=== PATIENT | female | born 1960 | race Caucasian/White ===

== ENCOUNTER 2017-10-29 12:07 | Emergency (ER) | payer MEDICAID ==
[~2017-10-29] VITALS: Ht 165.1 cm; Wt 82.8 kg
[~2017-10-29 12:07] MED LIST: ASPI-611 PO; ATOR10TA PO; COL100C PO; EZET10TA14 PO; GABA-532 PO; HYDR-3972 PO; METF500T4 PO; METO25TA6 PO; NAPR-56 PO; SERT100T10 PO; TIZA2TAB4 PO
[2017-10-29] MEDS ORDERED: SULF1TAB49 PO (13:39)
[2017-10-29] MEDS ORDERED: HYDR-3965 PO (13:56)
[2017-10-29 14:14] VITALS: BP 139/85
== END 2017-10-29 14:16 | disposition home or self-care (01) ==
LOC: ER 12:08
DX: L02.213 Cutaneous abscess of chest wall (principal); I25.10 Atherosclerotic heart disease of native coronary artery without angina pectoris; I10 Essential (primary) hypertension; E11.9 Type 2 diabetes mellitus without complications; Z95.1 Presence of aortocoronary bypass graft; Z98.890 Other specified postprocedural states; Z79.82 Long term (current) use of aspirin; Z79.84 Long term (current) use of oral hypoglycemic drugs; Z79.899 Other long term (current) drug therapy
CPT/HCPCS: 71046; 87070; 87077; 87186; 99285

== ENCOUNTER 2017-11-01 20:27 | Inpatient (IN) | payer MEDICAID ==
[~2017-11-01] VITALS: Ht 165.1 cm; Wt 84.6 kg
[~2017-11-01 20:27] MED LIST changes: +HYDR-3965 PO; +SULF1TAB49 PO
[2017-11-01] MEDS ORDERED: temazepam 15mg capsule PO PRN (21:00)
[2017-11-01 21:50] LABS: CLARITY,URINE CLEAR (Clear); COLOR,URINE YELLOW (Yellow); GLUCOSE, URINE NEGATIVE (Neg); KETONES,URINE TRACE mg/dl (Neg); LEUKOCYTE ESTERASE ,URINE TRACE (Neg); NITRITES, URINE NEGATIVE (Neg); OCCULT BLOOD,URINE NEGATIVE (Neg); PROTEIN,URINE TRACE mg/dl (Neg)
[2017-11-01 21:51] LABS: BASOPHILS % (AUTO) 0 % (0-1); EOSINOPHILS # (AUTO) 0.3 X10'3 (0-0.9); EOSINOPHILS % (AUTO) 2.4 % (0-6); HEMATOCRIT 29.4 % (35.0-45.0); HEMOGLOBIN 9.9 g/dl (12.0-16.0); LYMPHOCYTES # (AUTO) 1.8 X10'3 (1.1-4.8); LYMPHOCYTES % (AUTO) 15.8 % (21-51); MEAN CORPUSCULAR HEMOGLOBIN 28.2 PG (27.0-31.0); MEAN CORPUSCULAR HGB CONC 33.8 % (33.0-36.5); MEAN CORPUSCULAR VOLUME 83.4 FL (78-98); MEAN PLATELET VOLUME 8.7 FL (7.4-10.4); MONOCYTES # (AUTO) 1.3 X10'3 (0-0.9); MONOCYTES % (AUTO) 11.2 % (2-12); NEUTROPHILS # (AUTO) 8.1 X10'3 (1.8-7.7); NEUTROPHILS % (AUTO) 70.6 % (42-75); PLATELET COUNT 375 X10'3 (140-440); RED BLOOD COUNT 3.52 X10'6 (4.20-5.60); RED CELL DISTRIBUTION WIDTH 16.4 % (11.5-14.5); WHITE BLOOD COUNT 11.5 X10'3 (4.5-11.0)
[2017-11-01 22:02] LABS: UA COLLECTION TYPE CLN CATCH MIDSTREAM
[2017-11-01 22:02] LABS: PARTIAL THROMBOPLASTIN TIME 31 SECONDS (22-32); PROTHROMBIN TIME 10.1 SECONDS (9.0-12.0)
[2017-11-01 22:05] LABS: BACTERIA,URINE FEW /HPF (Neg); RBC,URINE 0-2 /HPF (0-2); SQUAMOUS EPITHELIAL CELL,UR MANY /LPF (FEW); WBC,URINE 0-4 /HPF (0-4)
[2017-11-01 22:08] LABS: ALANINE AMINOTRANSFERASE 7 U/L (12-78); ALBUMIN 2.4 G/DL (3.4-5.0); ALBUMIN/GLOBULIN RATIO 0.5 (1.1-1.5); ALKALINE PHOSPHATASE 381 IU/L (46-116); ANION GAP 12 (8-16); ASPARTATE AMINO TRANSFERASE 23 U/L (10-37); BILIRUBIN,TOTAL 0.3 MG/DL (0.1-1.0); BLOOD UREA NITROGEN 25 MG/DL (7-18); BUN/CREATININE RATIO 15.2 (6.6-38.0); CALCIUM 8.9 MG/DL (8.5-10.1); CHLORIDE 105 MMOL/L (99-107); CREATININE 1.65 MG/DL (0.40-0.90); GLUCOSE 125 MG/DL (70-104); POTASSIUM 4.1 MMOL/L (3.5-5.1); SODIUM 140 MMOL/L (135-145); TOTAL CARBON DIOXIDE 23.5 MMOL/L (24-32); TOTAL PROTEIN 7.3 G/DL (6.4-8.2); eGFR 32 ML/MIN
[2017-11-01] MEDS ORDERED: vancomycin inj 1,000 MG in normal saline 250ml IV soln 250 ML IV STA (23:03)
[2017-11-01] MEDS ORDERED: piperacillin/tazo 4.5gm/100ml 100 ML IV STA (23:03)
[2017-11-01] MEDS ORDERED: morphine 4 MG/ML inj SYRINge IV ONE (23:30)
[2017-11-01] MEDS ORDERED: HYDROcodone/acetaminophen 5mg/325mg tablet PO PRN (23:40)
[2017-11-01] MEDS ORDERED: acetaminophen 650mg rectal suppository RC PRN (23:40)
[2017-11-01] MEDS ORDERED: diphenhydrAMINE 50 mg/ml inj IV PRN (23:40)
[2017-11-01] MEDS ORDERED: dextrose 50%-water 50ml dispensing syringe IV PRN ×2 (23:40)
[2017-11-01] MEDS ORDERED: diphenhydrAMINE 25mg capsule PO PRN (23:40)
[2017-11-01] MEDS ORDERED: bisacodyl 10mg suppository rectal RC PRN (23:40)
[2017-11-01] MEDS ORDERED: mag hydrox/Alum hydrox/simeth 30ml oral suspension PO PRN (23:40)
[2017-11-01] MEDS ORDERED: dextrose ORAL solution 15 GM/59 ML bottle PO PRN ×2 (23:40)
[2017-11-01] MEDS ORDERED: magnesium hydroxide 30ml (MOM) UD suspension PO PRN (23:40)
[2017-11-01] MEDS ORDERED: ondansetron/PF 4mg/2ml inj IV PRN (23:40)
[2017-11-01] MEDS ORDERED: acetaminophen 325mg tablet PO PRN ×2 (23:40)
[2017-11-01] MEDS ORDERED: insulin Lispro (HumaLOG) vial - multi-dose SQ SCH (23:40)
[2017-11-01] MEDS ORDERED: metoclopramide 5 mg/ml inj IV PRN (23:40)
[2017-11-01] MEDS ORDERED: glucagon, human recombinant 1mg kit SUBCUT PRN (23:40)
[2017-11-01] MEDS ORDERED: MESSAGE TO PHARMACY PO ONE (23:40)
[2017-11-01] MEDS ORDERED: morphine 2 MG/ML inj. syringe IV PRN ×2 (23:40)
[2017-11-01] MEDS ORDERED: HYDROmorphone inj. 0.5 MG/0.5 ML DISP.SYRIN IV PRN (23:40)
[2017-11-02 00:02] LABS: MAGNESIUM 1.7 MG/DL (1.5-2.4)
[2017-11-02] MEDS: tizanidine 4mg tablet PO SCH ×3 (01:18→16:00)
[2017-11-02] MEDS: normal saline 1000ml 1,000 ML IV SCH ×3 (01:19→19:36)
[2017-11-02] MEDS ORDERED: vancomycin/NS 1 GM ADD-VANTAGE 250 ML IV ONE ×3 (01:30→16:15)
[2017-11-02] MEDS: HYDROmorphone inj. 0.5 MG/0.5 ML DISP.SYRIN IV PRN (02:00)
[2017-11-02 03:18] LABS: BASOPHILS % (AUTO) 0.2 % (0-1); EOSINOPHILS # (AUTO) 0.4 X10'3 (0-0.9); HEMATOCRIT 26.3 % (35.0-45.0); HEMOGLOBIN 8.7 g/dl (12.0-16.0); LYMPHOCYTES # (AUTO) 2.2 X10'3 (1.1-4.8); LYMPHOCYTES % (AUTO) 20.3 % (21-51); MEAN CORPUSCULAR HGB CONC 33.2 % (33.0-36.5); MEAN CORPUSCULAR VOLUME 84.5 FL (78-98); MEAN PLATELET VOLUME 8.4 FL (7.4-10.4); MONOCYTES # (AUTO) 1.4 X10'3 (0-0.9); MONOCYTES % (AUTO) 12.6 % (2-12); NEUTROPHILS # (AUTO) 6.8 X10'3 (1.8-7.7); NEUTROPHILS % (AUTO) 62.9 % (42-75); PLATELET COUNT 314 X10'3 (140-440); RED BLOOD COUNT 3.11 X10'6 (4.20-5.60); RED CELL DISTRIBUTION WIDTH 16.5 % (11.5-14.5); WHITE BLOOD COUNT 10.8 X10'3 (4.5-11.0)
[2017-11-02 03:43] LABS: ALANINE AMINOTRANSFERASE 10 U/L (12-78); ALBUMIN 2.2 G/DL (3.4-5.0); ALBUMIN/GLOBULIN RATIO 0.5 (1.1-1.5); ALKALINE PHOSPHATASE 335 IU/L (46-116); ANION GAP 10 (8-16); ASPARTATE AMINO TRANSFERASE 21 U/L (10-37); BILIRUBIN,TOTAL 0.5 MG/DL (0.1-1.0); BLOOD UREA NITROGEN 28 MG/DL (7-18); BUN/CREATININE RATIO 15.1 (6.6-38.0); CALCIUM 8.6 MG/DL (8.5-10.1); CHLORIDE 107 MMOL/L (99-107); CHOL/HDL RATIO 3.8 (0.00-4.99); CHOLESTEROL 68 MG/DL (0-200); CREATININE 1.85 MG/DL (0.40-0.90); GLUCOSE 126 MG/DL (70-104); HDL CHOLESTEROL 18 MG/DL (35-60); LDL CHOLESTEROL 35 MG/DL (50-100); POTASSIUM 4.1 MMOL/L (3.5-5.1); SODIUM 142 MMOL/L (135-145); TOTAL CARBON DIOXIDE 25.2 MMOL/L (24-32); TOTAL PROTEIN 6.5 G/DL (6.4-8.2); TRIGLYCERIDES 74 MG/DL (20-135); eGFR 28 ML/MIN
[2017-11-02] MEDS: lactobacillus rhamnosus 10,000 MMU CELLS/CAPSULE PO SCH ×2 (07:47→17:48)
[2017-11-02] MEDS: gabapentin 300mg capsule PO SCH ×2 (07:48→20:53)
[2017-11-02] MEDS: atorvastatin 10mg tablet PO SCH (07:48)
[2017-11-02] MEDS: docusate sod 100mg capsule PO SCH ×2 (07:48→20:53)
[2017-11-02] MEDS: pantoprazole 40mg Tablet.DR PO SCH (07:48)
[2017-11-02] MEDS: aspirin 81mg tablet.DR PO SCH (07:48)
[2017-11-02] MEDS: HYDROcodone/acetaminophen 10/325mg tab PO PRN ×3 (07:49→19:13)
[2017-11-02] MEDS: sertraline 50mg tablet PO SCH (07:49)
[2017-11-02] MEDS: piperacillin-tazo 2.25gm/50ml 50 ML IV SCH ×3 (07:50→21:29)
[2017-11-02] MEDS ORDERED: vancomycin/NS 1 GM ADD-VANTAGE 250 ML IV SCH (08:00)
[2017-11-02] MEDS ORDERED: piperacillin/tazo 4.5gm/100ml 100 ML IV SCH (08:00)
[2017-11-02] MEDS ORDERED: metoprolol tartrate 25mg tablet PO SCH ×2 (08:00)
[2017-11-02] MEDS: heparin, porcine 5000 units/ml vial SQ SCH ×2 (08:08→20:54)
[2017-11-02 13:58] VITALS: BP 108/41
[2017-11-02] MEDS ORDERED: HYDROcodone/acetaminophen 10/325mg tab PO ONE (14:20)
[2017-11-02] MEDS ORDERED: ceFAZolin inj. 2,000 MG in dextrose 5%-water 100 ML IV ONE (16:15)
[2017-11-02] MEDS ORDERED: cefazolin/dext.iso 2gm/50ml 50 ML IV ONE (16:25)
[2017-11-02 17:38] VITALS: BP 127/72
[2017-11-02 19:22] LABS: BASOPHILS # (AUTO) 0.1 X10'3 (0-0.2); BASOPHILS % (AUTO) 0.6 % (0-1); EOSINOPHILS # (AUTO) 0.4 X10'3 (0-0.9); EOSINOPHILS % (AUTO) 4.1 % (0-6); HEMATOCRIT 26.4 % (35.0-45.0); HEMOGLOBIN 8.8 g/dl (12.0-16.0); LYMPHOCYTES # (AUTO) 1.6 X10'3 (1.1-4.8); LYMPHOCYTES % (AUTO) 17.5 % (21-51); MEAN CORPUSCULAR HEMOGLOBIN 27.7 PG (27.0-31.0); MEAN CORPUSCULAR HGB CONC 33.2 % (33.0-36.5); MEAN CORPUSCULAR VOLUME 83.6 FL (78-98); MEAN PLATELET VOLUME 8.8 FL (7.4-10.4); MONOCYTES # (AUTO) 1.1 X10'3 (0-0.9); MONOCYTES % (AUTO) 11.8 % (2-12); NEUTROPHILS # (AUTO) 6.1 X10'3 (1.8-7.7); PLATELET COUNT 324 X10'3 (140-440); RED BLOOD COUNT 3.16 X10'6 (4.20-5.60); WHITE BLOOD COUNT 9.2 X10'3 (4.5-11.0)
[2017-11-02 19:33] LABS: PARTIAL THROMBOPLASTIN TIME 31 SECONDS (22-32); PROTHROMBIN TIME 10.3 SECONDS (9.0-12.0)
[2017-11-02 19:37] LABS: ALANINE AMINOTRANSFERASE 17 U/L (12-78); ALBUMIN 2.1 G/DL (3.4-5.0); ALBUMIN/GLOBULIN RATIO 0.5 (1.1-1.5); ALKALINE PHOSPHATASE 346 IU/L (46-116); ANION GAP 10 (8-16); ASPARTATE AMINO TRANSFERASE 14 U/L (10-37); BILIRUBIN,TOTAL 0.4 MG/DL (0.1-1.0); BLOOD UREA NITROGEN 31 MG/DL (7-18); CALCIUM 8.6 MG/DL (8.5-10.1); CHLORIDE 106 MMOL/L (99-107); CREATININE 1.82 MG/DL (0.40-0.90); GLUCOSE 113 MG/DL (70-104); POTASSIUM 4.5 MMOL/L (3.5-5.1); SODIUM 140 MMOL/L (135-145); TOTAL CARBON DIOXIDE 23.6 MMOL/L (24-32); TOTAL PROTEIN 6.5 G/DL (6.4-8.2); eGFR 29 ML/MIN
[2017-11-02] MEDS: metoprolol tartrate 12.5mg (1/2 tablet) PO SCH (20:00)
[2017-11-02] MEDS: metoprolol tartrate 25mg tablet PO SCH (20:53)
[2017-11-02] MEDS: ezetimibe 10mg tablet PO SCH (21:03)
[2017-11-02 22:00] VITALS: BP 116/41
[2017-11-03] VITALS (14 sets, daily range): BP systolic 96–150; BP diastolic 44–68
[2017-11-03] MEDS: tizanidine 4mg tablet PO SCH ×3 (00:46→16:00)
[2017-11-03] MEDS: HYDROcodone/acetaminophen 10/325mg tab PO PRN ×4 (00:48→20:29)
[2017-11-03] MEDS ORDERED: vancomycin inj 1,250 MG in normal saline 250ml IV soln 250 ML IV SCH ×2 (02:00→20:00)
[2017-11-03] MEDS: piperacillin-tazo 2.25gm/50ml 50 ML IV SCH ×4 (02:40→20:30)
[2017-11-03] MEDS: normal saline 1000ml 1,000 ML IV SCH ×2 (05:36→08:46)
[2017-11-03 06:02] LABS: BASOPHILS % (AUTO) 0.5 % (0-1); EOSINOPHILS # (AUTO) 0.4 X10'3 (0-0.9); EOSINOPHILS % (AUTO) 4.2 % (0-6); HEMATOCRIT 24.7 % (35.0-45.0); HEMOGLOBIN 8.2 g/dl (12.0-16.0); LYMPHOCYTES # (AUTO) 1.7 X10'3 (1.1-4.8); LYMPHOCYTES % (AUTO) 19.2 % (21-51); MEAN CORPUSCULAR HEMOGLOBIN 27.9 PG (27.0-31.0); MEAN CORPUSCULAR HGB CONC 33.2 % (33.0-36.5); MEAN CORPUSCULAR VOLUME 83.9 FL (78-98); MEAN PLATELET VOLUME 8.6 FL (7.4-10.4); MONOCYTES # (AUTO) 1.2 X10'3 (0-0.9); MONOCYTES % (AUTO) 13.7 % (2-12); NEUTROPHILS # (AUTO) 5.5 X10'3 (1.8-7.7); NEUTROPHILS % (AUTO) 62.4 % (42-75); PLATELET COUNT 330 X10'3 (140-440); RED BLOOD COUNT 2.95 X10'6 (4.20-5.60); RED CELL DISTRIBUTION WIDTH 16.5 % (11.5-14.5); WHITE BLOOD COUNT 8.9 X10'3 (4.5-11.0)
[2017-11-03 06:45] LABS: ALANINE AMINOTRANSFERASE 17 U/L (12-78); ALBUMIN 1.9 G/DL (3.4-5.0); ALBUMIN/GLOBULIN RATIO 0.4 (1.1-1.5); ALKALINE PHOSPHATASE 374 IU/L (46-116); ANION GAP 10 (8-16); ASPARTATE AMINO TRANSFERASE 14 U/L (10-37); BILIRUBIN,TOTAL 0.4 MG/DL (0.1-1.0); BLOOD UREA NITROGEN 28 MG/DL (7-18); BUN/CREATININE RATIO 15.8 (6.6-38.0); CALCIUM 8.5 MG/DL (8.5-10.1); CHLORIDE 109 MMOL/L (99-107); CREATININE 1.77 MG/DL (0.40-0.90); GLUCOSE 100 MG/DL (70-104); POTASSIUM 4.4 MMOL/L (3.5-5.1); SODIUM 141 MMOL/L (135-145); TOTAL PROTEIN 6.4 G/DL (6.4-8.2); eGFR 30 ML/MIN
[2017-11-03] MEDS: lactobacillus rhamnosus 10,000 MMU CELLS/CAPSULE PO SCH ×2 (07:07→17:17)
[2017-11-03] MEDS: heparin, porcine 5000 units/ml vial SQ SCH ×2 (07:07→20:17)
[2017-11-03] MEDS: docusate sod 100mg capsule PO SCH ×3 (07:08→20:16)
[2017-11-03] MEDS: metoprolol tartrate 12.5mg (1/2 tablet) PO SCH ×2 (07:08→20:16)
[2017-11-03] MEDS: metoprolol tartrate 25mg tablet PO SCH ×2 (07:09→20:16)
[2017-11-03] MEDS: aspirin 81mg tablet.DR PO SCH (07:09)
[2017-11-03] MEDS: atorvastatin 10mg tablet PO SCH (07:09)
[2017-11-03] MEDS: gabapentin 300mg capsule PO SCH ×2 (07:10→20:16)
[2017-11-03] MEDS: sertraline 50mg tablet PO SCH (07:10)
[2017-11-03] MEDS: pantoprazole 40mg Tablet.DR PO SCH (08:35)
[2017-11-03] MEDS ORDERED: BUPIVAcaine/PF 2.5 mg/ml (0.25%) 30ml vial ONE (12:24)
[2017-11-03] MEDS ORDERED: BUPIVAcaine 0.5% inj/PF 0 ML ONE (12:24)
[2017-11-03] MEDS ORDERED: sevoflurane 250ml liquid IH ONE (12:58)
[2017-11-03] MEDS ORDERED: fentaNYL/PF 50MCG/1 ML 2ML syringe ONE (12:59)
[2017-11-03] MEDS ORDERED: midazolam 2 mg/2 ml injection ONE (13:00)
[2017-11-03] MEDS ORDERED: morphine 2 MG/ML inj. syringe IV PRN ×2 (13:25)
[2017-11-03] MEDS ORDERED: ondansetron/PF 4mg/2ml inj IV PRN ×2 (13:25→13:55)
[2017-11-03] MEDS ORDERED: meperidine/PF 50mg/ml syringe IV PRN ×3 (13:25)
[2017-11-03] MEDS ORDERED: ringers solution, lacted 1,000 ML IV SCH (13:25)
[2017-11-03] MEDS ORDERED: proCHLORperazine 10 MG/2 ml inj IV PRN (13:25)
[2017-11-03] MEDS ORDERED: propofol inj 20 ML IV ONE (13:42)
[2017-11-03] MEDS ORDERED: rocuronium 10mg/ml inj IV ONE (13:42)
[2017-11-03] MEDS ORDERED: glycopyrrolate 0.2mg/ml inj ONE (13:42)
[2017-11-03] MEDS ORDERED: neostigmine methylsulfate 1 MG/ML 10ml vial ONE (13:42)
[2017-11-03] MEDS: HYDROmorphone inj. 0.5 MG/0.5 ML DISP.SYRIN IV PRN (18:30)
[2017-11-03] MEDS: ezetimibe 10mg tablet PO SCH (20:16)
[2017-11-04] VITALS (7 sets, daily range): BP systolic 130–160; BP diastolic 48–62
[2017-11-04] MEDS: tizanidine 4mg tablet PO SCH ×4 (00:50→16:12)
[2017-11-04] MEDS: HYDROcodone/acetaminophen 10/325mg tab PO PRN ×5 (00:50→23:49)
[2017-11-04] MEDS: normal saline 1000ml 1,000 ML IV SCH ×2 (01:36→11:36)
[2017-11-04] MEDS: piperacillin-tazo 2.25gm/50ml 50 ML IV SCH ×2 (02:18→07:25)
[2017-11-04] MEDS ORDERED: morphine 4 MG/ML inj SYRINge IV PRN ×2 (06:55)
[2017-11-04 07:02] LABS: BASOPHILS # (AUTO) 0.1 X10'3 (0-0.2); BASOPHILS % (AUTO) 0.5 % (0-1); EOSINOPHILS # (AUTO) 0.4 X10'3 (0-0.9); HEMATOCRIT 24.9 % (35.0-45.0); HEMOGLOBIN 8.3 g/dl (12.0-16.0); LYMPHOCYTES # (AUTO) 1.9 X10'3 (1.1-4.8); LYMPHOCYTES % (AUTO) 19.3 % (21-51); MEAN CORPUSCULAR HEMOGLOBIN 28.1 PG (27.0-31.0); MEAN CORPUSCULAR HGB CONC 33.2 % (33.0-36.5); MEAN CORPUSCULAR VOLUME 84.6 FL (78-98); MEAN PLATELET VOLUME 8.3 FL (7.4-10.4); MONOCYTES # (AUTO) 1.1 X10'3 (0-0.9); MONOCYTES % (AUTO) 10.9 % (2-12); NEUTROPHILS # (AUTO) 6.3 X10'3 (1.8-7.7); NEUTROPHILS % (AUTO) 65.3 % (42-75); PLATELET COUNT 374 X10'3 (140-440); RED BLOOD COUNT 2.95 X10'6 (4.20-5.60); WHITE BLOOD COUNT 9.7 X10'3 (4.5-11.0)
[2017-11-04] MEDS: lactobacillus rhamnosus 10,000 MMU CELLS/CAPSULE PO SCH ×2 (07:25→20:14)
[2017-11-04] MEDS: heparin, porcine 5000 units/ml vial SQ SCH ×2 (07:25→20:15)
[2017-11-04] MEDS: atorvastatin 10mg tablet PO SCH (07:25)
[2017-11-04] MEDS: sertraline 50mg tablet PO SCH (07:25)
[2017-11-04] MEDS: gabapentin 300mg capsule PO SCH ×2 (07:25→20:13)
[2017-11-04] MEDS: docusate sod 100mg capsule PO SCH ×3 (07:26→20:13)
[2017-11-04] MEDS: pantoprazole 40mg Tablet.DR PO SCH (07:27)
[2017-11-04] MEDS: aspirin 81mg tablet.DR PO SCH (07:27)
[2017-11-04 07:31] LABS: ALANINE AMINOTRANSFERASE 14 U/L (12-78); ALBUMIN 1.8 G/DL (3.4-5.0); ALBUMIN/GLOBULIN RATIO 0.4 (1.1-1.5); ALKALINE PHOSPHATASE 438 IU/L (46-116); ANION GAP 11 (8-16); ASPARTATE AMINO TRANSFERASE 17 U/L (10-37); BILIRUBIN,TOTAL 0.4 MG/DL (0.1-1.0); BLOOD UREA NITROGEN 20 MG/DL (7-18); BUN/CREATININE RATIO 13.6 (6.6-38.0); CALCIUM 8.8 MG/DL (8.5-10.1); CHLORIDE 107 MMOL/L (99-107); CREATININE 1.47 MG/DL (0.40-0.90); GLUCOSE 96 MG/DL (70-104); POTASSIUM 4.6 MMOL/L (3.5-5.1); SODIUM 140 MMOL/L (135-145); TOTAL CARBON DIOXIDE 22.3 MMOL/L (24-32); TOTAL PROTEIN 6.5 G/DL (6.4-8.2); eGFR 37 ML/MIN
[2017-11-04] MEDS: metoprolol tartrate 25mg tablet PO SCH ×2 (08:00→23:48)
[2017-11-04] MEDS: metoprolol tartrate 12.5mg (1/2 tablet) PO SCH (08:00)
[2017-11-04] MEDS ORDERED: HYDROcodone/acetaminophen 10/325mg tab PO ONE (15:25)
[2017-11-04] MEDS: sulfamethoxazole/trimethoprim DS (800/160mg) tablet PO SCH (20:14)
[2017-11-04] MEDS: ezetimibe 10mg tablet PO SCH (20:14)
[2017-11-05 03:00] VITALS: BP 140/67
[2017-11-05 06:00] VITALS: BP 143/57
[2017-11-05] MEDS: HYDROcodone/acetaminophen 10/325mg tab PO PRN ×4 (06:04→20:56)
[2017-11-05 06:06] LABS: BASOPHILS # (AUTO) 0.1 X10'3 (0-0.2); BASOPHILS % (AUTO) 0.8 % (0-1); EOSINOPHILS # (AUTO) 0.5 X10'3 (0-0.9); EOSINOPHILS % (AUTO) 6.3 % (0-6); HEMATOCRIT 25.8 % (35.0-45.0); HEMOGLOBIN 8.5 g/dl (12.0-16.0); LYMPHOCYTES # (AUTO) 2.1 X10'3 (1.1-4.8); LYMPHOCYTES % (AUTO) 24.5 % (21-51); MEAN CORPUSCULAR HEMOGLOBIN 27.9 PG (27.0-31.0); MEAN CORPUSCULAR HGB CONC 32.9 % (33.0-36.5); MEAN CORPUSCULAR VOLUME 84.7 FL (78-98); MEAN PLATELET VOLUME 8.3 FL (7.4-10.4); MONOCYTES # (AUTO) 1.1 X10'3 (0-0.9); MONOCYTES % (AUTO) 12.4 % (2-12); NEUTROPHILS # (AUTO) 4.8 X10'3 (1.8-7.7); PLATELET COUNT 427 X10'3 (140-440); RED BLOOD COUNT 3.05 X10'6 (4.20-5.60); RED CELL DISTRIBUTION WIDTH 16.6 % (11.5-14.5); WHITE BLOOD COUNT 8.5 X10'3 (4.5-11.0)
[2017-11-05 07:20] LABS: ALANINE AMINOTRANSFERASE 15 U/L (12-78); ALBUMIN 1.9 G/DL (3.4-5.0); ALBUMIN/GLOBULIN RATIO 0.4 (1.1-1.5); ALKALINE PHOSPHATASE 452 IU/L (46-116); ANION GAP 11 (8-16); ASPARTATE AMINO TRANSFERASE 16 U/L (10-37); BILIRUBIN,TOTAL 0.2 MG/DL (0.1-1.0); BLOOD UREA NITROGEN 16 MG/DL (7-18); BUN/CREATININE RATIO 11.7 (6.6-38.0); CALCIUM 8.8 MG/DL (8.5-10.1); CHLORIDE 107 MMOL/L (99-107); CREATININE 1.37 MG/DL (0.40-0.90); GLUCOSE 131 MG/DL (70-104); POTASSIUM 4.5 MMOL/L (3.5-5.1); SODIUM 141 MMOL/L (135-145); TOTAL CARBON DIOXIDE 22.9 MMOL/L (24-32); TOTAL PROTEIN 6.9 G/DL (6.4-8.2); eGFR 40 ML/MIN
[2017-11-05] MEDS: gabapentin 300mg capsule PO SCH ×2 (07:39→20:41)
[2017-11-05] MEDS: docusate sod 100mg capsule PO SCH ×2 (07:39→20:40)
[2017-11-05] MEDS: aspirin 81mg tablet.DR PO SCH (07:39)
[2017-11-05] MEDS: lactobacillus rhamnosus 10,000 MMU CELLS/CAPSULE PO SCH ×2 (07:39→20:40)
[2017-11-05] MEDS: atorvastatin 10mg tablet PO SCH (07:40)
[2017-11-05] MEDS: pantoprazole 40mg Tablet.DR PO SCH (07:40)
[2017-11-05] MEDS: sertraline 50mg tablet PO SCH (07:41)
[2017-11-05] MEDS: metoprolol tartrate 25mg tablet PO SCH ×2 (07:41→20:00)
[2017-11-05] MEDS: tizanidine 4mg tablet PO SCH ×3 (07:41→16:43)
[2017-11-05] MEDS: sulfamethoxazole/trimethoprim DS (800/160mg) tablet PO SCH ×2 (07:41→20:41)
[2017-11-05] MEDS: heparin, porcine 5000 units/ml vial SQ SCH ×2 (07:42→20:42)
[2017-11-05 11:00] VITALS: BP 122/53
[2017-11-05 15:00] VITALS: BP 138/61
[2017-11-05 19:00] VITALS: BP 113/43
[2017-11-05] MEDS: ezetimibe 10mg tablet PO SCH (20:41)
[2017-11-05 22:00] VITALS: BP 169/69
[2017-11-06] VITALS (7 sets, daily range): BP systolic 127–175; BP diastolic 47–81
[2017-11-06] MEDS: tizanidine 4mg tablet PO SCH ×3 (00:33→16:12)
[2017-11-06] MEDS: HYDROcodone/acetaminophen 10/325mg tab PO PRN ×5 (01:11→20:15)
[2017-11-06 06:19] LABS: BASOPHILS # (AUTO) 0.1 X10'3 (0-0.2); BASOPHILS % (AUTO) 0.7 % (0-1); EOSINOPHILS # (AUTO) 0.6 X10'3 (0-0.9); EOSINOPHILS % (AUTO) 6.5 % (0-6); HEMATOCRIT 26.5 % (35.0-45.0); HEMOGLOBIN 8.7 g/dl (12.0-16.0); LYMPHOCYTES # (AUTO) 2.4 X10'3 (1.1-4.8); LYMPHOCYTES % (AUTO) 25.9 % (21-51); MEAN CORPUSCULAR HEMOGLOBIN 27.8 PG (27.0-31.0); MEAN CORPUSCULAR HGB CONC 32.8 % (33.0-36.5); MEAN CORPUSCULAR VOLUME 84.7 FL (78-98); MEAN PLATELET VOLUME 7.8 FL (7.4-10.4); MONOCYTES % (AUTO) 10.7 % (2-12); NEUTROPHILS # (AUTO) 5.2 X10'3 (1.8-7.7); NEUTROPHILS % (AUTO) 56.2 % (42-75); PLATELET COUNT 456 X10'3 (140-440); RED BLOOD COUNT 3.13 X10'6 (4.20-5.60); RED CELL DISTRIBUTION WIDTH 16.7 % (11.5-14.5); WHITE BLOOD COUNT 9.2 X10'3 (4.5-11.0)
[2017-11-06 07:00] LABS: ALANINE AMINOTRANSFERASE 15 U/L (12-78); ALBUMIN 1.9 G/DL (3.4-5.0); ALBUMIN/GLOBULIN RATIO 0.4 (1.1-1.5); ALKALINE PHOSPHATASE 457 IU/L (46-116); ANION GAP 14 (8-16); ASPARTATE AMINO TRANSFERASE 16 U/L (10-37); BILIRUBIN,TOTAL 0.2 MG/DL (0.1-1.0); BLOOD UREA NITROGEN 15 MG/DL (7-18); BUN/CREATININE RATIO 10.6 (6.6-38.0); CALCIUM 8.9 MG/DL (8.5-10.1); CHLORIDE 107 MMOL/L (99-107); CREATININE 1.42 MG/DL (0.40-0.90); GLUCOSE 104 MG/DL (70-104); POTASSIUM 4.7 MMOL/L (3.5-5.1); SODIUM 143 MMOL/L (135-145); TOTAL CARBON DIOXIDE 22.5 MMOL/L (24-32); TOTAL PROTEIN 7.1 G/DL (6.4-8.2); eGFR 38 ML/MIN
[2017-11-06] MEDS: sulfamethoxazole/trimethoprim DS (800/160mg) tablet PO SCH ×2 (07:32→20:14)
[2017-11-06] MEDS: lactobacillus rhamnosus 10,000 MMU CELLS/CAPSULE PO SCH ×2 (07:33→20:14)
[2017-11-06] MEDS: aspirin 81mg tablet.DR PO SCH (07:33)
[2017-11-06] MEDS: docusate sod 100mg capsule PO SCH ×2 (07:35→20:14)
[2017-11-06] MEDS: pantoprazole 40mg Tablet.DR PO SCH (07:36)
[2017-11-06] MEDS: atorvastatin 10mg tablet PO SCH (07:36)
[2017-11-06] MEDS: gabapentin 300mg capsule PO SCH ×2 (07:37→20:14)
[2017-11-06] MEDS: metoprolol tartrate 25mg tablet PO SCH ×2 (07:37→20:14)
[2017-11-06] MEDS: sertraline 50mg tablet PO SCH (07:38)
[2017-11-06] MEDS: heparin, porcine 5000 units/ml vial SQ SCH ×2 (07:39→20:16)
[2017-11-06] MEDS ORDERED: VANCOMYCIN LEVEL IV ONE (19:30)
[2017-11-06] MEDS: ezetimibe 10mg tablet PO SCH (20:15)
[2017-11-07] MEDS: tizanidine 4mg tablet PO SCH ×2 (00:14→08:26)
[2017-11-07] MEDS: HYDROcodone/acetaminophen 10/325mg tab PO PRN ×3 (00:14→13:18)
[2017-11-07 02:00] VITALS: BP 162/51
[2017-11-07 06:10] LABS: BASOPHILS % (AUTO) 0.4 % (0-1); EOSINOPHILS # (AUTO) 0.5 X10'3 (0-0.9); EOSINOPHILS % (AUTO) 5.5 % (0-6); HEMATOCRIT 26.5 % (35.0-45.0); HEMOGLOBIN 8.7 g/dl (12.0-16.0); LYMPHOCYTES # (AUTO) 2.2 X10'3 (1.1-4.8); LYMPHOCYTES % (AUTO) 22.7 % (21-51); MEAN CORPUSCULAR HGB CONC 32.8 % (33.0-36.5); MEAN CORPUSCULAR VOLUME 85.3 FL (78-98); MEAN PLATELET VOLUME 7.8 FL (7.4-10.4); MONOCYTES # (AUTO) 0.9 X10'3 (0-0.9); MONOCYTES % (AUTO) 8.6 % (2-12); NEUTROPHILS # (AUTO) 6.2 X10'3 (1.8-7.7); NEUTROPHILS % (AUTO) 62.8 % (42-75); PLATELET COUNT 474 X10'3 (140-440); RED CELL DISTRIBUTION WIDTH 16.5 % (11.5-14.5); WHITE BLOOD COUNT 9.9 X10'3 (4.5-11.0)
[2017-11-07 06:30] VITALS: BP 187/62
[2017-11-07] MEDS: pantoprazole 40mg Tablet.DR PO SCH (07:30)
[2017-11-07] MEDS: docusate sod 100mg capsule PO SCH (08:00)
[2017-11-07] MEDS: gabapentin 300mg capsule PO SCH (08:00)
[2017-11-07] MEDS: lactobacillus rhamnosus 10,000 MMU CELLS/CAPSULE PO SCH (08:24)
[2017-11-07] MEDS: atorvastatin 10mg tablet PO SCH (08:24)
[2017-11-07] MEDS: aspirin 81mg tablet.DR PO SCH (08:24)
[2017-11-07] MEDS: sulfamethoxazole/trimethoprim DS (800/160mg) tablet PO SCH (08:25)
[2017-11-07] MEDS: metoprolol tartrate 25mg tablet PO SCH (08:25)
[2017-11-07] MEDS: sertraline 50mg tablet PO SCH (08:26)
[2017-11-07] MEDS: heparin, porcine 5000 units/ml vial SQ SCH (08:27)
[2017-11-07 11:00] VITALS: BP_SYST 122; BP_SYST 147; BP_DIAS 53; BP_DIAS 64
== END 2017-11-07 15:45 | disposition home health service (06) | DRG 721 ==
LOC: ER 20:28 → ED HOLD 23:36 → ORTHO 4S 11-02 17:20 → PACU 11-03 12:21 → PCU 3S 11-03 15:06
PROVIDERS: ADMIT Family Medicine; ATTEND Orthopaedic Surgery
PROC: 0JB60ZZ Excision of Chest Subcutaneous Tissue and Fascia, Open Approach (ICD-10-PCS; principal; 2017-11-03 12:58)
DX: T81.4XXA Infection following a procedure, initial encounter (principal); N17.9 Acute kidney failure, unspecified; L03.313 Cellulitis of chest wall; I10 Essential (primary) hypertension; E11.9 Type 2 diabetes mellitus without complications; I25.10 Atherosclerotic heart disease of native coronary artery without angina pectoris; L02.213 Cutaneous abscess of chest wall; Y83.2 Surgical operation with anastomosis, bypass or graft as the cause of abnormal reaction of the patient, or of later complication, without mention of misadventure at the time of the procedure; K31.9 Disease of stomach and duodenum, unspecified; M54.9 Dorsalgia, unspecified; Z87.891 Personal history of nicotine dependence; Z95.1 Presence of aortocoronary bypass graft; Z80.1 Family history of malignant neoplasm of trachea, bronchus and lung; Y92.89 Other specified places as the place of occurrence of the external cause
CPT/HCPCS: 36415; 71045; 71250; 80053; 80061; 81001; 82948; 83605; 83735; 84145; 84484; 85025; 85610; 85730; 87040; 87070; 93005; 96374; 97110; 97116; 97162; 97530; 99285; A6253; A6257; A6449; A7000; J0690; J1170; J1644; J2250; J2270; J2543; J2704; J2710; J3010; J3370; J3490; J7030; J7060; J7120

== ENCOUNTER 2017-11-10 09:03 | Day surgery (SDC) | payer MEDICAID ==
[~2017-11-10 09:03] MED LIST changes: -HYDR-3965 PO
[2017-11-10] MEDS ORDERED: LIDOcaine 2% 5ml jelly ONE (09:48)
== END 2017-11-10 10:32 | disposition home or self-care (01) ==
LOC: WOUND CARE 09:03
PROVIDERS: ATTEND Surgery
DX: T81.31XA Disruption of external operation (surgical) wound, not elsewhere classified, initial encounter (principal); E11.622 Type 2 diabetes mellitus with other skin ulcer; L98.491 Non-pressure chronic ulcer of skin of other sites limited to breakdown of skin; K29.50 Unspecified chronic gastritis without bleeding; K44.9 Diaphragmatic hernia without obstruction or gangrene; L53.8 Other specified erythematous conditions; I25.10 Atherosclerotic heart disease of native coronary artery without angina pectoris; I10 Essential (primary) hypertension; I48.91 Unspecified atrial fibrillation; Z98.0 Intestinal bypass and anastomosis status; Z79.82 Long term (current) use of aspirin; Z79.899 Other long term (current) drug therapy; Z85.118 Personal history of other malignant neoplasm of bronchus and lung; Z87.891 Personal history of nicotine dependence; Z95.1 Presence of aortocoronary bypass graft; Z98.890 Other specified postprocedural states; Z79.01 Long term (current) use of anticoagulants; Z80.8 Family history of malignant neoplasm of other organs or systems; Y83.8 Other surgical procedures as the cause of abnormal reaction of the patient, or of later complication, without mention of misadventure at the time of the procedure
CPT/HCPCS: 36416; 82948; 97605; A4456

== ENCOUNTER 2017-11-16 10:35 | Day surgery (SDC) | payer MEDICAID ==
[2017-11-16] MEDS ORDERED: LIDOcaine 2% 5ml jelly ONE (11:23)
== END 2017-11-16 12:08 | disposition home or self-care (01) ==
LOC: WOUND CARE 10:35
PROVIDERS: ATTEND Surgery
DX: T81.31XD Disruption of external operation (surgical) wound, not elsewhere classified, subsequent encounter (principal); E11.622 Type 2 diabetes mellitus with other skin ulcer; L98.491 Non-pressure chronic ulcer of skin of other sites limited to breakdown of skin; K29.50 Unspecified chronic gastritis without bleeding; K44.9 Diaphragmatic hernia without obstruction or gangrene; I25.10 Atherosclerotic heart disease of native coronary artery without angina pectoris; I10 Essential (primary) hypertension; I48.91 Unspecified atrial fibrillation; Z98.0 Intestinal bypass and anastomosis status; Z79.82 Long term (current) use of aspirin; Z79.899 Other long term (current) drug therapy; Z85.118 Personal history of other malignant neoplasm of bronchus and lung; Z87.891 Personal history of nicotine dependence; Z95.1 Presence of aortocoronary bypass graft; Z98.890 Other specified postprocedural states; Z79.01 Long term (current) use of anticoagulants; Z80.8 Family history of malignant neoplasm of other organs or systems; Y83.8 Other surgical procedures as the cause of abnormal reaction of the patient, or of later complication, without mention of misadventure at the time of the procedure
CPT/HCPCS: 36416; 82948; 97605; A4456

== ENCOUNTER 2017-11-23 10:40 | Outpatient (CLI) | payer MEDICAID ==
[~2017-11-23 10:40] MED LIST changes: -SULF1TAB49 PO
== END 2017-11-23 11:47 | disposition home or self-care (01) ==
LOC: WOUND CARE 10:40
PROVIDERS: ATTEND Surgery
DX: T81.31XD Disruption of external operation (surgical) wound, not elsewhere classified, subsequent encounter (principal); E11.622 Type 2 diabetes mellitus with other skin ulcer; L98.491 Non-pressure chronic ulcer of skin of other sites limited to breakdown of skin; K29.50 Unspecified chronic gastritis without bleeding; K44.9 Diaphragmatic hernia without obstruction or gangrene; I25.10 Atherosclerotic heart disease of native coronary artery without angina pectoris; I10 Essential (primary) hypertension; I48.91 Unspecified atrial fibrillation; Z98.0 Intestinal bypass and anastomosis status; Z79.82 Long term (current) use of aspirin; Z79.899 Other long term (current) drug therapy; Z85.118 Personal history of other malignant neoplasm of bronchus and lung; Z87.891 Personal history of nicotine dependence; Z95.1 Presence of aortocoronary bypass graft; Z98.890 Other specified postprocedural states; Z79.01 Long term (current) use of anticoagulants; Z80.8 Family history of malignant neoplasm of other organs or systems; Y83.8 Other surgical procedures as the cause of abnormal reaction of the patient, or of later complication, without mention of misadventure at the time of the procedure
CPT/HCPCS: 36416; 82948; 97605

== ENCOUNTER 2017-11-28 19:59 | Emergency (ER) | payer MEDICAID ==
[~2017-11-28] VITALS: Ht 165.1 cm; Wt 85.0 kg
[2017-11-28 21:21] LABS: BASOPHILS # (AUTO) 0.1 X10'3 (0-0.2); BASOPHILS % (AUTO) 0.7 % (0-1); EOSINOPHILS # (AUTO) 0.5 X10'3 (0-0.9); EOSINOPHILS % (AUTO) 4.8 % (0-6); HEMATOCRIT 31.8 % (35.0-45.0); HEMOGLOBIN 10.7 g/dl (12.0-16.0); LYMPHOCYTES # (AUTO) 2.7 X10'3 (1.1-4.8); LYMPHOCYTES % (AUTO) 28.2 % (21-51); MEAN CORPUSCULAR HEMOGLOBIN 28.1 PG (27.0-31.0); MEAN CORPUSCULAR HGB CONC 33.6 % (33.0-36.5); MEAN CORPUSCULAR VOLUME 83.4 FL (78-98); MEAN PLATELET VOLUME 8.1 FL (7.4-10.4); MONOCYTES # (AUTO) 0.9 X10'3 (0-0.9); MONOCYTES % (AUTO) 9.1 % (2-12); NEUTROPHILS # (AUTO) 5.6 X10'3 (1.8-7.7); NEUTROPHILS % (AUTO) 57.2 % (42-75); PLATELET COUNT 372 X10'3 (140-440); RED BLOOD COUNT 3.81 X10'6 (4.20-5.60); RED CELL DISTRIBUTION WIDTH 17.1 % (11.5-14.5); WHITE BLOOD COUNT 9.7 X10'3 (4.5-11.0)
[2017-11-28 21:33] LABS: PARTIAL THROMBOPLASTIN TIME 26 SECONDS (22-32); PROTHROMBIN TIME 10.5 SECONDS (9.0-12.0)
[2017-11-28 21:39] LABS: ALANINE AMINOTRANSFERASE 22 U/L (12-78); ALBUMIN 2.9 G/DL (3.4-5.0); ALBUMIN/GLOBULIN RATIO 0.5 (1.1-1.5); ALKALINE PHOSPHATASE 176 IU/L (46-116); ANION GAP 10 (8-16); ASPARTATE AMINO TRANSFERASE 15 U/L (10-37); BILIRUBIN,TOTAL 0.2 MG/DL (0.1-1.0); BLOOD UREA NITROGEN 19 MG/DL (7-18); BUN/CREATININE RATIO 16.4 (6.6-38.0); CALCIUM 9.2 MG/DL (8.5-10.1); CHLORIDE 104 MMOL/L (99-107); CREATININE 1.16 MG/DL (0.40-0.90); GLUCOSE 137 MG/DL (70-104); POTASSIUM 4.4 MMOL/L (3.5-5.1); SODIUM 141 MMOL/L (135-145); TOTAL CARBON DIOXIDE 27.3 MMOL/L (24-32); TOTAL PROTEIN 8.7 G/DL (6.4-8.2); eGFR 48 ML/MIN
[2017-11-29 00:59] VITALS: BP 140/63
[2017-11-29] MEDS ORDERED: HYDROcodone/acetaminophen 10/325mg tab PO ONE (01:00)
== END 2017-11-29 03:26 | disposition home or self-care (01) ==
LOC: ER 19:59
DX: R10.9 Unspecified abdominal pain (principal); I25.10 Atherosclerotic heart disease of native coronary artery without angina pectoris; E11.9 Type 2 diabetes mellitus without complications; I10 Essential (primary) hypertension; Z98.890 Other specified postprocedural states; Z79.82 Long term (current) use of aspirin; Z79.84 Long term (current) use of oral hypoglycemic drugs; Z79.899 Other long term (current) drug therapy
CPT/HCPCS: 36415; 71045; 71250; 74018; 74176; 80053; 84484; 85025; 85610; 85730; 99285

== ENCOUNTER 2017-11-30 10:30 | Day surgery (SDC) | payer MEDICAID ==
[2017-11-30] MEDS ORDERED: LIDOcaine 2% 5ml jelly ONE (11:26)
== END 2017-11-30 12:39 | disposition home or self-care (01) ==
LOC: WOUND CARE 10:30
PROVIDERS: ATTEND Surgery
DX: T81.31XD Disruption of external operation (surgical) wound, not elsewhere classified, subsequent encounter (principal); E11.622 Type 2 diabetes mellitus with other skin ulcer; L98.491 Non-pressure chronic ulcer of skin of other sites limited to breakdown of skin; K29.50 Unspecified chronic gastritis without bleeding; K44.9 Diaphragmatic hernia without obstruction or gangrene; I25.10 Atherosclerotic heart disease of native coronary artery without angina pectoris; I10 Essential (primary) hypertension; I48.91 Unspecified atrial fibrillation; Z98.0 Intestinal bypass and anastomosis status; Z79.82 Long term (current) use of aspirin; Z79.899 Other long term (current) drug therapy; Z85.118 Personal history of other malignant neoplasm of bronchus and lung; Z87.891 Personal history of nicotine dependence; Z95.1 Presence of aortocoronary bypass graft; Z98.890 Other specified postprocedural states; Z79.01 Long term (current) use of anticoagulants; Z80.8 Family history of malignant neoplasm of other organs or systems; Y83.8 Other surgical procedures as the cause of abnormal reaction of the patient, or of later complication, without mention of misadventure at the time of the procedure
CPT/HCPCS: 11042; 36416; 82948; 97605; A6021

== ENCOUNTER 2017-12-07 10:40 | Day surgery (SDC) | payer MEDICAID ==
[2017-12-07] MEDS ORDERED: LIDOcaine 2% 5ml jelly ONE (11:03)
== END 2017-12-07 12:25 | disposition home or self-care (01) ==
LOC: WOUND CARE 10:40
PROVIDERS: ATTEND Surgery
DX: T81.31XD Disruption of external operation (surgical) wound, not elsewhere classified, subsequent encounter (principal); E11.622 Type 2 diabetes mellitus with other skin ulcer; L98.491 Non-pressure chronic ulcer of skin of other sites limited to breakdown of skin; K29.50 Unspecified chronic gastritis without bleeding; K44.9 Diaphragmatic hernia without obstruction or gangrene; I25.10 Atherosclerotic heart disease of native coronary artery without angina pectoris; I10 Essential (primary) hypertension; I48.91 Unspecified atrial fibrillation; Z98.0 Intestinal bypass and anastomosis status; Z79.82 Long term (current) use of aspirin; Z79.899 Other long term (current) drug therapy; Z85.118 Personal history of other malignant neoplasm of bronchus and lung; Z87.891 Personal history of nicotine dependence; Z95.1 Presence of aortocoronary bypass graft; Z98.890 Other specified postprocedural states; Z79.01 Long term (current) use of anticoagulants; Z80.8 Family history of malignant neoplasm of other organs or systems; Y83.8 Other surgical procedures as the cause of abnormal reaction of the patient, or of later complication, without mention of misadventure at the time of the procedure
CPT/HCPCS: 11042; 36416; 82948; 97605; A6021; A4456

== ENCOUNTER 2017-12-16 10:40 | Day surgery (SDC) | payer MEDICAID ==
[2017-12-16] MEDS ORDERED: LIDOcaine 2% 5ml jelly ONE (11:20)
== END 2017-12-16 12:45 | disposition home or self-care (01) ==
LOC: WOUND CARE 10:40
PROVIDERS: ATTEND Surgery
DX: T81.31XD Disruption of external operation (surgical) wound, not elsewhere classified, subsequent encounter (principal); E11.622 Type 2 diabetes mellitus with other skin ulcer; L98.491 Non-pressure chronic ulcer of skin of other sites limited to breakdown of skin; K29.50 Unspecified chronic gastritis without bleeding; K44.9 Diaphragmatic hernia without obstruction or gangrene; I25.10 Atherosclerotic heart disease of native coronary artery without angina pectoris; I10 Essential (primary) hypertension; I48.91 Unspecified atrial fibrillation; Z98.0 Intestinal bypass and anastomosis status; Z79.82 Long term (current) use of aspirin; Z79.899 Other long term (current) drug therapy; Z85.118 Personal history of other malignant neoplasm of bronchus and lung; Z87.891 Personal history of nicotine dependence; Z95.1 Presence of aortocoronary bypass graft; Z98.890 Other specified postprocedural states; Z79.01 Long term (current) use of anticoagulants; Z80.8 Family history of malignant neoplasm of other organs or systems; Y83.2 Surgical operation with anastomosis, bypass or graft as the cause of abnormal reaction of the patient, or of later complication, without mention of misadventure at the time of the procedure
CPT/HCPCS: 11042; 36416; 76882; 82948; A6021; A6212

== ENCOUNTER 2017-12-21 10:45 | Day surgery (SDC) | payer MEDICAID ==
[2017-12-21] MEDS ORDERED: LIDOcaine 2% 5ml jelly ONE (11:19)
[2017-12-21] MEDS ORDERED: nystatin 15 GM powder TP ONE (12:09)
[2017-12-21] MEDS ORDERED: nystatin/triamcinolone cream 15gm TP ONE (12:09)
== END 2017-12-21 12:42 | disposition home or self-care (01) ==
LOC: WOUND CARE 10:45
PROVIDERS: ATTEND Surgery
DX: T81.31XD Disruption of external operation (surgical) wound, not elsewhere classified, subsequent encounter (principal); E11.622 Type 2 diabetes mellitus with other skin ulcer; L98.491 Non-pressure chronic ulcer of skin of other sites limited to breakdown of skin; K29.50 Unspecified chronic gastritis without bleeding; K44.9 Diaphragmatic hernia without obstruction or gangrene; I25.10 Atherosclerotic heart disease of native coronary artery without angina pectoris; I10 Essential (primary) hypertension; I48.91 Unspecified atrial fibrillation; Z98.0 Intestinal bypass and anastomosis status; Z79.82 Long term (current) use of aspirin; Z79.899 Other long term (current) drug therapy; Z85.118 Personal history of other malignant neoplasm of bronchus and lung; Z87.891 Personal history of nicotine dependence; Z95.1 Presence of aortocoronary bypass graft; Z98.890 Other specified postprocedural states; Z79.01 Long term (current) use of anticoagulants; Z80.8 Family history of malignant neoplasm of other organs or systems; Y83.2 Surgical operation with anastomosis, bypass or graft as the cause of abnormal reaction of the patient, or of later complication, without mention of misadventure at the time of the procedure
CPT/HCPCS: 36416; 71046; 82948; 97605

== ENCOUNTER 2017-12-28 10:53 | Day surgery (SDC) | payer MEDICAID ==
[2017-12-28] MEDS ORDERED: LIDOcaine 2% 5ml jelly ONE (11:17)
== END 2017-12-28 11:55 | disposition home or self-care (01) ==
LOC: WOUND CARE 10:53
PROVIDERS: ATTEND Surgery
DX: T81.31XD Disruption of external operation (surgical) wound, not elsewhere classified, subsequent encounter (principal); E11.622 Type 2 diabetes mellitus with other skin ulcer; L98.492 Non-pressure chronic ulcer of skin of other sites with fat layer exposed; E11.65 Type 2 diabetes mellitus with hyperglycemia; K29.50 Unspecified chronic gastritis without bleeding; K44.9 Diaphragmatic hernia without obstruction or gangrene; I25.10 Atherosclerotic heart disease of native coronary artery without angina pectoris; I10 Essential (primary) hypertension; I48.91 Unspecified atrial fibrillation; F17.200 Nicotine dependence, unspecified, uncomplicated; Z98.0 Intestinal bypass and anastomosis status; Z79.82 Long term (current) use of aspirin; Z79.899 Other long term (current) drug therapy; Z85.118 Personal history of other malignant neoplasm of bronchus and lung; Z95.1 Presence of aortocoronary bypass graft; Z98.890 Other specified postprocedural states; Z79.01 Long term (current) use of anticoagulants; Z80.8 Family history of malignant neoplasm of other organs or systems; Y83.2 Surgical operation with anastomosis, bypass or graft as the cause of abnormal reaction of the patient, or of later complication, without mention of misadventure at the time of the procedure
CPT/HCPCS: 11042; 36416; 82948; A6021; A6206; A6212

== ENCOUNTER 2018-01-04 10:44 | Day surgery (SDC) | payer MEDICAID ==
[2018-01-04] MEDS ORDERED: LIDOcaine 2% 5ml jelly ONE (11:21)
== END 2018-01-04 11:52 | disposition home or self-care (01) ==
LOC: WOUND CARE 10:44
PROVIDERS: ATTEND Surgery
DX: T81.31XD Disruption of external operation (surgical) wound, not elsewhere classified, subsequent encounter (principal); E11.622 Type 2 diabetes mellitus with other skin ulcer; L98.492 Non-pressure chronic ulcer of skin of other sites with fat layer exposed; E11.65 Type 2 diabetes mellitus with hyperglycemia; K29.50 Unspecified chronic gastritis without bleeding; K44.9 Diaphragmatic hernia without obstruction or gangrene; I25.10 Atherosclerotic heart disease of native coronary artery without angina pectoris; I10 Essential (primary) hypertension; I48.91 Unspecified atrial fibrillation; F17.200 Nicotine dependence, unspecified, uncomplicated; Z98.0 Intestinal bypass and anastomosis status; Z79.82 Long term (current) use of aspirin; Z79.899 Other long term (current) drug therapy; Z85.118 Personal history of other malignant neoplasm of bronchus and lung; Z95.1 Presence of aortocoronary bypass graft; Z98.890 Other specified postprocedural states; Z79.01 Long term (current) use of anticoagulants; Z80.8 Family history of malignant neoplasm of other organs or systems; Y83.2 Surgical operation with anastomosis, bypass or graft as the cause of abnormal reaction of the patient, or of later complication, without mention of misadventure at the time of the procedure
CPT/HCPCS: 15271; 36416; 82948; A6021; A6206; A6209; A6222; Q4131; A6250

== ENCOUNTER 2018-01-11 10:45 | Day surgery (SDC) | payer MEDICAID ==
[2018-01-11] MEDS ORDERED: LIDOcaine 2% 5ml jelly ONE (11:14)
== END 2018-01-11 11:00 | disposition home or self-care (01) ==
LOC: WOUND CARE 10:45
PROVIDERS: ATTEND Surgery
DX: T81.31XD Disruption of external operation (surgical) wound, not elsewhere classified, subsequent encounter (principal); E11.622 Type 2 diabetes mellitus with other skin ulcer; L98.492 Non-pressure chronic ulcer of skin of other sites with fat layer exposed; E11.65 Type 2 diabetes mellitus with hyperglycemia; K29.50 Unspecified chronic gastritis without bleeding; K44.9 Diaphragmatic hernia without obstruction or gangrene; I25.10 Atherosclerotic heart disease of native coronary artery without angina pectoris; I10 Essential (primary) hypertension; I48.91 Unspecified atrial fibrillation; F17.200 Nicotine dependence, unspecified, uncomplicated; Z98.0 Intestinal bypass and anastomosis status; Z79.82 Long term (current) use of aspirin; Z79.899 Other long term (current) drug therapy; Z85.118 Personal history of other malignant neoplasm of bronchus and lung; Z95.1 Presence of aortocoronary bypass graft; Z98.890 Other specified postprocedural states; Z79.01 Long term (current) use of anticoagulants; Z80.8 Family history of malignant neoplasm of other organs or systems; Y83.8 Other surgical procedures as the cause of abnormal reaction of the patient, or of later complication, without mention of misadventure at the time of the procedure
CPT/HCPCS: 36416; 82948; 97597; A6206; A6212

== ENCOUNTER 2018-01-18 10:28 | Day surgery (SDC) | payer MEDICAID ==
[~2018-01-18 10:28] MED LIST changes: +METF-436 PO; -METF500T4 PO
[2018-01-18] MEDS ORDERED: LIDOcaine 2% 5ml jelly ONE (10:57)
== END 2018-01-18 11:37 | disposition home or self-care (01) ==
LOC: WOUND CARE 10:28
PROVIDERS: ATTEND Surgery
DX: T81.31XD Disruption of external operation (surgical) wound, not elsewhere classified, subsequent encounter (principal); E11.622 Type 2 diabetes mellitus with other skin ulcer; L98.492 Non-pressure chronic ulcer of skin of other sites with fat layer exposed; E11.65 Type 2 diabetes mellitus with hyperglycemia; K29.50 Unspecified chronic gastritis without bleeding; K44.9 Diaphragmatic hernia without obstruction or gangrene; I25.10 Atherosclerotic heart disease of native coronary artery without angina pectoris; I10 Essential (primary) hypertension; I48.91 Unspecified atrial fibrillation; F17.200 Nicotine dependence, unspecified, uncomplicated; Z98.0 Intestinal bypass and anastomosis status; Z79.82 Long term (current) use of aspirin; Z79.899 Other long term (current) drug therapy; Z85.118 Personal history of other malignant neoplasm of bronchus and lung; Z95.1 Presence of aortocoronary bypass graft; Z98.890 Other specified postprocedural states; Z79.01 Long term (current) use of anticoagulants; Z80.8 Family history of malignant neoplasm of other organs or systems; Y83.8 Other surgical procedures as the cause of abnormal reaction of the patient, or of later complication, without mention of misadventure at the time of the procedure
CPT/HCPCS: 15271; 36416; 82948; A6212; A6222; Q4131; A6250

== ENCOUNTER 2018-01-25 10:30 | Day surgery (SDC) | payer MEDICAID ==
[2018-01-25] MEDS ORDERED: LIDOcaine 2% 5ml jelly ONE (11:09)
== END 2018-01-25 12:09 | disposition home or self-care (01) ==
LOC: WOUND CARE 10:30
PROVIDERS: ATTEND Surgery
DX: T81.31XD Disruption of external operation (surgical) wound, not elsewhere classified, subsequent encounter (principal); E11.622 Type 2 diabetes mellitus with other skin ulcer; L98.492 Non-pressure chronic ulcer of skin of other sites with fat layer exposed; E11.65 Type 2 diabetes mellitus with hyperglycemia; K29.50 Unspecified chronic gastritis without bleeding; K44.9 Diaphragmatic hernia without obstruction or gangrene; I25.10 Atherosclerotic heart disease of native coronary artery without angina pectoris; I10 Essential (primary) hypertension; I48.91 Unspecified atrial fibrillation; F17.200 Nicotine dependence, unspecified, uncomplicated; Z98.0 Intestinal bypass and anastomosis status; Z79.82 Long term (current) use of aspirin; Z79.899 Other long term (current) drug therapy; Z85.118 Personal history of other malignant neoplasm of bronchus and lung; Z95.1 Presence of aortocoronary bypass graft; Z98.890 Other specified postprocedural states; Z79.01 Long term (current) use of anticoagulants; Z80.8 Family history of malignant neoplasm of other organs or systems; Y83.2 Surgical operation with anastomosis, bypass or graft as the cause of abnormal reaction of the patient, or of later complication, without mention of misadventure at the time of the procedure
CPT/HCPCS: 36416; 71046; 82948; 97597; A6021; A6212; A6222

== ENCOUNTER 2018-01-27 17:01 | Emergency (ER) | payer MEDICAID ==
[~2018-01-27] VITALS: Ht 165.1 cm; Wt 80.7 kg
[2018-01-27 18:17] VITALS: BP 121/60
[2018-01-27 18:38] LABS: BASOPHILS % (AUTO) 0.5 % (0-1); EOSINOPHILS # (AUTO) 0.2 X10'3 (0-0.9); EOSINOPHILS % (AUTO) 1.9 % (0-6); HEMATOCRIT 29.5 % (35.0-45.0); HEMOGLOBIN 9.8 g/dl (12.0-16.0); LYMPHOCYTES # (AUTO) 1.7 X10'3 (1.1-4.8); LYMPHOCYTES % (AUTO) 16.8 % (21-51); MEAN CORPUSCULAR HGB CONC 33.1 % (33.0-36.5); MEAN CORPUSCULAR VOLUME 81.5 FL (78-98); MEAN PLATELET VOLUME 8.6 FL (7.4-10.4); MONOCYTES % (AUTO) 9.5 % (2-12); NEUTROPHILS # (AUTO) 7.2 X10'3 (1.8-7.7); NEUTROPHILS % (AUTO) 71.3 % (42-75); PLATELET COUNT 334 X10'3 (140-440); RED BLOOD COUNT 3.62 X10'6 (4.20-5.60); RED CELL DISTRIBUTION WIDTH 18.6 % (11.5-14.5); WHITE BLOOD COUNT 10.1 X10'3 (4.5-11.0)
[2018-01-27 18:49] LABS: PARTIAL THROMBOPLASTIN TIME 26 SECONDS (22-32); PROTHROMBIN TIME 10.1 SECONDS (9.0-12.0)
[2018-01-27 18:55] LABS: ALANINE AMINOTRANSFERASE 30 U/L (12-78); ALBUMIN 2.5 G/DL (3.4-5.0); ALBUMIN/GLOBULIN RATIO 0.4 (1.1-1.5); ALKALINE PHOSPHATASE 436 IU/L (46-116); ANION GAP 9 (8-16); ASPARTATE AMINO TRANSFERASE 40 U/L (10-37); BILIRUBIN,TOTAL 0.3 MG/DL (0.1-1.0); BLOOD UREA NITROGEN 31 MG/DL (7-18); BUN/CREATININE RATIO 20.5 (6.6-38.0); CALCIUM 9.2 MG/DL (8.5-10.1); CHLORIDE 103 MMOL/L (99-107); CREATININE 1.51 MG/DL (0.40-0.90); GLUCOSE 136 MG/DL (70-104); POTASSIUM 4.5 MMOL/L (3.5-5.1); SODIUM 140 MMOL/L (135-145); TOTAL PROTEIN 8.5 G/DL (6.4-8.2); eGFR 35 ML/MIN
[2018-01-27] MEDS ORDERED: ondansetron 4mg rapidly disintigrating tab PO ONE (19:25)
[2018-01-27] MEDS ORDERED: sulfamethoxazole/trimethoprim DS (800/160mg) tablet PO ONE (19:25)
[2018-01-27 19:27] LABS: CLARITY,URINE CLEAR (Clear); COLOR,URINE YELLOW (Yellow); GLUCOSE, URINE NEGATIVE (Neg); KETONES,URINE TRACE mg/dl (Neg); LEUKOCYTE ESTERASE ,URINE SMALL (Neg); NITRITES, URINE NEGATIVE (Neg); OCCULT BLOOD,URINE TRACE-INTACT (Neg); PH,URINE 5.5 (4.8-8.0); PROTEIN,URINE 30 mg/dl (Neg)
[2018-01-27] MEDS ORDERED: BACDS PO (19:27)
[2018-01-27 19:28] LABS: UA COLLECTION TYPE CLN CATCH MIDSTREAM
[2018-01-27] MEDS ORDERED: ONDA4TAB9 PO (19:30)
[2018-01-27 19:43] LABS: BACTERIA,URINE 1+ /HPF (Neg); MUCUS STRANDS NONE SEEN /LPF (Neg); SQUAMOUS EPITHELIAL CELL,UR MODERATE /LPF (FEW)
== END 2018-01-27 19:53 | disposition home or self-care (01) ==
LOC: ER 17:02
DX: L03.313 Cellulitis of chest wall (principal); D64.9 Anemia, unspecified; I25.10 Atherosclerotic heart disease of native coronary artery without angina pectoris; I10 Essential (primary) hypertension; E11.9 Type 2 diabetes mellitus without complications; Z95.1 Presence of aortocoronary bypass graft; Z98.890 Other specified postprocedural states; Z79.82 Long term (current) use of aspirin; Z79.899 Other long term (current) drug therapy
CPT/HCPCS: 36415; 71045; 80053; 81001; 83605; 84145; 85025; 85610; 85730; 87088; 99285

== ENCOUNTER 2018-01-31 10:45 | Day surgery (SDC) | payer MEDICAID ==
[~2018-01-31 10:45] MED LIST changes: +BACDS PO; +ONDA4TAB9 PO
[2018-01-31] MEDS ORDERED: LIDOcaine 1%/PF (10mg/ml) 5ml vial ONE ×2 (12:42→12:46)
[2018-01-31] MEDS ORDERED: CLIN-80 PO (14:22)
== END 2018-01-31 13:12 | disposition home or self-care (01) ==
LOC: WOUND CARE 10:45
PROVIDERS: ATTEND Surgery
DX: E11.622 Type 2 diabetes mellitus with other skin ulcer (principal); L98.492 Non-pressure chronic ulcer of skin of other sites with fat layer exposed; E11.65 Type 2 diabetes mellitus with hyperglycemia; K29.50 Unspecified chronic gastritis without bleeding; K44.9 Diaphragmatic hernia without obstruction or gangrene; I25.10 Atherosclerotic heart disease of native coronary artery without angina pectoris; I10 Essential (primary) hypertension; I48.91 Unspecified atrial fibrillation; F17.200 Nicotine dependence, unspecified, uncomplicated; Z98.0 Intestinal bypass and anastomosis status; Z79.82 Long term (current) use of aspirin; Z79.899 Other long term (current) drug therapy; Z85.118 Personal history of other malignant neoplasm of bronchus and lung; Z95.1 Presence of aortocoronary bypass graft; Z98.890 Other specified postprocedural states; Z79.01 Long term (current) use of anticoagulants; Z80.8 Family history of malignant neoplasm of other organs or systems
CPT/HCPCS: 10061; 36416; 82948; 87070; 87075; 87102; A6266; J2001; 87186

== ENCOUNTER 2018-02-02 08:58 | Day surgery (SDC) | payer MEDICAID ==
[~2018-02-02 08:58] MED LIST changes: +CLIN-80 PO
[2018-02-02] MEDS ORDERED: LIDOcaine 2% 5ml jelly ONE (09:38)
== END 2018-02-02 10:20 | disposition home or self-care (01) ==
LOC: WOUND CARE 08:58
PROVIDERS: ATTEND Surgery
DX: E11.622 Type 2 diabetes mellitus with other skin ulcer (principal); L98.492 Non-pressure chronic ulcer of skin of other sites with fat layer exposed; E11.65 Type 2 diabetes mellitus with hyperglycemia; K29.50 Unspecified chronic gastritis without bleeding; K44.9 Diaphragmatic hernia without obstruction or gangrene; I25.10 Atherosclerotic heart disease of native coronary artery without angina pectoris; I10 Essential (primary) hypertension; I48.91 Unspecified atrial fibrillation; F17.200 Nicotine dependence, unspecified, uncomplicated; Z98.0 Intestinal bypass and anastomosis status; Z79.82 Long term (current) use of aspirin; Z79.899 Other long term (current) drug therapy; Z85.118 Personal history of other malignant neoplasm of bronchus and lung; Z95.1 Presence of aortocoronary bypass graft; Z98.890 Other specified postprocedural states; Z79.01 Long term (current) use of anticoagulants; Z80.8 Family history of malignant neoplasm of other organs or systems
CPT/HCPCS: 36416; 82948; 97597; A6266

== ENCOUNTER 2018-02-06 08:47 | Day surgery (SDC) | payer MEDICAID ==
[~2018-02-06 08:47] MED LIST changes: -CLIN-80 PO; +CLIN300C85 PO
[2018-02-06] MEDS ORDERED: LIDOcaine 2% 5ml jelly ONE (09:36)
== END 2018-02-06 10:01 | disposition home or self-care (01) ==
LOC: WOUND CARE 08:47
PROVIDERS: ATTEND Surgery
DX: T81.89XD Other complications of procedures, not elsewhere classified, subsequent encounter (principal); E11.622 Type 2 diabetes mellitus with other skin ulcer; L98.492 Non-pressure chronic ulcer of skin of other sites with fat layer exposed; E11.65 Type 2 diabetes mellitus with hyperglycemia; K29.50 Unspecified chronic gastritis without bleeding; K44.9 Diaphragmatic hernia without obstruction or gangrene; I25.10 Atherosclerotic heart disease of native coronary artery without angina pectoris; I10 Essential (primary) hypertension; I48.91 Unspecified atrial fibrillation; F17.200 Nicotine dependence, unspecified, uncomplicated; Z98.0 Intestinal bypass and anastomosis status; Z79.82 Long term (current) use of aspirin; Z79.899 Other long term (current) drug therapy; Z85.118 Personal history of other malignant neoplasm of bronchus and lung; Z95.1 Presence of aortocoronary bypass graft; Z98.890 Other specified postprocedural states; Z79.01 Long term (current) use of anticoagulants; Z80.8 Family history of malignant neoplasm of other organs or systems; Y83.8 Other surgical procedures as the cause of abnormal reaction of the patient, or of later complication, without mention of misadventure at the time of the procedure
CPT/HCPCS: 11042; A6266

== ENCOUNTER 2018-02-09 08:52 | Day surgery (SDC) | payer MEDICAID ==
[~2018-02-09 08:52] MED LIST changes: -BACDS PO
[2018-02-09] MEDS ORDERED: LIDOcaine 2% 5ml jelly ONE (09:31)
== END 2018-02-09 10:23 | disposition home or self-care (01) ==
LOC: WOUND CARE 08:52
PROVIDERS: ATTEND Surgery
DX: T81.4XXD Infection following a procedure, subsequent encounter (principal); E11.622 Type 2 diabetes mellitus with other skin ulcer; L98.492 Non-pressure chronic ulcer of skin of other sites with fat layer exposed; E11.65 Type 2 diabetes mellitus with hyperglycemia; K29.50 Unspecified chronic gastritis without bleeding; K44.9 Diaphragmatic hernia without obstruction or gangrene; I25.10 Atherosclerotic heart disease of native coronary artery without angina pectoris; I10 Essential (primary) hypertension; I48.91 Unspecified atrial fibrillation; F17.200 Nicotine dependence, unspecified, uncomplicated; Z98.0 Intestinal bypass and anastomosis status; Z79.82 Long term (current) use of aspirin; Z79.899 Other long term (current) drug therapy; Z85.118 Personal history of other malignant neoplasm of bronchus and lung; Z95.1 Presence of aortocoronary bypass graft; Z98.890 Other specified postprocedural states; Z79.01 Long term (current) use of anticoagulants; Z80.8 Family history of malignant neoplasm of other organs or systems; Y83.2 Surgical operation with anastomosis, bypass or graft as the cause of abnormal reaction of the patient, or of later complication, without mention of misadventure at the time of the procedure
CPT/HCPCS: 36416; 82948; 97597; A6021; A6206; A6212

== ENCOUNTER 2018-02-15 09:27 | Day surgery (SDC) | payer MEDICAID ==
[2018-02-15] MEDS: LIDOcaine 2% 5ml jelly ONE (09:43)
== END 2018-02-15 10:00 | disposition home or self-care (01) ==
LOC: WOUND CARE 09:27
PROVIDERS: ATTEND Surgery
DX: T81.4XXD Infection following a procedure, subsequent encounter (principal); E11.622 Type 2 diabetes mellitus with other skin ulcer; L98.492 Non-pressure chronic ulcer of skin of other sites with fat layer exposed; E11.65 Type 2 diabetes mellitus with hyperglycemia; K29.50 Unspecified chronic gastritis without bleeding; K44.9 Diaphragmatic hernia without obstruction or gangrene; I25.10 Atherosclerotic heart disease of native coronary artery without angina pectoris; I10 Essential (primary) hypertension; I48.91 Unspecified atrial fibrillation; F17.200 Nicotine dependence, unspecified, uncomplicated; Z98.0 Intestinal bypass and anastomosis status; Z79.82 Long term (current) use of aspirin; Z79.899 Other long term (current) drug therapy; Z85.118 Personal history of other malignant neoplasm of bronchus and lung; Z95.1 Presence of aortocoronary bypass graft; Z98.890 Other specified postprocedural states; Z79.01 Long term (current) use of anticoagulants; Z80.8 Family history of malignant neoplasm of other organs or systems; Y83.2 Surgical operation with anastomosis, bypass or graft as the cause of abnormal reaction of the patient, or of later complication, without mention of misadventure at the time of the procedure
CPT/HCPCS: 36416; 82948; 97597; A6021; A6206; A6212

== ENCOUNTER 2018-02-22 10:30 | Day surgery (SDC) | payer MEDICAID ==
[2018-02-22] MEDS ORDERED: LIDOcaine 2% 5ml jelly ONE (11:16)
== END 2018-02-22 11:49 | disposition home or self-care (01) ==
LOC: WOUND CARE 10:30
PROVIDERS: ATTEND Surgery
DX: T81.4XXD Infection following a procedure, subsequent encounter (principal); E11.622 Type 2 diabetes mellitus with other skin ulcer; L98.492 Non-pressure chronic ulcer of skin of other sites with fat layer exposed; E11.65 Type 2 diabetes mellitus with hyperglycemia; K29.50 Unspecified chronic gastritis without bleeding; K44.9 Diaphragmatic hernia without obstruction or gangrene; I25.10 Atherosclerotic heart disease of native coronary artery without angina pectoris; I10 Essential (primary) hypertension; I48.91 Unspecified atrial fibrillation; F17.200 Nicotine dependence, unspecified, uncomplicated; Z98.0 Intestinal bypass and anastomosis status; Z79.82 Long term (current) use of aspirin; Z79.899 Other long term (current) drug therapy; Z85.118 Personal history of other malignant neoplasm of bronchus and lung; Z95.1 Presence of aortocoronary bypass graft; Z98.890 Other specified postprocedural states; Z79.01 Long term (current) use of anticoagulants; Z80.8 Family history of malignant neoplasm of other organs or systems; Y83.2 Surgical operation with anastomosis, bypass or graft as the cause of abnormal reaction of the patient, or of later complication, without mention of misadventure at the time of the procedure
CPT/HCPCS: 36416; 82948; 97597; A6021; A6206; A6212

== ENCOUNTER 2018-03-01 10:40 | Day surgery (SDC) | payer MEDICAID ==
[~2018-03-01 10:40] MED LIST changes: -ONDA4TAB9 PO
[2018-03-01] MEDS ORDERED: LIDOcaine 2% 5ml jelly ONE (11:53)
== END 2018-03-01 12:14 | disposition home or self-care (01) ==
LOC: WOUND CARE 10:40
PROVIDERS: ATTEND Surgery
DX: T81.89XD Other complications of procedures, not elsewhere classified, subsequent encounter (principal); E11.622 Type 2 diabetes mellitus with other skin ulcer; L98.492 Non-pressure chronic ulcer of skin of other sites with fat layer exposed; E11.65 Type 2 diabetes mellitus with hyperglycemia; K29.50 Unspecified chronic gastritis without bleeding; K44.9 Diaphragmatic hernia without obstruction or gangrene; I25.10 Atherosclerotic heart disease of native coronary artery without angina pectoris; I10 Essential (primary) hypertension; I48.91 Unspecified atrial fibrillation; F17.200 Nicotine dependence, unspecified, uncomplicated; Z98.0 Intestinal bypass and anastomosis status; Z79.82 Long term (current) use of aspirin; Z79.899 Other long term (current) drug therapy; Z85.118 Personal history of other malignant neoplasm of bronchus and lung; Z95.1 Presence of aortocoronary bypass graft; Z98.890 Other specified postprocedural states; Z79.01 Long term (current) use of anticoagulants; Z80.8 Family history of malignant neoplasm of other organs or systems; Y83.8 Other surgical procedures as the cause of abnormal reaction of the patient, or of later complication, without mention of misadventure at the time of the procedure
CPT/HCPCS: 36416; 82948; 97597; A6021

== ENCOUNTER 2023-04-03 15:32 | Inpatient (IN) | payer BC, MEDICAID ==
[~2023-04-03] VITALS: Ht 165.1 cm; Wt 78.4 kg
[~2023-04-03 15:32] MED LIST changes: +CLIN-97 PO; -CLIN300C85 PO; -EZET10TA14 PO; +EZET10TA6 PO; +LOP25T PO; -METO25TA6 PO; +SERT-434 PO; -SERT100T10 PO; +TIZA-189 PO; -TIZA2TAB4 PO
[2023-04-03 16:03] LABS: BASOPHILS # (AUTO) 0.1 X10'3 (0-0.2); EOSINOPHILS # (AUTO) 0.1 X10'3 (0-0.9); EOSINOPHILS % (AUTO) 1.3 % (0-6); HEMOGLOBIN 11.4 g/dl (12.0-16.0); LYMPHOCYTES # (AUTO) 1.5 X10'3 (1.1-4.8); MEAN CORPUSCULAR HEMOGLOBIN 32.3 PG (27.0-31.0); MEAN CORPUSCULAR HGB CONC 33.7 g/dL (33.0-36.5); MEAN CORPUSCULAR VOLUME 95.9 FL (78-98); MEAN PLATELET VOLUME 9.1 FL (7.4-10.4); MONOCYTES # (AUTO) 0.5 X10'3 (0-0.9); MONOCYTES % (AUTO) 5.7 % (2-12); NEUTROPHILS # (AUTO) 7.1 X10'3 (1.8-7.7); PLATELET COUNT 264 X10'3 (140-440); RED BLOOD COUNT 3.54 X10'6 (4.20-5.60); RED CELL DISTRIBUTION WIDTH 13.8 % (11.5-14.5); WHITE BLOOD COUNT 9.3 X10'3 (4.5-11.0)
[2023-04-03] MEDS ORDERED: ondansetron/PF 4mg/2ml inj IV ONE (16:10)
[2023-04-03] MEDS ORDERED: pantoprazole 40 MG vial IV ONE (16:10)
[2023-04-03] MEDS ORDERED: normal saline 1000ML IV soln IVB ONE ×2 (16:10→18:40)
[2023-04-03] MEDS ORDERED: pantoprazole 40MG/NS 100ML BAG 100 ML IV ONE (16:15)
[2023-04-03 16:19] LABS: ALANINE AMINOTRANSFERASE 14 U/L (12-78); ALBUMIN 3.1 G/DL (3.4-5.0); ALBUMIN/GLOBULIN RATIO 0.7 (1.1-1.5); ALKALINE PHOSPHATASE 80 IU/L (46-116); ANION GAP 12 (8-16); ASPARTATE AMINO TRANSFERASE 11 U/L (10-37); BILIRUBIN,TOTAL 0.3 MG/DL (0.1-1.0); BLOOD UREA NITROGEN 51 MG/DL (7-18); BUN/CREATININE RATIO 15.7 (10.0-20.0); CALCIUM 9.7 MG/DL (8.5-10.1); CHLORIDE 106 MMOL/L (99-107); CREATININE 3.25 MG/DL (0.40-0.90); GLUCOSE 156 MG/DL (70-104); LIPASE 68 U/L (73-393); POTASSIUM 4.4 MMOL/L (3.5-5.1); SODIUM 141 MMOL/L (135-145); TOTAL CARBON DIOXIDE 23.4 MMOL/L (24-32); TOTAL PROTEIN 7.8 G/DL (6.4-8.2); eGFR 14 ML/MIN
[2023-04-03] MEDS: morphine 2 MG/ML inj. syringe IV PRN ×5 (17:25→20:05)
[2023-04-03 18:09] LABS: URINE HCG NEGATIVE (NEG)
[2023-04-03 18:10] LABS: CLARITY,URINE CLEAR (Clear); COLOR,URINE YELLOW (Yellow); GLUCOSE, URINE NEGATIVE (Neg); KETONES,URINE NEGATIVE (Neg); LEUKOCYTE ESTERASE ,URINE NEGATIVE (Neg); NITRITES, URINE NEGATIVE (Neg); OCCULT BLOOD,URINE NEGATIVE (Neg); PH,URINE 5.5 (4.8-8.0); PROTEIN,URINE >=300 mg/dl (Neg); UROBILINOGEN,URINE 0.2 E.U/dL (0.2-1.0)
[2023-04-03 18:34] LABS: RBC,URINE 0-2 /HPF (0-2); UA COLLECTION TYPE CLN CATCH MIDSTREAM; WBC,URINE 0-4 /HPF (0-4)
[2023-04-03 18:35] LABS: BACTERIA,URINE FEW /HPF (Neg); MUCUS STRANDS FEW /LPF (Neg); SQUAMOUS EPITHELIAL CELL,UR MANY /LPF (FEW)
[2023-04-03] MEDS ORDERED: metroNIDAZOLE-Flagyl 500mg/NS 100 ML IV ONE (18:40)
[2023-04-03] MEDS ORDERED: levoFLOXACIN-Levaquin 500mg/D5 100 ML IV ONE (18:40)
[2023-04-03] MEDS ORDERED: METO25TA6 PO (19:50)
[2023-04-03] MEDS ORDERED: ATOR-2 PO (19:50)
[2023-04-03] MEDS ORDERED: ALLO100T PO (19:50)
[2023-04-03] MEDS ORDERED: CHOL20002 PO (19:50)
[2023-04-03] MEDS ORDERED: GABA-530 PO (19:50)
[2023-04-03] MEDS ORDERED: VALS1TAB76 PO (19:50)
[2023-04-03] MEDS ORDERED: LIRA0.6P2 SQ (19:50)
[2023-04-03] MEDS ORDERED: acetaminophen 325mg tablet PO PRN (20:55)
[2023-04-03] MEDS ORDERED: albuterol 2.5 MG/3 ML nebule NEB PRN (20:55)
[2023-04-03] MEDS ORDERED: DEXTROSE 15 GM of carb/4 tabs (each vial/BOTTLE has 4 tablets) PO PRN ×2 (20:55)
[2023-04-03] MEDS ORDERED: potassium Cl 40MEQ/1/2NS 520ml 520 ML IV PRN (20:55)
[2023-04-03] MEDS ORDERED: mag hydrox/Alum hydrox/simeth 30ml oral suspension PO PRN (20:55)
[2023-04-03] MEDS ORDERED: ipratropium/albuterol 3ml nebule NEB PRN (20:55)
[2023-04-03] MEDS ORDERED: dextrose 50%-water 50ml dispensing syringe IV PRN ×2 (20:55)
[2023-04-03] MEDS ORDERED: magnesium 4gm in 100ml NS 100 ML IV PRN (20:55)
[2023-04-03] MEDS ORDERED: MESSAGE TO PHARMACY PO ONE (20:55)
[2023-04-03] MEDS ORDERED: potassium Cl 20 mEq SR tablet PO PRN ×2 (20:55)
[2023-04-03] MEDS ORDERED: insulin Lispro (HumaLOG) vial - multi-dose SQ SCH (20:55)
[2023-04-03] MEDS ORDERED: glucagon, human recombinant 1mg kit SUBCUT PRN (20:55)
--- NOTE | 2023-04-03 21:34 | NUR ---
PT GIVEN FOOD PER CL LIQUID DIET.
--- NOTE | 2023-04-03 21:34 | NUR ---
PT PLACED ON HOSPITAL BED.
[2023-04-03] MEDS: normal saline 1000ml 1,000 ML IV SCH (21:50)
[2023-04-03] MEDS: insulin glargine (Lantus) pen - multi-dose SQ SCH (21:50)
[2023-04-03 22:54] VITALS: PULSE 63; RESP 16; O2SAT 94
[2023-04-04] MEDS ORDERED: HYDROmorphone 1 mg/ml syringe IV PRN
[2023-04-04] MEDS ORDERED: HYDROcodone/acetaminophen 5mg/325mg tablet PO PRN (00:05)
[2023-04-04] MEDS: ondansetron/PF 4mg/2ml inj IV PRN (00:17)
[2023-04-04] MEDS: HYDROmorphone inj. 0.5 MG/0.5 ML DISP.SYRIN IV PRN ×4 (00:17→16:15)
[2023-04-04] MEDS ORDERED: ACET325T64 PO (00:28)
[2023-04-04] MEDS: gabapentin 100mg capsule PO SCH ×2 (00:55→08:09)
[2023-04-04] MEDS: metoprolol tartrate 25mg tablet PO SCH ×3 (00:56→20:00)
--- NOTE | 2023-04-04 01:50 | NUR ---
gabapentin & lopressor to start in AM 04/[address] Villavicencio
[2023-04-04] MEDS: metroNIDAZOLE-Flagyl 500mg/NS 100 ML IV SCH ×3 (02:51→21:13)
[2023-04-04 03:20] LABS: BASOPHILS % (AUTO) 0.5 % (0-1); EOSINOPHILS # (AUTO) 0.2 X10'3 (0-0.9); EOSINOPHILS % (AUTO) 2.6 % (0-6); HEMATOCRIT 29.8 % (35.0-45.0); HEMOGLOBIN 9.9 g/dl (12.0-16.0); LYMPHOCYTES # (AUTO) 2.1 X10'3 (1.1-4.8); LYMPHOCYTES % (AUTO) 25.7 % (21-51); MEAN CORPUSCULAR HEMOGLOBIN 32.4 PG (27.0-31.0); MEAN CORPUSCULAR HGB CONC 33.3 g/dL (33.0-36.5); MEAN CORPUSCULAR VOLUME 97.5 FL (78-98); MEAN PLATELET VOLUME 9.3 FL (7.4-10.4); MONOCYTES # (AUTO) 0.8 X10'3 (0-0.9); MONOCYTES % (AUTO) 9.7 % (2-12); NEUTROPHILS % (AUTO) 61.5 % (42-75); PLATELET COUNT 209 X10'3 (140-440); RED BLOOD COUNT 3.06 X10'6 (4.20-5.60); RED CELL DISTRIBUTION WIDTH 13.6 % (11.5-14.5); WHITE BLOOD COUNT 8.2 X10'3 (4.5-11.0)
[2023-04-04] MEDS: normal saline 1000ml 1,000 ML IV SCH ×4 (03:34→23:35)
[2023-04-04 03:43] LABS: ALANINE AMINOTRANSFERASE 12 U/L (12-78); ALBUMIN 2.6 G/DL (3.4-5.0); ALBUMIN/GLOBULIN RATIO 0.7 (1.1-1.5); ALKALINE PHOSPHATASE 65 IU/L (46-116); ANION GAP 12 (8-16); ASPARTATE AMINO TRANSFERASE 11 U/L (10-37); BILIRUBIN,TOTAL 0.2 MG/DL (0.1-1.0); BLOOD UREA NITROGEN 43 MG/DL (7-18); BUN/CREATININE RATIO 15.2 (10.0-20.0); CALCIUM 8.8 MG/DL (8.5-10.1); CHLORIDE 111 MMOL/L (99-107); CREATININE 2.83 MG/DL (0.40-0.90); GLUCOSE 99 MG/DL (70-104); MAGNESIUM 2.2 MG/DL (1.5-2.4); SODIUM 143 MMOL/L (135-145); TOTAL CARBON DIOXIDE 19.7 MMOL/L (24-32); TOTAL PROTEIN 6.6 G/DL (6.4-8.2); eGFR 17 ML/MIN
--- NOTE | 2023-04-04 07:20 | NUR ---
PT BG 82. PT HAS POOR APPETITE AND NOT EATING WELL. RN PROVIDED JUICE AND NOTIFIED RECEIVING REED LAY.
[2023-04-04] MEDS ORDERED: allopurinol 100mg tablet PO SCH ×2 (08:00→16:28)
[2023-04-04] MEDS: LIRAGLUTIDE 0.6 MG/0.1 ML SQ SCH (08:00)
[2023-04-04] MEDS: K and/or MAG REPLACEMENT MC SCH ×2 (08:00→20:00)
[2023-04-04] MEDS: nicotine 21mg patch - 24 hr TD SCH (08:00)
[2023-04-04] MEDS: cholecalciferol (vitamin D3) 1,000 unit (25mcg) tablet PO SCH (08:08)
[2023-04-04] MEDS: docusate sod 100mg capsule PO SCH ×2 (08:08→20:41)
[2023-04-04] MEDS: aspirin 81mg, enteric-coated 1 TAB TABLET.DR PO SCH (08:09)
[2023-04-04] MEDS: HYDROcodone/acetaminophen 10/325mg tab PO PRN ×2 (08:09→23:18)
[2023-04-04] MEDS: atorvastatin 20mg tablet PO SCH (08:09)
[2023-04-04] MEDS: sertraline 50mg tablet PO SCH (08:09)
[2023-04-04] MEDS: heparin, porcine 5000 units/ml vial SQ SCH ×2 (08:10→20:45)
[2023-04-04 10:00] VITALS: BP 141/52; PULSE 63; RESP 14; TEMP 98.4; O2SAT 93
[2023-04-04 11:51] VITALS: RESP 16
[2023-04-04 15:35] VITALS: PULSE 72; RESP 16; O2SAT 91
--- NOTE | 2023-04-04 17:00 | NUR ---
I have reviewed and agree with interventions, assessments, and documentation by Kurtis Garibay LVN.
[2023-04-04 18:00] VITALS: BP 112/47; PULSE 53; RESP 16; TEMP 98.5; O2SAT 95
--- NOTE | 2023-04-04 18:00 | NUR ---
Patient in room ORTHO 4009. I have received report from IONA Hull and had the opportunity to ask questions and assume patient care.
--- NOTE | 2023-04-04 18:20 | NUR ---
Problems reprioritized. Patient report given, questions answered & plan of care reviewed with REED Vazquez.
[2023-04-04] MEDS: ciprofloxacin/D5W 200mg/100mL 100 ML IV SCH (20:32)
[2023-04-04] MEDS: insulin glargine (Lantus) pen - multi-dose SQ SCH (20:45)
[2023-04-04 20:51] VITALS: PULSE 63; RESP 18; O2SAT 92
[2023-04-04 22:00] VITALS: BP 107/61; PULSE 68; RESP 16; TEMP 99.2; O2SAT 91
[2023-04-05] VITALS (9 sets, daily range): BP systolic 98–164; BP diastolic 48–62; PULSE 49–71; RESP 16–18; TEMP 98–99.1; O2SAT 91–97
[2023-04-05] MEDS: normal saline 1000ml 1,000 ML IV SCH (01:56)
[2023-04-05] MEDS: metroNIDAZOLE-Flagyl 500mg/NS 100 ML IV SCH ×3 (02:46→19:30)
--- NOTE | 2023-04-05 06:15 | NUR ---
Problems reprioritized. Patient report given, questions answered & plan of care reviewed with IONA Hull.
--- NOTE | 2023-04-05 06:16 | NUR ---
Patient in room ORTHO 4009. I have received report from REED Vazquez and had the opportunity to ask questions and assume patient care.
[2023-04-05 06:22] LABS: BASOPHILS # (AUTO) 0.1 X10'3 (0-0.2); BASOPHILS % (AUTO) 0.9 % (0-1); EOSINOPHILS # (AUTO) 0.1 X10'3 (0-0.9); EOSINOPHILS % (AUTO) 1.7 % (0-6); HEMATOCRIT 26.8 % (35.0-45.0); HEMOGLOBIN 8.9 g/dl (12.0-16.0); LYMPHOCYTES # (AUTO) 1.5 X10'3 (1.1-4.8); LYMPHOCYTES % (AUTO) 18.7 % (21-51); MEAN CORPUSCULAR HEMOGLOBIN 32.3 PG (27.0-31.0); MEAN CORPUSCULAR HGB CONC 33.1 g/dL (33.0-36.5); MEAN CORPUSCULAR VOLUME 97.8 FL (78-98); MEAN PLATELET VOLUME 9.1 FL (7.4-10.4); MONOCYTES # (AUTO) 0.8 X10'3 (0-0.9); MONOCYTES % (AUTO) 9.7 % (2-12); NEUTROPHILS # (AUTO) 5.5 X10'3 (1.8-7.7); PLATELET COUNT 188 X10'3 (140-440); RED BLOOD COUNT 2.74 X10'6 (4.20-5.60); RED CELL DISTRIBUTION WIDTH 13.8 % (11.5-14.5); WHITE BLOOD COUNT 7.9 X10'3 (4.5-11.0)
[2023-04-05 06:33] LABS: ALANINE AMINOTRANSFERASE 11 U/L (12-78); ALBUMIN 2.3 G/DL (3.4-5.0); ALBUMIN/GLOBULIN RATIO 0.6 (1.1-1.5); ALKALINE PHOSPHATASE 64 IU/L (46-116); ANION GAP 10 (8-16); ASPARTATE AMINO TRANSFERASE 16 U/L (10-37); BILIRUBIN,TOTAL 0.2 MG/DL (0.1-1.0); BLOOD UREA NITROGEN 37 MG/DL (7-18); BUN/CREATININE RATIO 11.7 (10.0-20.0); CALCIUM 8.2 MG/DL (8.5-10.1); CHLORIDE 110 MMOL/L (99-107); CREATININE 3.17 MG/DL (0.40-0.90); GLUCOSE 102 MG/DL (70-104); MAGNESIUM 1.7 MG/DL (1.5-2.4); POTASSIUM 4.4 MMOL/L (3.5-5.1); SODIUM 139 MMOL/L (135-145); TOTAL PROTEIN 5.9 G/DL (6.4-8.2); eGFR 15 ML/MIN
[2023-04-05] MEDS: LIRAGLUTIDE 0.6 MG/0.1 ML SQ SCH (08:00)
[2023-04-05] MEDS: metoprolol tartrate 25mg tablet PO SCH ×2 (08:00→21:13)
[2023-04-05] MEDS: nicotine 21mg patch - 24 hr TD SCH (08:00)
[2023-04-05] MEDS: HYDROcodone/acetaminophen 10/325mg tab PO PRN ×2 (08:12→13:51)
[2023-04-05] MEDS: cholecalciferol (vitamin D3) 1,000 unit (25mcg) tablet PO SCH (08:13)
[2023-04-05] MEDS: docusate sod 100mg capsule PO SCH ×2 (08:13→21:14)
[2023-04-05] MEDS: atorvastatin 20mg tablet PO SCH (08:13)
[2023-04-05] MEDS: gabapentin 100mg capsule PO SCH (08:13)
[2023-04-05] MEDS: sertraline 50mg tablet PO SCH (08:13)
[2023-04-05] MEDS: aspirin 81mg, enteric-coated 1 TAB TABLET.DR PO SCH (08:13)
[2023-04-05] MEDS: heparin, porcine 5000 units/ml vial SQ SCH ×2 (08:17→21:13)
[2023-04-05] MEDS: K and/or MAG REPLACEMENT MC SCH ×2 (08:28→20:59)
[2023-04-05] MEDS: sodium bicarbonate (8.4%) inj. 100 MEQ in dextrose 5%-water 1,000 ML IV SCH (09:14)
[2023-04-05] MEDS: HYDROmorphone inj. 0.5 MG/0.5 ML DISP.SYRIN IV PRN ×2 (17:18→21:10)
--- NOTE | 2023-04-05 18:00 | NUR ---
I have reviewed and agree with the interventions, assessments, and documentation by Kurtis Garibay LVN.
--- NOTE | 2023-04-05 18:30 | NUR ---
Problems reprioritized. Patient report given, questions answered & plan of care reviewed with REED Martinez.
[2023-04-05] MEDS: insulin glargine (Lantus) pen - multi-dose SQ SCH (21:00)
[2023-04-05] MEDS: ciprofloxacin/D5W 200mg/100mL 100 ML IV SCH (21:13)
[2023-04-06] VITALS (8 sets, daily range): BP systolic 119–168; BP diastolic 45–55; PULSE 50–72; RESP 16–18; TEMP 97.6–98.9; O2SAT 92–99
[2023-04-06] MEDS: sodium bicarbonate (8.4%) inj. 100 MEQ in dextrose 5%-water 1,000 ML IV SCH ×3 (00:43→19:30)
[2023-04-06] MEDS: HYDROmorphone inj. 0.5 MG/0.5 ML DISP.SYRIN IV PRN ×2 (00:55→05:12)
[2023-04-06] MEDS: metroNIDAZOLE-Flagyl 500mg/NS 100 ML IV SCH ×3 (03:11→19:29)
[2023-04-06 06:12] LABS: BASOPHILS % (AUTO) 0.6 % (0-1); EOSINOPHILS # (AUTO) 0.2 X10'3 (0-0.9); EOSINOPHILS % (AUTO) 2.3 % (0-6); HEMATOCRIT 26.3 % (35.0-45.0); HEMOGLOBIN 8.9 g/dl (12.0-16.0); LYMPHOCYTES # (AUTO) 1.3 X10'3 (1.1-4.8); LYMPHOCYTES % (AUTO) 18.5 % (21-51); MEAN CORPUSCULAR HEMOGLOBIN 32.5 PG (27.0-31.0); MEAN CORPUSCULAR HGB CONC 33.7 g/dL (33.0-36.5); MEAN CORPUSCULAR VOLUME 96.4 FL (78-98); MEAN PLATELET VOLUME 9.4 FL (7.4-10.4); MONOCYTES # (AUTO) 0.7 X10'3 (0-0.9); MONOCYTES % (AUTO) 10.2 % (2-12); NEUTROPHILS # (AUTO) 4.8 X10'3 (1.8-7.7); NEUTROPHILS % (AUTO) 68.4 % (42-75); PLATELET COUNT 188 X10'3 (140-440); RED BLOOD COUNT 2.73 X10'6 (4.20-5.60); RED CELL DISTRIBUTION WIDTH 13.5 % (11.5-14.5)
--- NOTE | 2023-04-06 06:16 | NUR ---
Patient in room ORTHO 4009. I have received report from REED Martinez and had the opportunity to ask questions and assume patient care.
[2023-04-06 06:20] LABS: ALANINE AMINOTRANSFERASE 10 U/L (12-78); ALBUMIN 2.4 G/DL (3.4-5.0); ALBUMIN/GLOBULIN RATIO 0.7 (1.1-1.5); ALKALINE PHOSPHATASE 66 IU/L (46-116); ANION GAP 9 (8-16); ASPARTATE AMINO TRANSFERASE 17 U/L (10-37); BILIRUBIN,TOTAL 0.3 MG/DL (0.1-1.0); BLOOD UREA NITROGEN 34 MG/DL (7-18); BUN/CREATININE RATIO 11.5 (10.0-20.0); CALCIUM 8.6 MG/DL (8.5-10.1); CHLORIDE 108 MMOL/L (99-107); CREATININE 2.95 MG/DL (0.40-0.90); GLUCOSE 130 MG/DL (70-104); MAGNESIUM 1.4 MG/DL (1.5-2.4); SODIUM 139 MMOL/L (135-145); TOTAL CARBON DIOXIDE 22.5 MMOL/L (24-32); TOTAL PROTEIN 5.9 G/DL (6.4-8.2); eGFR 16 ML/MIN
[2023-04-06] MEDS: nicotine 21mg patch - 24 hr TD SCH (08:00)
[2023-04-06] MEDS: K and/or MAG REPLACEMENT MC SCH ×2 (08:00→20:00)
[2023-04-06] MEDS: LIRAGLUTIDE 0.6 MG/0.1 ML SQ SCH (08:00)
[2023-04-06] MEDS: metoprolol tartrate 25mg tablet PO SCH ×2 (08:00→19:43)
[2023-04-06] MEDS: HYDROcodone/acetaminophen 10/325mg tab PO PRN ×3 (08:20→19:42)
[2023-04-06] MEDS: cholecalciferol (vitamin D3) 1,000 unit (25mcg) tablet PO SCH (08:21)
[2023-04-06] MEDS: atorvastatin 20mg tablet PO SCH (08:21)
[2023-04-06] MEDS: aspirin 81mg, enteric-coated 1 TAB TABLET.DR PO SCH (08:21)
[2023-04-06] MEDS: docusate sod 100mg capsule PO SCH ×2 (08:21→19:42)
[2023-04-06] MEDS: gabapentin 100mg capsule PO SCH (08:21)
[2023-04-06] MEDS: heparin, porcine 5000 units/ml vial SQ SCH ×2 (08:22→19:48)
[2023-04-06] MEDS: sertraline 50mg tablet PO SCH (08:22)
[2023-04-06] MEDS ORDERED: bisacodyl 10mg suppository rectal RC STA (11:27)
[2023-04-06] MEDS ORDERED: lactulose 20gm/30ml cup PO PRN (11:30)
[2023-04-06] MEDS ORDERED: magnesium hydroxide 30ml (MOM) UD suspension PO PRN (11:30)
[2023-04-06] MEDS ORDERED: bisacodyl 10mg suppository rectal RC PRN (11:30)
--- NOTE | 2023-04-06 18:00 | NUR ---
I have reviewed and agree with interventions, assessments, and documentation by Kurtis Garibay LVN.
--- NOTE | 2023-04-06 18:43 | NUR ---
Problems reprioritized. Patient report given, questions answered & plan of care reviewed with IONA Milan.
[2023-04-06] MEDS: insulin glargine (Lantus) pen - multi-dose SQ SCH (21:00)
[2023-04-06] MEDS: ciprofloxacin/D5W 200mg/100mL 100 ML IV SCH (21:38)
--- NOTE | 2023-04-06 22:35 | NUR ---
Patient in room ORTHO 4009. I have received report from julio c baker and had the opportunity to ask questions and assume patient care.
--- NOTE | 2023-04-06 23:29 | NUR ---
MANAGER MEAT documentation: I have reviewed and agree with all interventions, assessments performed and documented by Kayli MONSON .
--- NOTE | 2023-04-07 02:14 | NUR ---
Problems reprioritized. Patient report given, questions answered & plan of care reviewed with jonny osborne.
[2023-04-07] MEDS: metroNIDAZOLE-Flagyl 500mg/NS 100 ML IV SCH ×2 (03:03→11:04)
[2023-04-07] MEDS ORDERED: magnesium Cl slow-release 64mg tablet PO PRN (03:05)
[2023-04-07 06:00] VITALS: BP 190/66; PULSE 64; RESP 14; TEMP 98.1; O2SAT 92
--- NOTE | 2023-04-07 06:38 | NUR ---
Report to Charlotte Levine.
[2023-04-07 06:48] LABS: BASOPHILS # (AUTO) 0.1 X10'3 (0-0.2); BASOPHILS % (AUTO) 0.8 % (0-1); EOSINOPHILS # (AUTO) 0.2 X10'3 (0-0.9); EOSINOPHILS % (AUTO) 3.1 % (0-6); HEMATOCRIT 26.6 % (35.0-45.0); LYMPHOCYTES % (AUTO) 15.8 % (21-51); MEAN CORPUSCULAR HEMOGLOBIN 32.3 PG (27.0-31.0); MEAN CORPUSCULAR HGB CONC 33.9 g/dL (33.0-36.5); MEAN CORPUSCULAR VOLUME 95.4 FL (78-98); MEAN PLATELET VOLUME 8.9 FL (7.4-10.4); MONOCYTES # (AUTO) 0.6 X10'3 (0-0.9); MONOCYTES % (AUTO) 9.4 % (2-12); NEUTROPHILS # (AUTO) 4.3 X10'3 (1.8-7.7); NEUTROPHILS % (AUTO) 70.9 % (42-75); PLATELET COUNT 199 X10'3 (140-440); RED BLOOD COUNT 2.79 X10'6 (4.20-5.60); RED CELL DISTRIBUTION WIDTH 13.5 % (11.5-14.5); WHITE BLOOD COUNT 6.1 X10'3 (4.5-11.0)
[2023-04-07 07:08] LABS: ALANINE AMINOTRANSFERASE 10 U/L (12-78); ALBUMIN 2.3 G/DL (3.4-5.0); ALBUMIN/GLOBULIN RATIO 0.6 (1.1-1.5); ALKALINE PHOSPHATASE 60 IU/L (46-116); ANION GAP 7 (8-16); ASPARTATE AMINO TRANSFERASE 15 U/L (10-37); BILIRUBIN,TOTAL 0.3 MG/DL (0.1-1.0); BLOOD UREA NITROGEN 28 MG/DL (7-18); BUN/CREATININE RATIO 9.9 (10.0-20.0); CALCIUM 8.8 MG/DL (8.5-10.1); CHLORIDE 108 MMOL/L (99-107); CREATININE 2.84 MG/DL (0.40-0.90); GLUCOSE 137 MG/DL (70-104); MAGNESIUM 1.3 MG/DL (1.5-2.4); POTASSIUM 3.6 MMOL/L (3.5-5.1); SODIUM 141 MMOL/L (135-145); TOTAL CARBON DIOXIDE 26.5 MMOL/L (24-32); TOTAL PROTEIN 5.9 G/DL (6.4-8.2); eGFR 17 ML/MIN
[2023-04-07 08:00] VITALS: RESP 16; O2SAT 92
[2023-04-07] MEDS: K and/or MAG REPLACEMENT MC SCH (08:00)
[2023-04-07] MEDS: nicotine 21mg patch - 24 hr TD SCH (08:00)
[2023-04-07] MEDS: LIRAGLUTIDE 0.6 MG/0.1 ML SQ SCH (08:00)
[2023-04-07] MEDS ORDERED: magnesium Cl slow-release 64mg tablet PO SCH (08:00)
[2023-04-07] MEDS: gabapentin 100mg capsule PO SCH (08:53)
[2023-04-07] MEDS: sertraline 50mg tablet PO SCH (08:53)
[2023-04-07] MEDS: atorvastatin 20mg tablet PO SCH (08:53)
[2023-04-07] MEDS: cholecalciferol (vitamin D3) 1,000 unit (25mcg) tablet PO SCH (08:54)
[2023-04-07] MEDS: docusate sod 100mg capsule PO SCH (08:54)
[2023-04-07] MEDS: metoprolol tartrate 25mg tablet PO SCH (08:54)
[2023-04-07] MEDS: heparin, porcine 5000 units/ml vial SQ SCH (09:01)
[2023-04-07] MEDS: HYDROcodone/acetaminophen 10/325mg tab PO PRN (09:01)
[2023-04-07] MEDS: ondansetron/PF 4mg/2ml inj IV PRN (09:14)
[2023-04-07 10:00] VITALS: BP 186/67; PULSE 56; RESP 16; TEMP 98.2; O2SAT 92
[2023-04-07] MEDS ORDERED: aspirin 81mg, enteric-coated 1 TAB TABLET.DR PO SCH (10:08)
[2023-04-07] MEDS ORDERED: magnesium 4gm in 100ml NS 100 ML IV ONE (10:25)
[2023-04-07] MEDS ORDERED: CIPR-202 PO (11:08)
[2023-04-07] MEDS ORDERED: VALS160T30 PO (11:08)
[2023-04-07] MEDS ORDERED: METR-349 PO (11:08)
[2023-04-07] MEDS ORDERED: NICO-687 TD (11:08)
--- NOTE | 2023-04-07 11:08 | NUR ---
O2 Sat at rest on room air 84% If below 89%: Recovery O2 Sat at rest on LPM: 2L via nasal cannula = 92% No further documentation is necessary. If O2 Sat did not drop below 89% on room air,ambulate patient on room air. O2 Sat while ambulating on room air:___% Recovery O2 Sat while ambulating on ___LPM:___% No further documentation is necessary. If patient does not drop below 89% while ambulating, he/she does not qualify for home O2.
[2023-04-07 11:11] VITALS: PULSE 56; RESP 16; O2SAT 93
[2023-04-07] MEDS ORDERED: SACC250C PO (15:40)
[2023-04-07] MEDS ORDERED: HYDR-3972 PO (15:40)
--- NOTE | 2023-04-07 16:29 | NUR ---
Pt discharged in stable condition to home with significant other. IV removed tip intact no complications, belongings sent with pt. pt educated on discharge instructions and follow up.
[2023-04-07] MEDS ORDERED: metroNIDAZOLE 500mg tablet PO SCH (19:00)
[2023-04-07] MEDS ORDERED: ciprofloxacin 250mg tablet PO SCH (20:00)
== END 2023-04-07 15:30 | disposition home or self-care (01) | DRG 392 ==
LOC: ER 15:32 → ED HOLD 21:08 → ORTHO 4S 04-04 07:40
PROVIDERS: ADMIT Family Medicine; ATTEND Family Medicine
DX: K57.32 Diverticulitis of large intestine without perforation or abscess without bleeding (principal); A09 Infectious gastroenteritis and colitis, unspecified; N17.9 Acute kidney failure, unspecified; E11.22 Type 2 diabetes mellitus with diabetic chronic kidney disease; E78.00 Pure hypercholesterolemia, unspecified; F17.210 Nicotine dependence, cigarettes, uncomplicated; I12.9 Hypertensive chronic kidney disease with stage 1 through stage 4 chronic kidney disease, or unspecified chronic kidney disease; I25.10 Atherosclerotic heart disease of native coronary artery without angina pectoris; D64.9 Anemia, unspecified; N18.30 Chronic kidney disease, stage 3 unspecified; Z79.84 Long term (current) use of oral hypoglycemic drugs; Z79.899 Other long term (current) drug therapy; Z80.1 Family history of malignant neoplasm of trachea, bronchus and lung; Z82.3 Family history of stroke; Z82.49 Family history of ischemic heart disease and other diseases of the circulatory system; Z88.1 Allergy status to other antibiotic agents; Z95.1 Presence of aortocoronary bypass graft; Z79.82 Long term (current) use of aspirin; Z95.5 Presence of coronary angioplasty implant and graft; Z71.6 Tobacco abuse counseling
CPT/HCPCS: 36415; 71045; 74018; 74176; 80053; 81001; 81025; 82948; 83605; 83690; 83735; 85025; 94760; 97161; 97530; 99285; A4615; A6258; C9113; G0378; J0744; J1170; J1644; J1815; J1956; J2270; J2405; J3475; J3490; J7030; J7070

== ENCOUNTER 2024-03-24 14:12 | Emergency (ER) | payer BC ==
[~2024-03-24] VITALS: Ht 165.1 cm; Wt 71.4 kg
[~2024-03-24 14:12] MED LIST changes: +ACET325T64 PO; +ALLO100T PO; +ATOR-2 PO; -ATOR10TA PO; +CHOL20002 PO; -CLIN-97 PO; -COL100C PO; -EZET10TA6 PO; +GABA-530 PO; -GABA-532 PO; +LIRA0.6P2 SQ; -LOP25T PO; -METF-436 PO; +METO25TA6 PO; +METR-349 PO; -NAPR-56 PO; +NICO-687 TD; +SACC250C PO; -TIZA-189 PO; +VALS160T30 PO
[2024-03-24 15:29] LABS: BASOPHILS # (AUTO) 0.1 X10'3 (0-0.2); BASOPHILS % (AUTO) 0.9 % (0-1); EOSINOPHILS # (AUTO) 0.2 X10'3 (0-0.9); EOSINOPHILS % (AUTO) 2.4 % (0-6); HEMOGLOBIN 12.3 g/dl (12.0-16.0); LYMPHOCYTES # (AUTO) 1.2 X10'3 (1.1-4.8); LYMPHOCYTES % (AUTO) 16.8 % (21-51); MEAN CORPUSCULAR HEMOGLOBIN 32.4 PG (27.0-31.0); MEAN CORPUSCULAR HGB CONC 33.3 g/dL (33.0-36.5); MEAN CORPUSCULAR VOLUME 97.3 FL (78-98); MEAN PLATELET VOLUME 9.4 FL (7.4-10.4); MONOCYTES # (AUTO) 0.5 X10'3 (0-0.9); MONOCYTES % (AUTO) 7.5 % (2-12); NEUTROPHILS # (AUTO) 5.1 X10'3 (1.8-7.7); NEUTROPHILS % (AUTO) 72.4 % (42-75); PLATELET COUNT 245 X10'3 (140-440); RED BLOOD COUNT 3.81 X10'6 (4.20-5.60); RED CELL DISTRIBUTION WIDTH 13.5 % (11.5-14.5); WHITE BLOOD COUNT 7.1 X10'3 (4.5-11.0)
[2024-03-24] MEDS: normal saline 1000ML IV soln IV ONE (15:32)
[2024-03-24 15:48] LABS: APTT 25 SECONDS (22-32); INR 1.1 INR; PROTHROMBIN TIME 11.4 SECONDS (9.0-12.0)
[2024-03-24 16:11] LABS: ALANINE AMINOTRANSFERASE 20 U/L (12-78); ALBUMIN 3.8 G/DL (3.4-5.0); ALBUMIN/GLOBULIN RATIO 0.9 (1.1-1.5); ALKALINE PHOSPHATASE 69 IU/L (46-116); ANION GAP 15 (8-16); ASPARTATE AMINO TRANSFERASE 21 U/L (10-37); BILIRUBIN,DIRECT 0.1 MG/DL (0-0.3); BILIRUBIN,TOTAL 0.5 MG/DL (0.1-1.0); BLOOD UREA NITROGEN 69 MG/DL (7-18); BUN/CREATININE RATIO 11.5 (10.0-20.0); CALCIUM 9.6 MG/DL (8.5-10.1); CHLORIDE 103 MMOL/L (99-107); GLUCOSE 146 MG/DL (70-104); POTASSIUM 4.4 MMOL/L (3.5-5.1); SODIUM 139 MMOL/L (135-145); TOTAL CARBON DIOXIDE 21.2 MMOL/L (24-32); TOTAL PROTEIN 8.2 G/DL (6.4-8.2); eCRCL 9 ML/MIN; eGFR 7 ML/MIN
[2024-03-24] MEDS: ondansetron/PF 4mg/2ml inj IV ONE (16:24)
[2024-03-24] MEDS: diatr meglu/diatrizoate 30ml oral sol.-(3 dose) bottle PO SCH (16:24)
[2024-03-24 17:54] LABS: BILIRUBIN,URINE NEGATIVE (Neg); CLARITY,URINE CLEAR (Clear); COLOR,URINE YELLOW (Yellow); GLUCOSE, URINE NEGATIVE (Neg); KETONES,URINE NEGATIVE (Neg); LEUKOCYTE ESTERASE ,URINE NEGATIVE (Neg); NITRITES, URINE NEGATIVE (Neg); OCCULT BLOOD,URINE NEGATIVE (Neg); PROTEIN,URINE 100 mg/dl (Neg); UROBILINOGEN,URINE 0.2 E.U/dL (0.2-1.0)
[2024-03-24 17:57] LABS: UA COLLECTION TYPE CLN CATCH MIDSTREAM
[2024-03-24 18:01] LABS: BACTERIA,URINE FEW /HPF (Neg); FINE GRANULAR CAST 0-3 /LPF (NEGATIVE); HYALINE CASTS 0-3 /LPF (NEGATIVE); MUCUS STRANDS NONE SEEN /LPF (Neg); RBC,URINE NONE SEEN /HPF (0-2); SQUAMOUS EPITHELIAL CELL,UR FEW /LPF (FEW); WBC,URINE 0-4 /HPF (0-4)
[2024-03-24] MEDS ORDERED: ONDA-245 PO (19:43)
[2024-03-24 19:53] VITALS: BP 114/64; PULSE 70; RESP 18; TEMP 98.3; O2SAT 99
== END 2024-03-24 19:55 | disposition home or self-care (01) ==
LOC: ER 14:13
DX: E86.0 Dehydration (principal); I12.9 Hypertensive chronic kidney disease with stage 1 through stage 4 chronic kidney disease, or unspecified chronic kidney disease; E11.22 Type 2 diabetes mellitus with diabetic chronic kidney disease; N18.9 Chronic kidney disease, unspecified; I25.10 Atherosclerotic heart disease of native coronary artery without angina pectoris; R10.11 Right upper quadrant pain; R10.31 Right lower quadrant pain; R10.32 Left lower quadrant pain; Z88.1 Allergy status to other antibiotic agents; Z79.899 Other long term (current) drug therapy; Z79.1 Long term (current) use of non-steroidal anti-inflammatories (NSAID); Z79.82 Long term (current) use of aspirin
CPT/HCPCS: 36415; 71045; 74176; 80048; 80076; 81001; 83605; 84145; 85025; 85610; 85730; 87040; 93005; 96374; 99285; J2405; J7030; Q9963; 96361

== ENCOUNTER 2024-08-09 09:19 | Inpatient (IN) | payer BC ==
[~2024-08-09] VITALS: Ht 165.1 cm; Wt 74.6 kg
[~2024-08-09 09:19] MED LIST changes: +ONDA-245 PO
[2024-08-09 10:29] LABS: BASOPHILS # (AUTO) 0.1 X10'3 (0-0.2); BASOPHILS % (AUTO) 1.1 % (0-1); EOSINOPHILS # (AUTO) 0.3 X10'3 (0-0.9); EOSINOPHILS % (AUTO) 3.7 % (0-6); HEMATOCRIT 29.2 % (35.0-45.0); HEMOGLOBIN 9.8 g/dl (12.0-16.0); LYMPHOCYTES # (AUTO) 1.4 X10'3 (1.1-4.8); LYMPHOCYTES % (AUTO) 15.3 % (21-51); MEAN CORPUSCULAR HGB CONC 33.6 g/dL (33.0-36.5); MEAN CORPUSCULAR VOLUME 98.3 FL (78-98); MEAN PLATELET VOLUME 9.3 FL (7.4-10.4); MONOCYTES # (AUTO) 0.7 X10'3 (0-0.9); MONOCYTES % (AUTO) 7.5 % (2-12); NEUTROPHILS # (AUTO) 6.8 X10'3 (1.8-7.7); NEUTROPHILS % (AUTO) 72.4 % (42-75); PLATELET COUNT 259 X10'3 (140-440); RED BLOOD COUNT 2.97 X10'6 (4.20-5.60); RED CELL DISTRIBUTION WIDTH 14.9 % (11.5-14.5); WHITE BLOOD COUNT 9.4 X10'3 (4.5-11.0)
[2024-08-09 10:44] LABS: ALANINE AMINOTRANSFERASE 18 U/L (12-78); ALBUMIN 3.1 G/DL (3.4-5.0); ALBUMIN/GLOBULIN RATIO 0.7 (1.1-1.5); ALKALINE PHOSPHATASE 92 IU/L (46-116); ANION GAP 8 (8-16); ASPARTATE AMINO TRANSFERASE 16 U/L (10-37); BILIRUBIN,TOTAL 0.4 MG/DL (0.1-1.0); BLOOD UREA NITROGEN 45 MG/DL (7-18); BUN/CREATININE RATIO 9.2 (10.0-20.0); CALCIUM 8.5 MG/DL (8.5-10.1); CHLORIDE 110 MMOL/L (99-107); CREATININE 4.91 MG/DL (0.40-0.90); GLUCOSE 130 MG/DL (70-104); POTASSIUM 5.3 MMOL/L (3.5-5.1); SODIUM 142 MMOL/L (135-145); TOTAL CARBON DIOXIDE 23.6 MMOL/L (24-32); TOTAL PROTEIN 7.4 G/DL (6.4-8.2); eCRCL 10 ML/MIN; eGFR 9 ML/MIN
[2024-08-09 10:52] LABS: PRO BRAIN NATRIURETIC PEPTIDE 27282 PG/ML (0-125)
[2024-08-09 11:51] LABS: APTT 25 SECONDS (22-32); PROTHROMBIN TIME 10.4 SECONDS (9.0-12.0)
[2024-08-09] MEDS: aspirin 81mg tab.chew PO ONE (12:17)
[2024-08-09] MEDS: nitroGLYCERIN 0.4mg/hour patch TD ONE (12:17)
[2024-08-09 12:39] LABS: MAGNESIUM 2.4 MG/DL (1.5-2.4)
[2024-08-09] MEDS ORDERED: magnesium sulf-water 4G/100mL 100 ML IV PRN (12:45)
[2024-08-09] MEDS ORDERED: magnesium Cl slow-release 64mg tablet PO PRN (12:45)
[2024-08-09] MEDS: normal saline 1000ml 1,000 ML IV SCH (12:45)
[2024-08-09] MEDS ORDERED: potassium Cl 40MEQ/1/2NS 520ml 520 ML IV PRN (12:45)
[2024-08-09] MEDS ORDERED: potassium Cl 20 mEq SR tablet PO PRN ×2 (12:45)
[2024-08-09] MEDS ORDERED: magnesium sulf-water 2g/50mL 50 ML IV PRN (12:45)
[2024-08-09] MEDS: heparin 10,000 units/1 ML INJ IV ONE (13:53)
[2024-08-09] MEDS: heparin 25,000 UNIT/250ml bag 250 ML IV PRN (13:57)
[2024-08-09] MEDS: MESSAGE TO NURSING IV ONE ×3 (14:09→21:10)
[2024-08-09] MEDS ORDERED: nitroGLYCERIN 0.4mg SUBLingual tab SL PRN ×2 (17:05→19:45)
[2024-08-09 18:14] LABS: D-DIMER 1.03 MG/L FEU (0-0.50)
[2024-08-09] MEDS ORDERED: regadenoson 0.4mg/5ml syringe IV PRN (19:45)
[2024-08-09] MEDS ORDERED: aminophylline 250mg/10ml inj. IV PRN (19:45)
[2024-08-09] MEDS ORDERED: metoprolol tartrate 1mg/ml inj IV PRN (19:45)
[2024-08-09] MEDS ORDERED: heparin, porcine 5000 units/ml vial SQ SCH (20:00)
[2024-08-09] MEDS: K and/or MAG REPLACEMENT MC SCH (20:00)
[2024-08-09] MEDS ORDERED: HEPARIN DRIP-CARDIAC**PHARMACIST-TO-DOSE IV SCH (20:55)
[2024-08-09] MEDS: HEPARIN DRIP-CARDIAC**PHARMACIST-TO-DOSE IV ONE (20:55)
[2024-08-09] MEDS: heparin 10,000 units/1 ML INJ IV PRN (21:13)
[2024-08-09 21:22] LABS: CHOL/HDL RATIO 3.6 (0.00-4.99); CHOLESTEROL 162 MG/DL (0-200); HDL CHOLESTEROL 45 MG/DL (35-60); LDL CHOLESTEROL 99 MG/DL (50-100); TRIGLYCERIDES 112 MG/DL (20-135)
[2024-08-09] MEDS: docusate sod 100mg capsule PO SCH (22:05)
[2024-08-09] MEDS: metoprolol tartrate 25mg tablet PO SCH (22:06)
[2024-08-10] VITALS (13 sets, daily range): BP systolic 90–168; BP diastolic 46–77; PULSE 57–110; RESP 16–19; TEMP 97.4–98.2; O2SAT 96–100
[2024-08-10] MEDS: heparin 25,000 UNIT/250ml bag 250 ML IV PRN ×2 (01:36→17:36)
[2024-08-10 03:42] LABS: BASOPHILS # (AUTO) 0.1 X10'3 (0-0.2); BASOPHILS % (AUTO) 1.4 % (0-1); EOSINOPHILS # (AUTO) 0.4 X10'3 (0-0.9); EOSINOPHILS % (AUTO) 4.7 % (0-6); LYMPHOCYTES # (AUTO) 2.5 X10'3 (1.1-4.8); LYMPHOCYTES % (AUTO) 29.1 % (21-51); MEAN CORPUSCULAR HEMOGLOBIN 33.6 PG (27.0-31.0); MEAN CORPUSCULAR HGB CONC 34.7 g/dL (33.0-36.5); MEAN CORPUSCULAR VOLUME 96.7 FL (78-98); MEAN PLATELET VOLUME 9.5 FL (7.4-10.4); MONOCYTES # (AUTO) 0.8 X10'3 (0-0.9); MONOCYTES % (AUTO) 8.9 % (2-12); NEUTROPHILS # (AUTO) 4.8 X10'3 (1.8-7.7); NEUTROPHILS % (AUTO) 55.9 % (42-75); PLATELET COUNT 236 X10'3 (140-440); RED BLOOD COUNT 2.69 X10'6 (4.20-5.60); RED CELL DISTRIBUTION WIDTH 14.7 % (11.5-14.5); WHITE BLOOD COUNT 8.5 X10'3 (4.5-11.0)
[2024-08-10 04:00] LABS: ALANINE AMINOTRANSFERASE 12 U/L (12-78); ALBUMIN/GLOBULIN RATIO 0.8 (1.1-1.5); ALKALINE PHOSPHATASE 88 IU/L (46-116); ANION GAP 11 (8-16); ASPARTATE AMINO TRANSFERASE 15 U/L (10-37); BILIRUBIN,TOTAL 0.4 MG/DL (0.1-1.0); BLOOD UREA NITROGEN 47 MG/DL (7-18); BUN/CREATININE RATIO 10.2 (10.0-20.0); CALCIUM 8.5 MG/DL (8.5-10.1); CHLORIDE 111 MMOL/L (99-107); CREATININE 4.62 MG/DL (0.40-0.90); GLUCOSE 110 MG/DL (70-104); MAGNESIUM 2.3 MG/DL (1.5-2.4); POTASSIUM 4.9 MMOL/L (3.5-5.1); SODIUM 141 MMOL/L (135-145); TOTAL CARBON DIOXIDE 19.5 MMOL/L (24-32); eCRCL 11 ML/MIN; eGFR 10 ML/MIN
[2024-08-10] MEDS: MESSAGE TO NURSING IV ONE ×3 (04:15→20:05)
[2024-08-10] MEDS ORDERED: ipratropium/albuterol 3ml nebule NEB PRN (07:45)
[2024-08-10] MEDS: azithromycin/NS 500mg/250ml 250 ML IV ONE ×2 (08:42→20:41)
[2024-08-10] MEDS: CefTRIAXone/D5W-Rocephin 1gm 50 ML IV SCH (08:42)
[2024-08-10] MEDS: atorvastatin 20mg tablet PO SCH (08:42)
[2024-08-10] MEDS: aspirin 81mg, enteric-coated 1 TAB TABLET.DR PO SCH (08:43)
[2024-08-10] MEDS: methylPREDNISolone sod succ/PF 40mg inj. IV SCH (08:51)
[2024-08-10] MEDS: ringers solution, lacted 1,000 ML IV SCH (12:25)
[2024-08-10] MEDS: losartan 50mg tablet PO SCH (12:25)
[2024-08-10 12:31] LABS: URINE AMPHETAMINE SCREEN NEGATIVE (Neg); URINE BARBITUATE SCREEN NEGATIVE (Neg); URINE BENZODIAZEPINES SCREEN NEGATIVE (Neg); URINE CANNABINOID SCREEN NEGATIVE (Neg); URINE COCAINE SCREEN NEGATIVE (Neg); URINE METHADONE SCREEN NEGATIVE (Neg); URINE OPIATE SCREEN NEGATIVE (Neg); URINE PHENCYCLIDINE SCREEN NEGATIVE (Neg)
[2024-08-10] MEDS: ipratropium/albuterol 3ml nebule NEB SCH (12:31)
[2024-08-10] MEDS: mag hydrox/Alum hydrox/simeth 30ml oral suspension PO PRN (20:35)
[2024-08-10] MEDS: magnesium hydroxide 30ml (MOM) UD suspension PO PRN (20:36)
[2024-08-10] MEDS: morphine 2 MG/ML inj. syringe IV ONE (22:43)
[2024-08-11] VITALS (26 sets, daily range): BP systolic 124–183; BP diastolic 59–77; PULSE 67–101; RESP 16–20; TEMP 97–98.5; O2SAT 92–100
[2024-08-11] MEDS: gabapentin 100mg capsule PO ONE (01:47)
[2024-08-11] MEDS: HYDROcodone/acetaminophen 10/325mg tab PO ONE (01:50)
[2024-08-11 03:17] LABS: BASOPHILS % (AUTO) 0.2 % (0-1); EOSINOPHILS % (AUTO) 0 % (0-6); HEMATOCRIT 25.4 % (35.0-45.0); HEMOGLOBIN 8.6 g/dl (12.0-16.0); LYMPHOCYTES # (AUTO) 0.4 X10'3 (1.1-4.8); LYMPHOCYTES % (AUTO) 5.2 % (21-51); MEAN CORPUSCULAR HEMOGLOBIN 33.2 PG (27.0-31.0); MEAN CORPUSCULAR VOLUME 97.8 FL (78-98); MEAN PLATELET VOLUME 9.7 FL (7.4-10.4); MONOCYTES # (AUTO) 0.1 X10'3 (0-0.9); MONOCYTES % (AUTO) 1.7 % (2-12); NEUTROPHILS # (AUTO) 6.9 X10'3 (1.8-7.7); NEUTROPHILS % (AUTO) 92.9 % (42-75); PLATELET COUNT 223 X10'3 (140-440); RED BLOOD COUNT 2.59 X10'6 (4.20-5.60); RED CELL DISTRIBUTION WIDTH 14.9 % (11.5-14.5); WHITE BLOOD COUNT 7.5 X10'3 (4.5-11.0)
[2024-08-11 03:33] LABS: ALANINE AMINOTRANSFERASE 14 U/L (12-78); ALBUMIN 2.9 G/DL (3.4-5.0); ALBUMIN/GLOBULIN RATIO 0.7 (1.1-1.5); ALKALINE PHOSPHATASE 83 IU/L (46-116); ANION GAP 13 (8-16); ASPARTATE AMINO TRANSFERASE 9 U/L (10-37); BILIRUBIN,TOTAL 0.2 MG/DL (0.1-1.0); BLOOD UREA NITROGEN 51 MG/DL (7-18); BUN/CREATININE RATIO 11.2 (10.0-20.0); CALCIUM 8.9 MG/DL (8.5-10.1); CHLORIDE 105 MMOL/L (99-107); CREATININE 4.57 MG/DL (0.40-0.90); GLUCOSE 287 MG/DL (70-104); MAGNESIUM 2.5 MG/DL (1.5-2.4); POTASSIUM 4.7 MMOL/L (3.5-5.1); SODIUM 138 MMOL/L (135-145); TOTAL CARBON DIOXIDE 20.3 MMOL/L (24-32); TOTAL PROTEIN 7.2 G/DL (6.4-8.2); eCRCL 11 ML/MIN; eGFR 10 ML/MIN
[2024-08-11] MEDS ORDERED: MESSAGE TO NURSING IV ONE (03:50)
[2024-08-11] MEDS: MESSAGE TO NURSING IV ONE ×2 (03:58→10:07)
[2024-08-11] MEDS: acetaminophen 325mg tablet PO PRN (05:54)
[2024-08-11] MEDS: gabapentin 100mg capsule PO SCH (09:19)
[2024-08-11] MEDS: regadenoson 0.4mg/5ml syringe IV ONE (11:15)
[2024-08-11] MEDS: ondansetron/PF 4mg/2ml inj IV PRN (11:17)
[2024-08-11] MEDS: sertraline 50mg tablet PO ONE (17:00)
[2024-08-11] MEDS: isosorbide mononitrate 30mg tab.SR.24H PO SCH (17:00)
[2024-08-11] MEDS: HYDROcodone/acetaminophen 10/325mg tab PO PRN (17:01)
[2024-08-11] MEDS: pantoprazole 40 MG vial IV SCH (17:02)
[2024-08-11] MEDS: allopurinol 100mg tablet PO SCH (17:35)
[2024-08-11 18:08] LABS: % IRON SATURATION 22 % (11-46); IRON 61 UG/DL (49-151); TOTAL IRON BINDING CAPACITY 276 UG/DL (259-388)
[2024-08-11] MEDS: nicotine 21mg patch - 24 hr TD SCH (18:35)
[2024-08-11] MEDS: metoprolol tartrate 25mg tablet PO SCH (21:35)
[2024-08-11] MEDS: heparin, porcine 5000 units/ml vial SQ SCH (21:37)
[2024-08-12] VITALS (19 sets, daily range): BP systolic 105–158; BP diastolic 43–69; PULSE 70–88; RESP 16–23; TEMP 97.4–98.4; O2SAT 90–99
[2024-08-12] MEDS: methylPREDNISolone sod succ/PF 40mg inj. IV SCH ×2 (00:36→19:38)
[2024-08-12] MEDS: sertraline 50mg tablet PO SCH (07:26)
[2024-08-12] MEDS: ezetimibe 10mg tablet PO SCH (07:30)
[2024-08-12 07:35] LABS: BASOPHILS % (AUTO) 0.1 % (0-1); EOSINOPHILS % (AUTO) 0 % (0-6); HEMATOCRIT 22.9 % (35.0-45.0); HEMOGLOBIN 7.5 g/dl (12.0-16.0); LYMPHOCYTES # (AUTO) 0.9 X10'3 (1.1-4.8); LYMPHOCYTES % (AUTO) 6.4 % (21-51); MEAN CORPUSCULAR HEMOGLOBIN 32.5 PG (27.0-31.0); MEAN CORPUSCULAR HGB CONC 32.8 g/dL (33.0-36.5); MEAN CORPUSCULAR VOLUME 98.8 FL (78-98); MEAN PLATELET VOLUME 10.2 FL (7.4-10.4); MONOCYTES % (AUTO) 7.1 % (2-12); NEUTROPHILS # (AUTO) 12.3 X10'3 (1.8-7.7); NEUTROPHILS % (AUTO) 86.4 % (42-75); PLATELET COUNT 249 X10'3 (140-440); RED BLOOD COUNT 2.32 X10'6 (4.20-5.60); RED CELL DISTRIBUTION WIDTH 15.1 % (11.5-14.5); WHITE BLOOD COUNT 14.2 X10'3 (4.5-11.0)
[2024-08-12] MEDS ORDERED: methylPREDNISolone sod succ/PF 40mg inj. IV SCH (08:00)
[2024-08-12 08:13] LABS: ALANINE AMINOTRANSFERASE 13 U/L (12-78); ALBUMIN/GLOBULIN RATIO 0.8 (1.1-1.5); ALKALINE PHOSPHATASE 72 IU/L (46-116); ANION GAP 13 (8-16); ASPARTATE AMINO TRANSFERASE 14 U/L (10-37); BILIRUBIN,TOTAL 0.2 MG/DL (0.1-1.0); BLOOD UREA NITROGEN 58 MG/DL (7-18); BUN/CREATININE RATIO 12.6 (10.0-20.0); CALCIUM 8.6 MG/DL (8.5-10.1); CHLORIDE 108 MMOL/L (99-107); GLUCOSE 159 MG/DL (70-104); MAGNESIUM 2.7 MG/DL (1.5-2.4); SODIUM 141 MMOL/L (135-145); TOTAL CARBON DIOXIDE 20.3 MMOL/L (24-32); TOTAL PROTEIN 6.7 G/DL (6.4-8.2); eCRCL 11 ML/MIN; eGFR 10 ML/MIN
[2024-08-12] MEDS: EPOETIN ALFA-EPBX 20,000 UNIT/ML 1 ML MDV SQ ONE (12:02)
[2024-08-12 12:26] LABS: % IRON SATURATION 30 % (11-46); IRON 65 UG/DL (49-151); TOTAL IRON BINDING CAPACITY 220 UG/DL (259-388)
[2024-08-12] MEDS ORDERED: allopurinol 100mg tablet PO SCH (14:25)
[2024-08-12] MEDS ORDERED: heparin, porcine 5000 units/ml vial SQ SCH (16:55)
[2024-08-12] MEDS: azithromycin 250mg tablet PO SCH (16:59)
[2024-08-12] MEDS: metoprolol tartrate 25mg tablet PO ONE (20:01)
[2024-08-13] VITALS (15 sets, daily range): BP systolic 110–152; BP diastolic 44–67; PULSE 75–92; RESP 16–20; TEMP 97.4–99.1; O2SAT 90–95
[2024-08-13] MEDS: fluticasone nasal spray 16GM bottle NS SCH (01:21)
[2024-08-13 01:29] LABS: BILIRUBIN,URINE NEGATIVE (Neg); CLARITY,URINE CLEAR (Clear); COLOR,URINE YELLOW (Yellow); GLUCOSE, URINE 250 mg/dl (Neg); KETONES,URINE NEGATIVE (Neg); LEUKOCYTE ESTERASE ,URINE NEGATIVE (Neg); NITRITES, URINE NEGATIVE (Neg); OCCULT BLOOD,URINE TRACE-INTACT (Neg); PROTEIN,URINE 100 mg/dl (Neg); UROBILINOGEN,URINE 0.2 E.U/dL (0.2-1.0)
[2024-08-13 01:34] LABS: TOTAL PROTEIN,URINE RANDOM 214.4 MG/DL; UA COLLECTION TYPE CLN CATCH MIDSTREAM
[2024-08-13 01:36] LABS: BACTERIA,URINE FEW /HPF (Neg); MUCUS STRANDS NONE SEEN /LPF (Neg); RBC,URINE 0-2 /HPF (0-2); SQUAMOUS EPITHELIAL CELL,UR FEW /LPF (FEW); WBC,URINE NONE SEEN /HPF (0-4)
[2024-08-13 06:55] LABS: BASOPHILS % (AUTO) 0.1 % (0-1); EOSINOPHILS % (AUTO) 0.2 % (0-6); HEMATOCRIT 22.3 % (35.0-45.0); HEMOGLOBIN 7.3 g/dl (12.0-16.0); LYMPHOCYTES # (AUTO) 1.9 X10'3 (1.1-4.8); LYMPHOCYTES % (AUTO) 17.8 % (21-51); MEAN CORPUSCULAR HEMOGLOBIN 32.7 PG (27.0-31.0); MEAN CORPUSCULAR HGB CONC 32.8 g/dL (33.0-36.5); MEAN CORPUSCULAR VOLUME 99.7 FL (78-98); MEAN PLATELET VOLUME 10.1 FL (7.4-10.4); MONOCYTES # (AUTO) 0.9 X10'3 (0-0.9); MONOCYTES % (AUTO) 8.3 % (2-12); NEUTROPHILS % (AUTO) 73.6 % (42-75); PLATELET COUNT 230 X10'3 (140-440); RED BLOOD COUNT 2.24 X10'6 (4.20-5.60); RED CELL DISTRIBUTION WIDTH 15.5 % (11.5-14.5); WHITE BLOOD COUNT 10.9 X10'3 (4.5-11.0)
[2024-08-13 07:07] LABS: ALBUMIN/GLOBULIN RATIO 0.9 (1.1-1.5); ANION GAP 11 (8-16); ASPARTATE AMINO TRANSFERASE 18 U/L (10-37); BILIRUBIN,TOTAL 0.2 MG/DL (0.1-1.0); BLOOD UREA NITROGEN 61 MG/DL (7-18); BUN/CREATININE RATIO 13.6 (10.0-20.0); CALCIUM 8.5 MG/DL (8.5-10.1); CHLORIDE 108 MMOL/L (99-107); CREATININE 4.47 MG/DL (0.40-0.90); GLUCOSE 136 MG/DL (70-104); LACTATE DEHYDROGENASE 257 U/L (81-234); MAGNESIUM 2.7 MG/DL (1.5-2.4); POTASSIUM 5.2 MMOL/L (3.5-5.1); SODIUM 140 MMOL/L (135-145); TOTAL CARBON DIOXIDE 21.1 MMOL/L (24-32); TOTAL PROTEIN 6.5 G/DL (6.4-8.2); eCRCL 11 ML/MIN; eGFR 10 ML/MIN
[2024-08-13 07:08] LABS: ALANINE AMINOTRANSFERASE 22 U/L (12-78); ALKALINE PHOSPHATASE 68 IU/L (46-116)
[2024-08-13 07:18] LABS: HIV ANTIBODY 1&2 RAPID NON-REACTIVE (Neg)
[2024-08-14] VITALS (16 sets, daily range): BP systolic 104–166; BP diastolic 60–92; PULSE 73–105; RESP 16–18; TEMP 97.3–97.9; O2SAT 89–96
[2024-08-14 07:34] LABS: BASOPHILS % (AUTO) 0.1 % (0-1); EOSINOPHILS % (AUTO) 0.1 % (0-6); HEMATOCRIT 26.4 % (35.0-45.0); HEMOGLOBIN 8.6 g/dl (12.0-16.0); LYMPHOCYTES # (AUTO) 0.9 X10'3 (1.1-4.8); LYMPHOCYTES % (AUTO) 8.5 % (21-51); MEAN CORPUSCULAR HEMOGLOBIN 32.5 PG (27.0-31.0); MEAN CORPUSCULAR HGB CONC 32.5 g/dL (33.0-36.5); MEAN CORPUSCULAR VOLUME 100.2 FL (78-98); MEAN PLATELET VOLUME 10.4 FL (7.4-10.4); MONOCYTES # (AUTO) 0.7 X10'3 (0-0.9); MONOCYTES % (AUTO) 6.9 % (2-12); NEUTROPHILS # (AUTO) 8.8 X10'3 (1.8-7.7); NEUTROPHILS % (AUTO) 84.4 % (42-75); PLATELET COUNT 221 X10'3 (140-440); RED BLOOD COUNT 2.64 X10'6 (4.20-5.60); RED CELL DISTRIBUTION WIDTH 15.7 % (11.5-14.5); WHITE BLOOD COUNT 10.4 X10'3 (4.5-11.0)
[2024-08-14 08:01] LABS: ALANINE AMINOTRANSFERASE 45 U/L (12-78); ALBUMIN 3.3 G/DL (3.4-5.0); ALBUMIN/GLOBULIN RATIO 0.8 (1.1-1.5); ALKALINE PHOSPHATASE 85 IU/L (46-116); ANION GAP 10 (8-16); ASPARTATE AMINO TRANSFERASE 40 U/L (10-37); BILIRUBIN,TOTAL 0.2 MG/DL (0.1-1.0); BLOOD UREA NITROGEN 68 MG/DL (7-18); BUN/CREATININE RATIO 14.4 (10.0-20.0); CALCIUM 8.7 MG/DL (8.5-10.1); CHLORIDE 106 MMOL/L (99-107); CREATININE 4.71 MG/DL (0.40-0.90); GLUCOSE 205 MG/DL (70-104); POTASSIUM 5.8 MMOL/L (3.5-5.1); SODIUM 137 MMOL/L (135-145); TOTAL CARBON DIOXIDE 21.2 MMOL/L (24-32); TOTAL PROTEIN 7.5 G/DL (6.4-8.2); eCRCL 11 ML/MIN; eGFR 9 ML/MIN
[2024-08-14] MEDS: hydrALAZINE 20mg/ml inj. IV ONE (10:25)
[2024-08-14] MEDS: sodium polystyrene sulfonate 15gm/60ml oral suspension PO ONE (10:52)
[2024-08-14] MEDS: bisacodyl 10mg suppository rectal RC STA (11:49)
[2024-08-14] MEDS: docusate sodium 100mg/10ml UD cup PO SCH (12:57)
[2024-08-14] MEDS: polyethylene glycol 3350 17gm powd pack PO SCH (12:58)
[2024-08-14] MEDS: SODIUM ZIRCONIUM CYCLOSILICATE 10 GM POWD.PACK PO SCH (13:02)
[2024-08-14 13:15] LABS: ANTINUCLEAR ANTIBODIES Negative (Negative)
[2024-08-14] MEDS: amLODIPine 5mg tablet PO SCH (18:21)
[2024-08-14 19:44] LABS: OCCULT BLOOD STOOL POSITIVE (Neg)
[2024-08-15] VITALS (14 sets, daily range): BP systolic 138–158; BP diastolic 66–86; PULSE 63–92; RESP 15–20; TEMP 97.6–97.8; O2SAT 91–96
[2024-08-15 05:18] LABS: HBSAG SCREEN Negative (Negative)
[2024-08-15] MEDS: gabapentin 100mg capsule PO SCH (08:02)
[2024-08-15] MEDS: pantoprazole 40mg Tablet.DR PO SCH (08:05)
[2024-08-15 08:11] LABS: ANTISTREPTOLYSIN O AB 63.4 IU/mL (0.0-200.0); COMPLEMENT C3, SERUM 81 mg/dL (82-167); COMPLEMENT C4, SERUM 24 mg/dL (12-38)
[2024-08-15 09:14] LABS: BASOPHILS % (AUTO) 0.1 % (0-1); EOSINOPHILS % (AUTO) 0 % (0-6); HEMOGLOBIN 8.2 g/dl (12.0-16.0); LYMPHOCYTES # (AUTO) 0.9 X10'3 (1.1-4.8); LYMPHOCYTES % (AUTO) 8.1 % (21-51); MEAN CORPUSCULAR HEMOGLOBIN 32.3 PG (27.0-31.0); MEAN CORPUSCULAR HGB CONC 32.6 g/dL (33.0-36.5); MEAN CORPUSCULAR VOLUME 98.9 FL (78-98); MEAN PLATELET VOLUME 10.2 FL (7.4-10.4); MONOCYTES # (AUTO) 0.8 X10'3 (0-0.9); MONOCYTES % (AUTO) 6.8 % (2-12); NEUTROPHILS # (AUTO) 9.6 X10'3 (1.8-7.7); PLATELET COUNT 257 X10'3 (140-440); RED BLOOD COUNT 2.53 X10'6 (4.20-5.60); RED CELL DISTRIBUTION WIDTH 15.1 % (11.5-14.5); WHITE BLOOD COUNT 11.3 X10'3 (4.5-11.0)
[2024-08-15 09:32] LABS: ALANINE AMINOTRANSFERASE 45 U/L (12-78); ALBUMIN 3.1 G/DL (3.4-5.0); ALBUMIN/GLOBULIN RATIO 0.8 (1.1-1.5); ALKALINE PHOSPHATASE 79 IU/L (46-116); ANION GAP 13 (8-16); ASPARTATE AMINO TRANSFERASE 19 U/L (10-37); BILIRUBIN,TOTAL 0.2 MG/DL (0.1-1.0); BLOOD UREA NITROGEN 71 MG/DL (7-18); BUN/CREATININE RATIO 16.2 (10.0-20.0); CALCIUM 8.6 MG/DL (8.5-10.1); CHLORIDE 103 MMOL/L (99-107); CREATININE 4.37 MG/DL (0.40-0.90); GLUCOSE 264 MG/DL (70-104); POTASSIUM 4.5 MMOL/L (3.5-5.1); SODIUM 138 MMOL/L (135-145); TOTAL CARBON DIOXIDE 22.3 MMOL/L (24-32); TOTAL PROTEIN 6.9 G/DL (6.4-8.2); eCRCL 12 ML/MIN; eGFR 10 ML/MIN
[2024-08-15] MEDS ORDERED: CEFD300C3 PO (17:14)
[2024-08-15] MEDS ORDERED: EZET10TA48 PO (17:14)
[2024-08-15] MEDS ORDERED: DOCU50LI24 PO (17:14)
[2024-08-15] MEDS ORDERED: PRED10TA PO (17:14)
[2024-08-15] MEDS ORDERED: LACT1CAP26 PO (17:14)
[2024-08-15] MEDS ORDERED: PANT40TA54 PO (17:16)
[2024-08-15] MEDS ORDERED: FLUT1BLS16 INH (18:40)
[2024-08-15] MEDS ORDERED: ALBU90AE INH (18:40)
[2024-08-16 05:15] LABS: A/G RATIO 1.1 (0.7-1.7); ALPHA-1-GLOBULIN 0.3 g/dL (0.0-0.4); BETA GLOBULIN 0.7 g/dL (0.7-1.3); GAMMA GLOBULIN 0.8 g/dL (0.4-1.8); GLOBULIN, TOTAL 2.8 g/dL (2.2-3.9); M-SPIKE Not Observed g/dL (Not Observed); PROTEIN, TOTAL, SERUM 5.8 g/dL (6.0-8.5)
[2024-08-16 13:11] LABS: ALBUMIN, UR 60.1 % (.); ALPHA-1-GLOBULIN,UR 7.6 % (.); BETA GLOBULIN, UR 13.6 % (.); GAMMA GLOBULIN,UR 11.6 % (.)
[2024-08-16] MEDS ORDERED: HYDR-3965 PO (18:18)
[2024-08-16] MEDS ORDERED: FLUT1BLS7 INH (18:18)
== END 2024-08-15 19:00 | disposition home or self-care (01) | DRG 193 ==
LOC: ER 09:19 → ED HOLD 12:46 → PCU 3S 08-10 12:09
PROVIDERS: ADMIT Family Medicine; ATTEND Family Medicine
PROC: CB121ZZ Planar Nuclear Medicine Imaging of Lungs and Bronchi using Technetium 99m (Tc-99m) (ICD-10-PCS; 2024-08-10)
PROC: 4A02XM4 Measurement of Cardiac Total Activity, External Approach (ICD-10-PCS; principal; 2024-08-11)
PROC: 3E033HZ Introduction of Radioactive Substance into Peripheral Vein, Percutaneous Approach (ICD-10-PCS; 2024-08-11)
DX: J18.9 Pneumonia, unspecified organism (principal); I21.A1 Myocardial infarction type 2; I13.0 Hypertensive heart and chronic kidney disease with heart failure and stage 1 through stage 4 chronic kidney disease, or unspecified chronic kidney disease; N17.9 Acute kidney failure, unspecified; N18.4 Chronic kidney disease, stage 4 (severe); R07.89 Other chest pain; E78.00 Pure hypercholesterolemia, unspecified; E11.22 Type 2 diabetes mellitus with diabetic chronic kidney disease; F32.A Depression, unspecified; I50.9 Heart failure, unspecified; E86.0 Dehydration; I25.10 Atherosclerotic heart disease of native coronary artery without angina pectoris; F17.210 Nicotine dependence, cigarettes, uncomplicated; Z86.73 Personal history of transient ischemic attack (TIA), and cerebral infarction without residual deficits; Z95.1 Presence of aortocoronary bypass graft; Z79.82 Long term (current) use of aspirin; Z79.899 Other long term (current) drug therapy; Z80.1 Family history of malignant neoplasm of trachea, bronchus and lung; Z88.1 Allergy status to other antibiotic agents
CPT/HCPCS: 36415; 71045; 71046; 71250; 76770; 78452; 78582; 80053; 80061; 80305; 81001; 82272; 82570; 82607; 83540; 83550; 83615; 83735; 83880; 84145; 84155; 84156; 84165; 84166; 84484; 85025; 85379; 85610; 85651; 85730; 86038; 86060; 86160; 86703; 87081; 87340; 93005; 93017; 93306; 94640; 94760; 99291; A6258; A6446; A9500; A9539; A9540; G0378; J0360; J0456; J0696; J1644; J2270; J2405; J2470; J2785; J2919; J7030; J7040; J7120; Q4081

== ENCOUNTER 2024-10-04 15:27 | Inpatient (IN) | payer BC ==
[~2024-10-04] VITALS: Ht 165.1 cm; Wt 83.5 kg
[~2024-10-04 15:27] MED LIST changes: +ALBU90AE INH; +DOCU50LI24 PO; +EZET10TA48 PO; +FLUT1BLS16 INH; +FLUT1BLS7 INH; +LACT1CAP26 PO; -METR-349 PO; +PANT40TA54 PO; +PRED10TA PO
[2024-10-04 16:13] LABS: BASOPHILS # (AUTO) 0.1 X10'3 (0-0.2); BASOPHILS % (AUTO) 0.8 % (0-1); EOSINOPHILS # (AUTO) 0.2 X10'3 (0-0.9); EOSINOPHILS % (AUTO) 1.8 % (0-6); HEMATOCRIT 27.3 % (35.0-45.0); HEMOGLOBIN 9.1 g/dl (12.0-16.0); LYMPHOCYTES % (AUTO) 9.4 % (21-51); MEAN CORPUSCULAR HEMOGLOBIN 32.9 PG (27.0-31.0); MEAN CORPUSCULAR HGB CONC 33.4 g/dL (33.0-36.5); MEAN CORPUSCULAR VOLUME 98.7 FL (78-98); MEAN PLATELET VOLUME 8.9 FL (7.4-10.4); NEUTROPHILS # (AUTO) 8.6 X10'3 (1.8-7.7); PLATELET COUNT 226 X10'3 (140-440); RED BLOOD COUNT 2.76 X10'6 (4.20-5.60); RED CELL DISTRIBUTION WIDTH 15.2 % (11.5-14.5); WHITE BLOOD COUNT 10.9 X10'3 (4.5-11.0)
[2024-10-04 16:32] LABS: ALANINE AMINOTRANSFERASE 15 U/L (12-78); ALBUMIN 3.2 G/DL (3.4-5.0); ALBUMIN/GLOBULIN RATIO 0.7 (1.1-1.5); ALKALINE PHOSPHATASE 93 IU/L (46-116); ANION GAP 9 (8-16); ASPARTATE AMINO TRANSFERASE 13 U/L (10-37); BILIRUBIN,TOTAL 0.9 MG/DL (0.1-1.0); BLOOD UREA NITROGEN 41 MG/DL (7-18); BUN/CREATININE RATIO 10.7 (10.0-20.0); CALCIUM 9.2 MG/DL (8.5-10.1); CHLORIDE 112 MMOL/L (99-107); CREATININE 3.83 MG/DL (0.40-0.90); GLUCOSE 110 MG/DL (70-104); POTASSIUM 4.6 MMOL/L (3.5-5.1); SODIUM 141 MMOL/L (135-145); TOTAL CARBON DIOXIDE 20.3 MMOL/L (24-32); TOTAL PROTEIN 7.5 G/DL (6.4-8.2); eCRCL 13 ML/MIN; eGFR 12 ML/MIN
[2024-10-04] MEDS: diltiazem 5mg/ml 5ml inj. IV ONE (16:33)
[2024-10-04] MEDS: diltiazem-NS 100mg/100ml 100 ML IV SCH (16:34)
[2024-10-04] MEDS ORDERED: furosemide 10 MG/1 ML 10ml inj IV ONE (17:30)
[2024-10-04 17:35] LABS: PRO BRAIN NATRIURETIC PEPTIDE > 30000 PG/ML (0-125)
[2024-10-04 18:15] LABS: APTT 27 SECONDS (22-32); PROTHROMBIN TIME 10.9 SECONDS (9.0-12.0)
[2024-10-04] MEDS: furosemide 20 MG/2 ML vial IV ONE (18:20)
[2024-10-04] MEDS: CefTRIAXone/D5W-Rocephin 1gm 50 ML IV ONE (18:20)
[2024-10-04] MEDS ORDERED: acetaminophen 650mg rectal suppository RC PRN (18:40)
[2024-10-04] MEDS ORDERED: bisacodyl 10mg suppository rectal RC PRN (18:40)
[2024-10-04] MEDS ORDERED: acetaminophen 325mg tablet PO PRN ×2 (18:40)
[2024-10-04] MEDS ORDERED: albuterol 1.25 MG/3 ML (1/2 strength) nebule NEB PRN (18:40)
[2024-10-04] MEDS ORDERED: diphenhydrAMINE 50 mg/ml inj IV PRN (18:40)
[2024-10-04] MEDS ORDERED: diphenhydrAMINE 25mg capsule PO PRN (18:40)
[2024-10-04] MEDS: azithromycin/NS 500mg/250ml 250 ML IV ONE (19:08)
[2024-10-04] MEDS ORDERED: FURO-150 PO (19:14)
[2024-10-04] MEDS: HYDROcodone/acetaminophen 5mg/325mg tablet PO PRN (19:19)
[2024-10-04] MEDS: docusate sod 100mg capsule PO SCH (19:31)
[2024-10-04] MEDS: normal saline 1000ml 1,000 ML IV SCH (19:38)
[2024-10-04 19:45] LABS: HEMOGLOBIN A1C 6.8 % (4.5-6.2)
[2024-10-04 19:45] LABS: MAGNESIUM 2.5 MG/DL (1.5-2.4); PHOSPHORUS 3.3 MG/DL (2.3-4.5); THYROID STIMULATING HORMONE 0.57 ulU/ml (0.34-4.50)
[2024-10-04 20:26] LABS: BILIRUBIN,URINE NEGATIVE (Neg); CLARITY,URINE CLEAR (Clear); COLOR,URINE YELLOW (Yellow); GLUCOSE, URINE NEGATIVE (Neg); KETONES,URINE NEGATIVE (Neg); LEUKOCYTE ESTERASE ,URINE NEGATIVE (Neg); NITRITES, URINE NEGATIVE (Neg); OCCULT BLOOD,URINE TRACE-INTACT (Neg); PH,URINE 5.5 (4.8-8.0); PROTEIN,URINE 100 mg/dl (Neg); UROBILINOGEN,URINE 0.2 E.U/dL (0.2-1.0)
[2024-10-04 20:34] LABS: D-DIMER 1.85 MG/L FEU (0-0.50)
[2024-10-04 20:37] LABS: UA COLLECTION TYPE CLN CATCH MIDSTREAM
[2024-10-04 20:44] LABS: BACTERIA,URINE 1+ /HPF (Neg); RBC,URINE 0-2 /HPF (0-2); SQUAMOUS EPITHELIAL CELL,UR FEW /LPF (FEW); WBC,URINE 0-4 /HPF (0-4)
[2024-10-04] MEDS: morphine 2 MG/ML inj. syringe IV PRN (21:16)
[2024-10-04] MEDS: ipratropium/albuterol 3ml nebule NEB PRN (21:25)
[2024-10-04 21:26] VITALS: PULSE 80; RESP 18; O2SAT 95
[2024-10-04 21:33] VITALS: PULSE 89; RESP 18
[2024-10-05] VITALS (10 sets, daily range): BP systolic 112; BP diastolic 68; PULSE 77–94; RESP 16–18; TEMP 97.6; O2SAT 95–98
[2024-10-05] MEDS: methylPREDNISolone sod succ 125mg/2ml vial IV SCH (00:12)
[2024-10-05 01:00] LABS: BASOPHILS # (AUTO) 0.1 X10'3 (0-0.2); BASOPHILS % (AUTO) 0.7 % (0-1); EOSINOPHILS # (AUTO) 0.3 X10'3 (0-0.9); EOSINOPHILS % (AUTO) 2.6 % (0-6); HEMATOCRIT 25.6 % (35.0-45.0); HEMOGLOBIN 8.5 g/dl (12.0-16.0); LYMPHOCYTES # (AUTO) 1.7 X10'3 (1.1-4.8); LYMPHOCYTES % (AUTO) 14.5 % (21-51); MEAN CORPUSCULAR HEMOGLOBIN 32.5 PG (27.0-31.0); MEAN CORPUSCULAR HGB CONC 33.2 g/dL (33.0-36.5); MEAN CORPUSCULAR VOLUME 97.8 FL (78-98); MONOCYTES # (AUTO) 1.3 X10'3 (0-0.9); MONOCYTES % (AUTO) 11.6 % (2-12); NEUTROPHILS % (AUTO) 70.6 % (42-75); PLATELET COUNT 204 X10'3 (140-440); RED BLOOD COUNT 2.62 X10'6 (4.20-5.60); RED CELL DISTRIBUTION WIDTH 15.1 % (11.5-14.5); WHITE BLOOD COUNT 11.4 X10'3 (4.5-11.0)
[2024-10-05 01:16] LABS: ALANINE AMINOTRANSFERASE 14 U/L (12-78); ALBUMIN 2.9 G/DL (3.4-5.0); ALBUMIN/GLOBULIN RATIO 0.7 (1.1-1.5); ALKALINE PHOSPHATASE 90 IU/L (46-116); ANION GAP 12 (8-16); ASPARTATE AMINO TRANSFERASE 17 U/L (10-37); BILIRUBIN,TOTAL 0.7 MG/DL (0.1-1.0); BLOOD UREA NITROGEN 43 MG/DL (7-18); BUN/CREATININE RATIO 10.8 (10.0-20.0); CALCIUM 8.7 MG/DL (8.5-10.1); CHLORIDE 110 MMOL/L (99-107); CREATININE 3.97 MG/DL (0.40-0.90); GLUCOSE 116 MG/DL (70-104); POTASSIUM 4.6 MMOL/L (3.5-5.1); SODIUM 140 MMOL/L (135-145); TOTAL CARBON DIOXIDE 18.1 MMOL/L (24-32); TOTAL PROTEIN 7.2 G/DL (6.4-8.2); eCRCL 13 ML/MIN; eGFR 11 ML/MIN
[2024-10-05 01:21] LABS: CHOL/HDL RATIO 3.5 (0.00-4.99); CHOLESTEROL 165 MG/DL (0-200); HDL CHOLESTEROL 47 MG/DL (35-60); LDL CHOLESTEROL 92 MG/DL (50-100); TRIGLYCERIDES 136 MG/DL (20-135)
[2024-10-05] MEDS: CefTRIAXone/D5W-Rocephin 1gm 50 ML IV SCH (08:00)
[2024-10-05] MEDS: azithromycin/NS 500mg/250ml 250 ML IV SCH (08:01)
[2024-10-05] MEDS: furosemide 40mg/4ml inj IV SCH (08:01)
[2024-10-05] MEDS: enoxaparin 80mg/0.8ml syringe SUBCUT SCH (08:02)
[2024-10-05] MEDS ORDERED: albuterol 1.25 MG/3 ML (1/2 strength) nebule NEB SCH (19:00)
[2024-10-05] MEDS: ipratropium/albuterol 3ml nebule NEB SCH (20:08)
[2024-10-05] MEDS: guaiFENesin ER 600mg tablet PO SCH (20:57)
[2024-10-06] VITALS (18 sets, daily range): BP systolic 99–137; BP diastolic 55–76; PULSE 86–111; RESP 12–21; TEMP 97–98.7; O2SAT 91–97
[2024-10-06 05:55] LABS: BASOPHILS % (AUTO) 0.1 % (0-1); EOSINOPHILS % (AUTO) 0 % (0-6); HEMATOCRIT 23.8 % (35.0-45.0); HEMOGLOBIN 7.8 g/dl (12.0-16.0); LYMPHOCYTES # (AUTO) 0.3 X10'3 (1.1-4.8); LYMPHOCYTES % (AUTO) 3.3 % (21-51); MEAN CORPUSCULAR HEMOGLOBIN 32.3 PG (27.0-31.0); MEAN CORPUSCULAR HGB CONC 32.9 g/dL (33.0-36.5); MEAN CORPUSCULAR VOLUME 98.1 FL (78-98); MEAN PLATELET VOLUME 9.9 FL (7.4-10.4); MONOCYTES # (AUTO) 0.3 X10'3 (0-0.9); NEUTROPHILS # (AUTO) 9.2 X10'3 (1.8-7.7); NEUTROPHILS % (AUTO) 93.6 % (42-75); PLATELET COUNT 214 X10'3 (140-440); RED BLOOD COUNT 2.43 X10'6 (4.20-5.60); RED CELL DISTRIBUTION WIDTH 15.6 % (11.5-14.5); WHITE BLOOD COUNT 9.8 X10'3 (4.5-11.0)
[2024-10-06 06:23] LABS: ALANINE AMINOTRANSFERASE 15 U/L (12-78); ALBUMIN 2.7 G/DL (3.4-5.0); ALBUMIN/GLOBULIN RATIO 0.6 (1.1-1.5); ALKALINE PHOSPHATASE 83 IU/L (46-116); ANION GAP 12 (8-16); ASPARTATE AMINO TRANSFERASE 11 U/L (10-37); BILIRUBIN,TOTAL 0.5 MG/DL (0.1-1.0); BLOOD UREA NITROGEN 63 MG/DL (7-18); BUN/CREATININE RATIO 14.1 (10.0-20.0); CHLORIDE 105 MMOL/L (99-107); CREATININE 4.46 MG/DL (0.40-0.90); GLUCOSE 355 MG/DL (70-104); POTASSIUM 5.1 MMOL/L (3.5-5.1); SODIUM 136 MMOL/L (135-145); TOTAL CARBON DIOXIDE 18.8 MMOL/L (24-32); TOTAL PROTEIN 6.9 G/DL (6.4-8.2); eCRCL 11 ML/MIN; eGFR 10 ML/MIN
[2024-10-06] MEDS: cholecalciferol (vitamin D3) 1,000 unit (25mcg) tablet PO SCH (07:28)
[2024-10-06] MEDS: sertraline 50mg tablet PO SCH (07:29)
[2024-10-06] MEDS ORDERED: ipratropium/albuterol 3ml nebule NEB PRN (12:15)
[2024-10-07] VITALS (20 sets, daily range): BP systolic 110–146; BP diastolic 64–85; PULSE 88–101; RESP 13–23; TEMP 97–98.1; O2SAT 90–97
[2024-10-07 06:17] LABS: BASOPHILS % (AUTO) 0 % (0-1); EOSINOPHILS % (AUTO) 0 % (0-6); HEMATOCRIT 23.9 % (35.0-45.0); HEMOGLOBIN 7.8 g/dl (12.0-16.0); LYMPHOCYTES # (AUTO) 0.3 X10'3 (1.1-4.8); LYMPHOCYTES % (AUTO) 2.7 % (21-51); MEAN CORPUSCULAR HEMOGLOBIN 31.9 PG (27.0-31.0); MEAN CORPUSCULAR HGB CONC 32.5 g/dL (33.0-36.5); MEAN CORPUSCULAR VOLUME 98.1 FL (78-98); MEAN PLATELET VOLUME 9.9 FL (7.4-10.4); MONOCYTES # (AUTO) 0.4 X10'3 (0-0.9); MONOCYTES % (AUTO) 3.8 % (2-12); NEUTROPHILS # (AUTO) 10.7 X10'3 (1.8-7.7); NEUTROPHILS % (AUTO) 93.5 % (42-75); PLATELET COUNT 272 X10'3 (140-440); RED BLOOD COUNT 2.43 X10'6 (4.20-5.60); RED CELL DISTRIBUTION WIDTH 15.1 % (11.5-14.5); WHITE BLOOD COUNT 11.4 X10'3 (4.5-11.0)
[2024-10-07 06:46] LABS: ALANINE AMINOTRANSFERASE 17 U/L (12-78); ALBUMIN/GLOBULIN RATIO 0.7 (1.1-1.5); ALKALINE PHOSPHATASE 79 IU/L (46-116); ANION GAP 16 (8-16); ASPARTATE AMINO TRANSFERASE 21 U/L (10-37); BILIRUBIN,TOTAL 0.5 MG/DL (0.1-1.0); BLOOD UREA NITROGEN 67 MG/DL (7-18); BUN/CREATININE RATIO 14.3 (10.0-20.0); CALCIUM 9.5 MG/DL (8.5-10.1); CHLORIDE 105 MMOL/L (99-107); CREATININE 4.68 MG/DL (0.40-0.90); GLUCOSE 303 MG/DL (70-104); POTASSIUM 4.9 MMOL/L (3.5-5.1); SODIUM 137 MMOL/L (135-145); TOTAL CARBON DIOXIDE 16.4 MMOL/L (24-32); TOTAL PROTEIN 7.2 G/DL (6.4-8.2); eCRCL 11 ML/MIN; eGFR 9 ML/MIN
[2024-10-07] MEDS: ondansetron 4mg rapidly disintigrating tab PO PRN (13:21)
[2024-10-08] VITALS (17 sets, daily range): BP systolic 121–145; BP diastolic 66–90; PULSE 90–103; RESP 12–22; TEMP 97.4–99; O2SAT 87–98
[2024-10-08] MEDS: mag hydrox/Alum hydrox/simeth 30ml oral suspension PO PRN (00:20)
[2024-10-08 07:24] LABS: BASOPHILS % (AUTO) 0 % (0-1); EOSINOPHILS % (AUTO) 0 % (0-6); HEMATOCRIT 23.5 % (35.0-45.0); HEMOGLOBIN 7.7 g/dl (12.0-16.0); LYMPHOCYTES # (AUTO) 0.3 X10'3 (1.1-4.8); LYMPHOCYTES % (AUTO) 3.6 % (21-51); MEAN CORPUSCULAR HEMOGLOBIN 32.2 PG (27.0-31.0); MEAN CORPUSCULAR HGB CONC 32.8 g/dL (33.0-36.5); MEAN CORPUSCULAR VOLUME 98.2 FL (78-98); MEAN PLATELET VOLUME 9.8 FL (7.4-10.4); MONOCYTES # (AUTO) 0.2 X10'3 (0-0.9); MONOCYTES % (AUTO) 3.2 % (2-12); NEUTROPHILS % (AUTO) 93.2 % (42-75); PLATELET COUNT 252 X10'3 (140-440); RED BLOOD COUNT 2.39 X10'6 (4.20-5.60); RED CELL DISTRIBUTION WIDTH 15.3 % (11.5-14.5); WHITE BLOOD COUNT 7.6 X10'3 (4.5-11.0)
[2024-10-08 09:05] LABS: ALANINE AMINOTRANSFERASE 20 U/L (12-78); ALBUMIN/GLOBULIN RATIO 0.7 (1.1-1.5); ALKALINE PHOSPHATASE 74 IU/L (46-116); ANION GAP 12 (8-16); ASPARTATE AMINO TRANSFERASE 16 U/L (10-37); BILIRUBIN,TOTAL 0.4 MG/DL (0.1-1.0); BLOOD UREA NITROGEN 75 MG/DL (7-18); BUN/CREATININE RATIO 14.2 (10.0-20.0); CALCIUM 8.9 MG/DL (8.5-10.1); CHLORIDE 102 MMOL/L (99-107); GLUCOSE 378 MG/DL (70-104); POTASSIUM 5.4 MMOL/L (3.5-5.1); SODIUM 132 MMOL/L (135-145); TOTAL PROTEIN 7.1 G/DL (6.4-8.2); eCRCL 10 ML/MIN; eGFR 8 ML/MIN
[2024-10-08] MEDS: ondansetron/PF 4mg/2ml inj IV PRN (11:40)
[2024-10-08] MEDS: hydrALAZINE 20mg/ml inj. IV PRN (11:42)
[2024-10-08] MEDS: HYDROcodone/acetaminophen 10/325mg tab PO PRN (11:59)
[2024-10-08] MEDS: methylPREDNISolone sod succ 125mg/2ml vial IV SCH (13:00)
[2024-10-08] MEDS ORDERED: mineral oil 133ml enema RC PRN (13:00)
[2024-10-08] MEDS ORDERED: bisacodyl 10mg suppository rectal RC PRN (13:00)
[2024-10-08] MEDS: gabapentin 100mg capsule PO SCH (19:53)
[2024-10-08] MEDS: metoprolol tartrate 25mg tablet PO SCH (19:54)
[2024-10-08] MEDS: lactulose 20gm/30ml cup PO SCH (19:56)
[2024-10-08] MEDS: docusate sodium 100mg/10ml UD cup PO SCH (19:56)
[2024-10-09] VITALS (18 sets, daily range): BP systolic 103–143; BP diastolic 67–87; PULSE 75–93; RESP 15–24; TEMP 97.3–98.2; O2SAT 90–98
[2024-10-09] MEDS: bisacodyl 10mg suppository rectal RC STA (05:35)
[2024-10-09 06:47] LABS: BASOPHILS % (AUTO) 0.1 % (0-1); EOSINOPHILS % (AUTO) 0 % (0-6); HEMOGLOBIN 8.3 g/dl (12.0-16.0); LYMPHOCYTES # (AUTO) 0.4 X10'3 (1.1-4.8); LYMPHOCYTES % (AUTO) 5.6 % (21-51); MEAN CORPUSCULAR HEMOGLOBIN 32.5 PG (27.0-31.0); MEAN CORPUSCULAR VOLUME 98.4 FL (78-98); MONOCYTES # (AUTO) 0.5 X10'3 (0-0.9); MONOCYTES % (AUTO) 6.5 % (2-12); NEUTROPHILS # (AUTO) 6.9 X10'3 (1.8-7.7); NEUTROPHILS % (AUTO) 87.8 % (42-75); PLATELET COUNT 286 X10'3 (140-440); RED BLOOD COUNT 2.54 X10'6 (4.20-5.60); WHITE BLOOD COUNT 7.8 X10'3 (4.5-11.0)
[2024-10-09 07:03] LABS: ALANINE AMINOTRANSFERASE 21 U/L (12-78); ALBUMIN/GLOBULIN RATIO 0.7 (1.1-1.5); ALKALINE PHOSPHATASE 74 IU/L (46-116); ANION GAP 14 (8-16); ASPARTATE AMINO TRANSFERASE 20 U/L (10-37); BILIRUBIN,TOTAL 0.6 MG/DL (0.1-1.0); BLOOD UREA NITROGEN 86 MG/DL (7-18); BUN/CREATININE RATIO 14.8 (10.0-20.0); CALCIUM 8.8 MG/DL (8.5-10.1); CHLORIDE 102 MMOL/L (99-107); CREATININE 5.82 MG/DL (0.40-0.90); GLUCOSE 375 MG/DL (70-104); POTASSIUM 5.2 MMOL/L (3.5-5.1); SODIUM 133 MMOL/L (135-145); TOTAL CARBON DIOXIDE 17.2 MMOL/L (24-32); TOTAL PROTEIN 7.4 G/DL (6.4-8.2); eCRCL 9 ML/MIN; eGFR 7 ML/MIN
[2024-10-09] MEDS: sertraline 50mg tablet PO SCH (08:00)
[2024-10-09] MEDS: ezetimibe 10mg tablet PO SCH (08:24)
[2024-10-09] MEDS: aspirin 81mg, enteric-coated 1 TAB TABLET.DR PO SCH (08:25)
[2024-10-09] MEDS: atorvastatin 20mg tablet PO SCH (08:26)
[2024-10-09] MEDS: cholecalciferol (vitamin D3) 1,000 unit (25mcg) tablet PO SCH (08:28)
[2024-10-09] MEDS: apixaban 5mg tablet PO SCH (19:57)
[2024-10-09] MEDS: sennosides/docusate sodium tablet PO SCH (20:00)
[2024-10-10] VITALS (20 sets, daily range): BP systolic 116–169; BP diastolic 56–75; PULSE 71–82; RESP 15–24; TEMP 97.4–100; O2SAT 90–100
[2024-10-10 07:57] LABS: BASOPHILS % (AUTO) 0.1 % (0-1); EOSINOPHILS % (AUTO) 0 % (0-6); HEMATOCRIT 25.2 % (35.0-45.0); HEMOGLOBIN 8.1 g/dl (12.0-16.0); LYMPHOCYTES # (AUTO) 0.5 X10'3 (1.1-4.8); MEAN CORPUSCULAR HEMOGLOBIN 31.5 PG (27.0-31.0); MEAN CORPUSCULAR HGB CONC 32.1 g/dL (33.0-36.5); MEAN CORPUSCULAR VOLUME 97.9 FL (78-98); MEAN PLATELET VOLUME 9.7 FL (7.4-10.4); MONOCYTES # (AUTO) 0.5 X10'3 (0-0.9); MONOCYTES % (AUTO) 6.3 % (2-12); NEUTROPHILS # (AUTO) 7.5 X10'3 (1.8-7.7); NEUTROPHILS % (AUTO) 87.6 % (42-75); PLATELET COUNT 273 X10'3 (140-440); RED BLOOD COUNT 2.57 X10'6 (4.20-5.60); RED CELL DISTRIBUTION WIDTH 15.1 % (11.5-14.5); WHITE BLOOD COUNT 8.5 X10'3 (4.5-11.0)
[2024-10-10 08:34] LABS: ALANINE AMINOTRANSFERASE 27 U/L (12-78); ALBUMIN/GLOBULIN RATIO 0.8 (1.1-1.5); ALKALINE PHOSPHATASE 70 IU/L (46-116); ANION GAP 15 (8-16); ASPARTATE AMINO TRANSFERASE 17 U/L (10-37); BILIRUBIN,TOTAL 0.4 MG/DL (0.1-1.0); BLOOD UREA NITROGEN 94 MG/DL (7-18); BUN/CREATININE RATIO 16.4 (10.0-20.0); CALCIUM 8.8 MG/DL (8.5-10.1); CHLORIDE 103 MMOL/L (99-107); CREATININE 5.72 MG/DL (0.40-0.90); GLUCOSE 315 MG/DL (70-104); POTASSIUM 5.1 MMOL/L (3.5-5.1); SODIUM 133 MMOL/L (135-145); TOTAL CARBON DIOXIDE 15.3 MMOL/L (24-32); eCRCL 9 ML/MIN; eGFR 7 ML/MIN
[2024-10-10] MEDS ORDERED: normal saline 1000ml 100 ML IV PRN (10:10)
[2024-10-10] MEDS ORDERED: DEXTROSE 15 GM of carb/4 tabs (each vial/BOTTLE has 4 tablets) PO PRN ×2 (15:05)
[2024-10-10] MEDS ORDERED: dextrose 50%-water 50ml dispensing syringe IV PRN (15:05)
[2024-10-10] MEDS ORDERED: glucagon, human recombinant 1mg kit SUBCUT PRN (15:05)
[2024-10-10] MEDS: insulin glargine (Lantus) pen - multi-dose SQ SCH (22:28)
[2024-10-10] MEDS: INSULIN LISPRO 100 UNIT/ML INSULN.PEN MULTI-DOSE SQ SCH (22:28)
[2024-10-11] VITALS (18 sets, daily range): BP systolic 111–153; BP diastolic 62–93; PULSE 66–81; RESP 13–20; TEMP 97.3–98.2; O2SAT 90–100
[2024-10-11 04:41] LABS: UREA NITROGEN 24HR,URINE 3.6 GM/24HR (7-20)
[2024-10-11 05:29] LABS: TOTAL PROTEIN,URINE RANDOM 156.7 MG/DL
[2024-10-11 07:35] LABS: BASOPHILS % (AUTO) 0 % (0-1); EOSINOPHILS % (AUTO) 0.1 % (0-6); HEMATOCRIT 24.8 % (35.0-45.0); LYMPHOCYTES # (AUTO) 0.4 X10'3 (1.1-4.8); MEAN CORPUSCULAR HEMOGLOBIN 31.8 PG (27.0-31.0); MEAN CORPUSCULAR HGB CONC 32.5 g/dL (33.0-36.5); MEAN CORPUSCULAR VOLUME 97.8 FL (78-98); MEAN PLATELET VOLUME 9.8 FL (7.4-10.4); MONOCYTES # (AUTO) 0.4 X10'3 (0-0.9); MONOCYTES % (AUTO) 4.3 % (2-12); NEUTROPHILS # (AUTO) 8.9 X10'3 (1.8-7.7); NEUTROPHILS % (AUTO) 91.6 % (42-75); PLATELET COUNT 266 X10'3 (140-440); RED BLOOD COUNT 2.53 X10'6 (4.20-5.60); WHITE BLOOD COUNT 9.7 X10'3 (4.5-11.0)
[2024-10-11 08:11] LABS: TOTAL CARBON DIOXIDE 17.1 MMOL/L (24-32)
[2024-10-11 08:20] LABS: ALANINE AMINOTRANSFERASE 66 U/L (12-78); ALBUMIN 2.9 G/DL (3.4-5.0); ALBUMIN/GLOBULIN RATIO 0.8 (1.1-1.5); ALKALINE PHOSPHATASE 84 IU/L (46-116); ANION GAP 12 (8-16); ASPARTATE AMINO TRANSFERASE 55 U/L (10-37); BILIRUBIN,TOTAL 0.3 MG/DL (0.1-1.0); BLOOD UREA NITROGEN 98 MG/DL (7-18); BUN/CREATININE RATIO 17.9 (10.0-20.0); CALCIUM 8.7 MG/DL (8.5-10.1); CHLORIDE 107 MMOL/L (99-107); CREATININE 5.46 MG/DL (0.40-0.90); GLUCOSE 211 MG/DL (70-104); POTASSIUM 5.6 MMOL/L (3.5-5.1); SODIUM 136 MMOL/L (135-145); TOTAL PROTEIN 6.6 G/DL (6.4-8.2); eCRCL 9 ML/MIN; eGFR 8 ML/MIN
[2024-10-11] MEDS: heparin 1,000 units/ml 10ml inj HE ONE (19:50)
[2024-10-11] MEDS: mannitol 12.5gm/50mL VIAL IV ONE (19:50)
[2024-10-12] VITALS (27 sets, daily range): BP systolic 101–151; BP diastolic 52–76; PULSE 61–92; RESP 14–19; TEMP 97–98.3; O2SAT 94–99
[2024-10-12 06:17] LABS: BASOPHILS % (AUTO) 0.1 % (0-1); EOSINOPHILS % (AUTO) 0 % (0-6); HEMATOCRIT 24.9 % (35.0-45.0); LYMPHOCYTES # (AUTO) 0.3 X10'3 (1.1-4.8); LYMPHOCYTES % (AUTO) 2.6 % (21-51); MEAN CORPUSCULAR HEMOGLOBIN 31.3 PG (27.0-31.0); MEAN CORPUSCULAR HGB CONC 32.1 g/dL (33.0-36.5); MEAN CORPUSCULAR VOLUME 97.5 FL (78-98); MEAN PLATELET VOLUME 10.1 FL (7.4-10.4); MONOCYTES # (AUTO) 0.4 X10'3 (0-0.9); NEUTROPHILS # (AUTO) 11.1 X10'3 (1.8-7.7); NEUTROPHILS % (AUTO) 94.3 % (42-75); PLATELET COUNT 290 X10'3 (140-440); RED BLOOD COUNT 2.55 X10'6 (4.20-5.60); RED CELL DISTRIBUTION WIDTH 15.1 % (11.5-14.5); WHITE BLOOD COUNT 11.7 X10'3 (4.5-11.0)
[2024-10-12 06:38] LABS: ALANINE AMINOTRANSFERASE 49 U/L (12-78); ALBUMIN 2.8 G/DL (3.4-5.0); ALBUMIN/GLOBULIN RATIO 0.8 (1.1-1.5); ALKALINE PHOSPHATASE 77 IU/L (46-116); ANION GAP 12 (8-16); ASPARTATE AMINO TRANSFERASE 16 U/L (10-37); BILIRUBIN,TOTAL 0.3 MG/DL (0.1-1.0); BLOOD UREA NITROGEN 104 MG/DL (7-18); BUN/CREATININE RATIO 19.1 (10.0-20.0); CALCIUM 8.5 MG/DL (8.5-10.1); CHLORIDE 108 MMOL/L (99-107); CREATININE 5.44 MG/DL (0.40-0.90); GLUCOSE 154 MG/DL (70-104); POTASSIUM 5.4 MMOL/L (3.5-5.1); SODIUM 138 MMOL/L (135-145); TOTAL CARBON DIOXIDE 18.4 MMOL/L (24-32); TOTAL PROTEIN 6.4 G/DL (6.4-8.2); eCRCL 9 ML/MIN; eGFR 8 ML/MIN
[2024-10-12] MEDS ORDERED: PATIROMER CALCIUM SORBITEX 8.4 GM POWD.PACK PO STA (08:30)
[2024-10-12] MEDS: LIDOcaine 1%/PF 5ML 10 MG/ML VIAL ONE ×2 (13:33→13:52)
[2024-10-12] MEDS: heparin 1,000 units/ml 10ml inj HE ONE ×2 (16:53→16:55)
[2024-10-12] MEDS: mannitol 12.5gm/50mL VIAL IV ONE (16:55)
[2024-10-12] MEDS: NUT.TX.IMP.RENAL FXN,LAC-REDUC (Nepro) 237 ML VANILLA PO SCH (18:00)
[2024-10-12] MEDS: HYDROcodone/acetaminophen 10/325mg tab PO PRN (20:48)
[2024-10-12] MEDS: magnesium hydroxide 30ml (MOM) UD suspension PO PRN (22:39)
[2024-10-13] VITALS (17 sets, daily range): BP systolic 102–142; BP diastolic 59–71; PULSE 74–86; RESP 14–17; TEMP 97.1–98.7; O2SAT 88–100
[2024-10-13 06:11] LABS: HBSAG SCREEN Negative (Negative); HEP B CORE AB, TOT Negative (Negative); HEP B SURF AB Reactive (.)
[2024-10-13 06:20] LABS: BASOPHILS % (AUTO) 0 % (0-1); EOSINOPHILS % (AUTO) 0 % (0-6); HEMATOCRIT 23.7 % (35.0-45.0); HEMOGLOBIN 7.8 g/dl (12.0-16.0); LYMPHOCYTES # (AUTO) 0.2 X10'3 (1.1-4.8); LYMPHOCYTES % (AUTO) 1.9 % (21-51); MEAN CORPUSCULAR HEMOGLOBIN 31.5 PG (27.0-31.0); MEAN CORPUSCULAR HGB CONC 32.8 g/dL (33.0-36.5); MEAN PLATELET VOLUME 9.7 FL (7.4-10.4); MONOCYTES # (AUTO) 0.4 X10'3 (0-0.9); MONOCYTES % (AUTO) 3.3 % (2-12); NEUTROPHILS # (AUTO) 12.1 X10'3 (1.8-7.7); NEUTROPHILS % (AUTO) 94.8 % (42-75); PLATELET COUNT 281 X10'3 (140-440); RED BLOOD COUNT 2.47 X10'6 (4.20-5.60); RED CELL DISTRIBUTION WIDTH 14.9 % (11.5-14.5); WHITE BLOOD COUNT 12.8 X10'3 (4.5-11.0)
[2024-10-13 06:50] LABS: ALANINE AMINOTRANSFERASE 43 U/L (12-78); ALBUMIN 2.6 G/DL (3.4-5.0); ALBUMIN/GLOBULIN RATIO 0.8 (1.1-1.5); ALKALINE PHOSPHATASE 74 IU/L (46-116); ANION GAP 8 (8-16); ASPARTATE AMINO TRANSFERASE 14 U/L (10-37); BILIRUBIN,TOTAL 0.3 MG/DL (0.1-1.0); BLOOD UREA NITROGEN 59 MG/DL (7-18); BUN/CREATININE RATIO 16.7 (10.0-20.0); CALCIUM 8.2 MG/DL (8.5-10.1); CHLORIDE 107 MMOL/L (99-107); CREATININE 3.54 MG/DL (0.40-0.90); GLUCOSE 199 MG/DL (70-104); POTASSIUM 4.5 MMOL/L (3.5-5.1); SODIUM 140 MMOL/L (135-145); TOTAL CARBON DIOXIDE 24.9 MMOL/L (24-32); eCRCL 14 ML/MIN; eGFR 13 ML/MIN
[2024-10-13] MEDS ORDERED: PATIROMER CALCIUM SORBITEX 8.4 GM POWD.PACK PO SCH (08:00)
[2024-10-13 10:41] LABS: LIPASE 25 U/L (16-77)
[2024-10-13] MEDS: morphine 2 MG/ML inj. syringe IV PRN (16:12)
[2024-10-13] MEDS: heparin 1,000 units/ml 10ml inj HE ONE (19:29)
[2024-10-13] MEDS: heparin 1,000 units/ml 10ml inj IV ONE (19:29)
[2024-10-13] MEDS: mannitol 12.5gm/50mL VIAL IV ONE (19:29)
[2024-10-13] MEDS: EPOETIN ALFA-EPBX 20,000 UNIT/ML 1 ML MDV IV ONE (19:30)
[2024-10-13] MEDS: bisacodyl 10mg suppository rectal RC PRN (21:32)
[2024-10-13] MEDS: insulin glargine (Lantus) pen - multi-dose SQ SCH (21:38)
[2024-10-13] MEDS: INSULIN LISPRO 100 UNIT/ML INSULN.PEN MULTI-DOSE SQ SCH (21:38)
[2024-10-14] VITALS (28 sets, daily range): BP systolic 98–177; BP diastolic 54–82; PULSE 71–159; RESP 14–22; TEMP 97.1–98.9; O2SAT 92–100
[2024-10-14 06:57] LABS: BASOPHILS % (AUTO) 0.1 % (0-1); EOSINOPHILS % (AUTO) 0 % (0-6); HEMATOCRIT 25.7 % (35.0-45.0); HEMOGLOBIN 8.3 g/dl (12.0-16.0); LYMPHOCYTES # (AUTO) 0.4 X10'3 (1.1-4.8); LYMPHOCYTES % (AUTO) 2.7 % (21-51); MEAN CORPUSCULAR HEMOGLOBIN 31.2 PG (27.0-31.0); MEAN CORPUSCULAR HGB CONC 32.4 g/dL (33.0-36.5); MEAN CORPUSCULAR VOLUME 96.3 FL (78-98); MEAN PLATELET VOLUME 9.8 FL (7.4-10.4); MONOCYTES # (AUTO) 0.6 X10'3 (0-0.9); MONOCYTES % (AUTO) 3.6 % (2-12); NEUTROPHILS # (AUTO) 14.4 X10'3 (1.8-7.7); NEUTROPHILS % (AUTO) 93.6 % (42-75); PLATELET COUNT 258 X10'3 (140-440); RED BLOOD COUNT 2.67 X10'6 (4.20-5.60); WHITE BLOOD COUNT 15.4 X10'3 (4.5-11.0)
[2024-10-14 07:27] LABS: ALANINE AMINOTRANSFERASE 37 U/L (12-78); ALBUMIN 2.7 G/DL (3.4-5.0); ALBUMIN/GLOBULIN RATIO 0.7 (1.1-1.5); ALKALINE PHOSPHATASE 80 IU/L (46-116); ANION GAP 8 (8-16); ASPARTATE AMINO TRANSFERASE 22 U/L (10-37); BILIRUBIN,TOTAL 0.8 MG/DL (0.1-1.0); BLOOD UREA NITROGEN 72 MG/DL (7-18); BUN/CREATININE RATIO 18.4 (10.0-20.0); CALCIUM 8.5 MG/DL (8.5-10.1); CHLORIDE 104 MMOL/L (99-107); CREATININE 3.91 MG/DL (0.40-0.90); GLUCOSE 177 MG/DL (70-104); POTASSIUM 5.2 MMOL/L (3.5-5.1); SODIUM 137 MMOL/L (135-145); TOTAL CARBON DIOXIDE 24.8 MMOL/L (24-32); TOTAL PROTEIN 6.4 G/DL (6.4-8.2); eCRCL 13 ML/MIN; eGFR 12 ML/MIN
[2024-10-14] MEDS: heparin 1,000 units/ml 10ml inj HE ONE (07:57)
[2024-10-14] MEDS: PATIROMER CALCIUM SORBITEX 8.4 GM POWD.PACK PO ONE (08:40)
[2024-10-14] MEDS: diltiazem-NS 100mg/100ml 100 ML IV SCH ×2 (08:55→16:53)
[2024-10-14] MEDS: digoxin 250mcg/ml 2ml ampule IV STA ×2 (11:31→13:01)
[2024-10-14] MEDS: ipratropium 0.5 MG/2.5ML nebule IH SCH (15:28)
[2024-10-15] VITALS (22 sets, daily range): BP systolic 100–145; BP diastolic 53–70; PULSE 52–100; RESP 11–18; TEMP 97–98.7; O2SAT 94–99
[2024-10-15 06:38] LABS: BASOPHILS % (AUTO) 0.1 % (0-1); EOSINOPHILS % (AUTO) 0 % (0-6); HEMATOCRIT 25.4 % (35.0-45.0); HEMOGLOBIN 8.2 g/dl (12.0-16.0); LYMPHOCYTES # (AUTO) 0.5 X10'3 (1.1-4.8); LYMPHOCYTES % (AUTO) 3.1 % (21-51); MEAN CORPUSCULAR HEMOGLOBIN 30.9 PG (27.0-31.0); MEAN CORPUSCULAR HGB CONC 32.1 g/dL (33.0-36.5); MEAN CORPUSCULAR VOLUME 96.3 FL (78-98); MEAN PLATELET VOLUME 9.9 FL (7.4-10.4); MONOCYTES # (AUTO) 0.5 X10'3 (0-0.9); MONOCYTES % (AUTO) 3.2 % (2-12); NEUTROPHILS % (AUTO) 93.6 % (42-75); PLATELET COUNT 238 X10'3 (140-440); RED BLOOD COUNT 2.64 X10'6 (4.20-5.60); RED CELL DISTRIBUTION WIDTH 15.6 % (11.5-14.5)
[2024-10-15 07:26] LABS: ALANINE AMINOTRANSFERASE 40 U/L (12-78); ALBUMIN 2.5 G/DL (3.4-5.0); ALBUMIN/GLOBULIN RATIO 0.8 (1.1-1.5); ALKALINE PHOSPHATASE 82 IU/L (46-116); ANION GAP 6 (8-16); ASPARTATE AMINO TRANSFERASE 16 U/L (10-37); BILIRUBIN,TOTAL 0.3 MG/DL (0.1-1.0); BLOOD UREA NITROGEN 51 MG/DL (7-18); BUN/CREATININE RATIO 18.8 (10.0-20.0); CHLORIDE 107 MMOL/L (99-107); CREATININE 2.72 MG/DL (0.40-0.90); GLUCOSE 255 MG/DL (70-104); MAGNESIUM 2.5 MG/DL (1.5-2.4); POTASSIUM 4.9 MMOL/L (3.5-5.1); SODIUM 139 MMOL/L (135-145); TOTAL CARBON DIOXIDE 26.4 MMOL/L (24-32); TOTAL PROTEIN 5.8 G/DL (6.4-8.2); eCRCL 19 ML/MIN; eGFR 18 ML/MIN
[2024-10-15] MEDS: methylPREDNISolone sod succ 125mg/2ml vial IV SCH (08:18)
[2024-10-15] MEDS: amiodarone 200mg tablet PO SCH (08:24)
[2024-10-15] MEDS: budesonide 0.5mg/2ml UD nebule IH SCH (08:58)
[2024-10-15] MEDS: CefTRIAXone/D5W-Rocephin 1gm 50 ML IV ONE (12:03)
[2024-10-16] VITALS (23 sets, daily range): BP systolic 124–141; BP diastolic 48–68; PULSE 66–103; RESP 16–20; TEMP 97.3–98.6; O2SAT 89–100
[2024-10-16 06:54] LABS: BASOPHILS # (AUTO) 0.1 X10'3 (0-0.2); BASOPHILS % (AUTO) 0.3 % (0-1); EOSINOPHILS % (AUTO) 0.1 % (0-6); HEMATOCRIT 26.6 % (35.0-45.0); HEMOGLOBIN 8.6 g/dl (12.0-16.0); LYMPHOCYTES # (AUTO) 1.2 X10'3 (1.1-4.8); LYMPHOCYTES % (AUTO) 5.4 % (21-51); MEAN CORPUSCULAR HEMOGLOBIN 31.5 PG (27.0-31.0); MEAN CORPUSCULAR HGB CONC 32.1 g/dL (33.0-36.5); MEAN PLATELET VOLUME 10.3 FL (7.4-10.4); MONOCYTES # (AUTO) 1.3 X10'3 (0-0.9); MONOCYTES % (AUTO) 5.9 % (2-12); NEUTROPHILS # (AUTO) 19.2 X10'3 (1.8-7.7); NEUTROPHILS % (AUTO) 88.3 % (42-75); PLATELET COUNT 243 X10'3 (140-440); RED BLOOD COUNT 2.72 X10'6 (4.20-5.60); RED CELL DISTRIBUTION WIDTH 15.1 % (11.5-14.5); WHITE BLOOD COUNT 21.8 X10'3 (4.5-11.0)
[2024-10-16 07:15] LABS: ALANINE AMINOTRANSFERASE 34 U/L (12-78); ALBUMIN 2.5 G/DL (3.4-5.0); ALBUMIN/GLOBULIN RATIO 0.7 (1.1-1.5); ALKALINE PHOSPHATASE 86 IU/L (46-116); ANION GAP 7 (8-16); ASPARTATE AMINO TRANSFERASE 19 U/L (10-37); BILIRUBIN,TOTAL 0.3 MG/DL (0.1-1.0); BLOOD UREA NITROGEN 63 MG/DL (7-18); BUN/CREATININE RATIO 18.1 (10.0-20.0); CALCIUM 8.1 MG/DL (8.5-10.1); CHLORIDE 104 MMOL/L (99-107); CREATININE 3.49 MG/DL (0.40-0.90); GLUCOSE 151 MG/DL (70-104); MAGNESIUM 2.5 MG/DL (1.5-2.4); POTASSIUM 4.4 MMOL/L (3.5-5.1); SODIUM 136 MMOL/L (135-145); TOTAL CARBON DIOXIDE 24.6 MMOL/L (24-32); TOTAL PROTEIN 6.1 G/DL (6.4-8.2); eCRCL 15 ML/MIN; eGFR 13 ML/MIN
[2024-10-16] MEDS: atorvastatin 10mg tablet PO SCH (08:34)
[2024-10-16] MEDS: CefTRIAXone/D5W-Rocephin 1gm 50 ML IV SCH (08:38)
[2024-10-16] MEDS: EPOETIN ALFA-EPBX 20,000 UNIT/ML 1 ML MDV IV ONE (10:29)
[2024-10-16] MEDS: heparin 1,000 units/ml 10ml inj IV ONE (10:41)
[2024-10-16] MEDS: heparin 1,000 units/ml 10ml inj HE ONE ×2 (10:41→10:42)
[2024-10-17] VITALS (30 sets, daily range): BP systolic 108–148; BP diastolic 41–76; PULSE 62–134; RESP 13–22; TEMP 96.7–98.2; O2SAT 90–99
[2024-10-17] MEDS: dextrose 50%-water 50ml dispensing syringe IV PRN (07:37)
[2024-10-17 07:46] LABS: BASOPHILS % (AUTO) 0.1 % (0-1); EOSINOPHILS # (AUTO) 0.1 X10'3 (0-0.9); EOSINOPHILS % (AUTO) 0.5 % (0-6); HEMATOCRIT 25.4 % (35.0-45.0); HEMOGLOBIN 8.4 g/dl (12.0-16.0); LYMPHOCYTES # (AUTO) 2.5 X10'3 (1.1-4.8); LYMPHOCYTES % (AUTO) 12.4 % (21-51); MEAN CORPUSCULAR HGB CONC 33.1 g/dL (33.0-36.5); MEAN CORPUSCULAR VOLUME 96.7 FL (78-98); MONOCYTES # (AUTO) 1.6 X10'3 (0-0.9); MONOCYTES % (AUTO) 7.9 % (2-12); NEUTROPHILS # (AUTO) 16.3 X10'3 (1.8-7.7); NEUTROPHILS % (AUTO) 79.1 % (42-75); PLATELET COUNT 228 X10'3 (140-440); RED BLOOD COUNT 2.62 X10'6 (4.20-5.60); RED CELL DISTRIBUTION WIDTH 14.8 % (11.5-14.5); WHITE BLOOD COUNT 20.6 X10'3 (4.5-11.0)
[2024-10-17 07:49] LABS: ALANINE AMINOTRANSFERASE 84 U/L (12-78); ALBUMIN 2.4 G/DL (3.4-5.0); ALBUMIN/GLOBULIN RATIO 0.7 (1.1-1.5); ALKALINE PHOSPHATASE 124 IU/L (46-116); ANION GAP 7 (8-16); ASPARTATE AMINO TRANSFERASE 53 U/L (10-37); BILIRUBIN,TOTAL 0.3 MG/DL (0.1-1.0); BLOOD UREA NITROGEN 44 MG/DL (7-18); BUN/CREATININE RATIO 16.4 (10.0-20.0); CHLORIDE 105 MMOL/L (99-107); CREATININE 2.69 MG/DL (0.40-0.90); GLUCOSE 56 MG/DL (70-104); MAGNESIUM 2.3 MG/DL (1.5-2.4); POTASSIUM 3.4 MMOL/L (3.5-5.1); SODIUM 140 MMOL/L (135-145); TOTAL CARBON DIOXIDE 27.9 MMOL/L (24-32); TOTAL PROTEIN 5.7 G/DL (6.4-8.2); eCRCL 19 ML/MIN; eGFR 18 ML/MIN
[2024-10-17] MEDS: atorvastatin 20mg tablet PO SCH (09:02)
[2024-10-17] MEDS: methylPREDNISolone sod succ/PF 40mg inj. IV SCH (09:04)
[2024-10-17] MEDS ORDERED: heparin 1,000unit/ml 10ml vial 10 ML ONE (12:44)
[2024-10-17] MEDS ORDERED: LIDOcaine 1% 30ml preserv. free vial ONE (12:45)
[2024-10-17] MEDS ORDERED: midazolam 1 mg/ML 2ml injection ONE (12:52)
[2024-10-17] MEDS ORDERED: fentaNYL/PF 50MCG/1 ML 2ML syringe ONE (12:52)
[2024-10-18] VITALS (17 sets, daily range): BP systolic 105–155; BP diastolic 43–66; PULSE 57–98; RESP 14–20; TEMP 97.3–97.9; O2SAT 96–99
[2024-10-18] MEDS ORDERED: albumin (human) 25% 100ml IV 100 ML IV PRN (08:00)
[2024-10-18 08:24] LABS: BASOPHILS % (AUTO) 0.2 % (0-1); EOSINOPHILS # (AUTO) 0.2 X10'3 (0-0.9); EOSINOPHILS % (AUTO) 0.8 % (0-6); HEMATOCRIT 28.1 % (35.0-45.0); LYMPHOCYTES # (AUTO) 2.3 X10'3 (1.1-4.8); LYMPHOCYTES % (AUTO) 12.2 % (21-51); MEAN CORPUSCULAR HEMOGLOBIN 31.5 PG (27.0-31.0); MEAN CORPUSCULAR HGB CONC 32.1 g/dL (33.0-36.5); MEAN CORPUSCULAR VOLUME 98.1 FL (78-98); MEAN PLATELET VOLUME 9.7 FL (7.4-10.4); MONOCYTES # (AUTO) 1.3 X10'3 (0-0.9); MONOCYTES % (AUTO) 6.5 % (2-12); NEUTROPHILS # (AUTO) 15.5 X10'3 (1.8-7.7); NEUTROPHILS % (AUTO) 80.3 % (42-75); PLATELET COUNT 240 X10'3 (140-440); RED BLOOD COUNT 2.86 X10'6 (4.20-5.60); RED CELL DISTRIBUTION WIDTH 15.5 % (11.5-14.5); WHITE BLOOD COUNT 19.3 X10'3 (4.5-11.0)
[2024-10-18 08:45] LABS: ALANINE AMINOTRANSFERASE 90 U/L (12-78); ALBUMIN 2.5 G/DL (3.4-5.0); ALBUMIN/GLOBULIN RATIO 0.7 (1.1-1.5); ALKALINE PHOSPHATASE 161 IU/L (46-116); ANION GAP 9 (8-16); ASPARTATE AMINO TRANSFERASE 50 U/L (10-37); BILIRUBIN,TOTAL 0.2 MG/DL (0.1-1.0); BLOOD UREA NITROGEN 54 MG/DL (7-18); BUN/CREATININE RATIO 16.3 (10.0-20.0); CHLORIDE 103 MMOL/L (99-107); CREATININE 3.31 MG/DL (0.40-0.90); GLUCOSE 90 MG/DL (70-104); MAGNESIUM 2.3 MG/DL (1.5-2.4); POTASSIUM 3.8 MMOL/L (3.5-5.1); SODIUM 137 MMOL/L (135-145); TOTAL PROTEIN 6.2 G/DL (6.4-8.2); eCRCL 15 ML/MIN; eGFR 14 ML/MIN
[2024-10-18] MEDS: EPOETIN ALFA-EPBX 20,000 UNIT/ML 1 ML MDV IV ONE (11:12)
[2024-10-18] MEDS: heparin 1,000 units/ml 10ml inj HE ONE ×2 (11:27→11:28)
[2024-10-18] MEDS: heparin 1,000 units/ml 10ml inj IV ONE (11:27)
[2024-10-18] MEDS: heparin 1,000unit/ml 10ml vial 10 ML IV ONE (12:48)
[2024-10-18] MEDS ORDERED: LEVO-65 PO (13:14)
[2024-10-18] MEDS: methylPREDNISolone sod succ/PF 40mg inj. IV SCH (13:54)
[2024-10-18] MEDS ORDERED: morphine 2 MG/ML inj. syringe IV PRN (16:10)
[2024-10-18] MEDS ORDERED: HYDR-3965 PO (16:16)
== END 2024-10-18 16:54 | disposition home or self-care (01) | DRG 280 ==
LOC: ER 15:28 → ED HOLD 18:45 → PCU 3S 10-05 14:13
PROVIDERS: ADMIT Family Medicine; ATTEND Family Medicine
PROC: CB121ZZ Planar Nuclear Medicine Imaging of Lungs and Bronchi using Technetium 99m (Tc-99m) (ICD-10-PCS; 2024-10-06)
PROC: CT131ZZ Planar Nuclear Medicine Imaging of Kidneys, Ureters and Bladder using Technetium 99m (Tc-99m) (ICD-10-PCS; 2024-10-08)
PROC: 02HV33Z Insertion of Infusion Device into Superior Vena Cava, Percutaneous Approach (ICD-10-PCS; principal; 2024-10-12)
PROC: 5A1D70Z Performance of Urinary Filtration, Intermittent, Less than 6 Hours Per Day (ICD-10-PCS; 2024-10-12)
PROC: 5A1D70Z Performance of Urinary Filtration, Intermittent, Less than 6 Hours Per Day (ICD-10-PCS; 2024-10-14)
PROC: 5A1D70Z Performance of Urinary Filtration, Intermittent, Less than 6 Hours Per Day (ICD-10-PCS; 2024-10-16)
PROC: 0JH63XZ Insertion of Tunneled Vascular Access Device into Chest Subcutaneous Tissue and Fascia, Percutaneous Approach (ICD-10-PCS; 2024-10-17)
PROC: 02HV33Z Insertion of Infusion Device into Superior Vena Cava, Percutaneous Approach (ICD-10-PCS; 2024-10-17)
PROC: B548ZZA Ultrasonography of Superior Vena Cava, Guidance (ICD-10-PCS; 2024-10-17)
PROC: 5A1D70Z Performance of Urinary Filtration, Intermittent, Less than 6 Hours Per Day (ICD-10-PCS; 2024-10-18)
DX: I13.2 Hypertensive heart and chronic kidney disease with heart failure and with stage 5 chronic kidney disease, or end stage renal disease (principal); I50.33 Acute on chronic diastolic (congestive) heart failure; I21.A1 Myocardial infarction type 2; N18.6 End stage renal disease; J18.9 Pneumonia, unspecified organism; J96.01 Acute respiratory failure with hypoxia; J44.0 Chronic obstructive pulmonary disease with (acute) lower respiratory infection; J44.1 Chronic obstructive pulmonary disease with (acute) exacerbation; N17.9 Acute kidney failure, unspecified; E78.00 Pure hypercholesterolemia, unspecified; G89.4 Chronic pain syndrome; I25.10 Atherosclerotic heart disease of native coronary artery without angina pectoris; E11.22 Type 2 diabetes mellitus with diabetic chronic kidney disease; D64.9 Anemia, unspecified; E87.5 Hyperkalemia; I48.91 Unspecified atrial fibrillation; E11.51 Type 2 diabetes mellitus with diabetic peripheral angiopathy without gangrene; Z88.0 Allergy status to penicillin; Z95.1 Presence of aortocoronary bypass graft; Z88.1 Allergy status to other antibiotic agents; Z79.82 Long term (current) use of aspirin; Z79.899 Other long term (current) drug therapy; Z87.891 Personal history of nicotine dependence; Z86.73 Personal history of transient ischemic attack (TIA), and cerebral infarction without residual deficits
CPT/HCPCS: 36415; 36558; 71045; 71250; 74018; 74176; 76937; 77001; 78582; 78707; 80053; 80061; 81001; 82570; 82948; 83036; 83605; 83690; 83735; 83880; 84100; 84133; 84145; 84156; 84300; 84443; 84484; 84520; 84560; 85025; 85379; 85610; 85730; 86704; 86706; 87040; 87081; 87340; 93005; 93306; 93930; 93970; 93975; 94640; 94760; 97116; 97161; 97530; 99152; 99153; 99291; A4615; A6258; A6402; A6449; A9270; A9539; A9540; A9562; C1750; C1751; C1752; C1769; C1894; E1594; G0257; G0378; J0360; J0456; J0696; J1160; J1644; J1650; J1815; J1940; J2150; J2270; J2405; J2919; J3490; J7030; Q4081